=== PATIENT | female | born 1945 | race Caucasian/White ===

== ENCOUNTER 2022-06-07 08:14 | Inpatient (IN) ==
[2022-06-07] MEDS ORDERED: 0.9 % SODIUM CHLORIDE 500 ML IV ONE (08:50)
[2022-06-07] MEDS ORDERED: PHENobarb/HYOSCY/ATROPINE/SCOP 1 DOSE BOTTLE PO ONE (08:50)
[2022-06-07] MEDS ORDERED: ONDANSETRON 4 MG ODT TABLET SL ONE (08:50)
--- NOTE | 2022-06-07 08:56 | Emergency Department Note ---
Abdominal Pain HPI General Chief Complaint: Abdominal Pain Stated Complaint: Lower Chest Pain Time Seen by Provider: 06/07/22 08:33 Source: patient and family Mode of arrival: ambulatory Limitations: no limitations History of Present Illness HPI Narrative: Narrative: 76-year-old female with past medical history of A. fib on Coumadin, diverticulitis, allergy to azithromycin, cephalexin, clindamycin and as below pr esents with dull persistent moderate 6/10 abdominal pain more in the epigastric region associated with mild dizziness shortness of breath nausea and vomiting. No headache no chest pain no constipation diarrhea fever or chills. Patient is fully immunized for COVID including boosters. Related Data Home Medications Medication Instructions Recorded Confirmed bevacizumab 25 mg/mL intravenous 25 mg IV .[id number] 10/05/20 06/07/22 solution (Avastin) multivitamin [Daily Vitamins] 1 tab PO QDAY 10/05/20 06/07/22 simvastatin 20 mg tablet 20 mg PO DAILY 10/05/20 06/08/22 carvedilol 25 mg tablet (Coreg) 25 mg PO BID 10/11/20 06/07/22 latanoprost 0.005 % eye drops 1 drp ophthalmic (eye) QPM 06/08/22 06/08/22 Previous Rx's Medication Instructions Recorded potassium chloride 10 mEq 10 meq PO BID #90 caps 11/22/20 capsule,extended release warfarin 5 mg tablet See Rx Instructions .Route 04/11/22 .COMPLEX #30 tabs Allergies Allergy/AdvReac Type Severity Reaction Status Date / Time azithromycin AdvReac Diarrhea Verified 06/07/22 08:29 cephalexin AdvReac Diarrhea Verified 06/07/22 08:29 clindamycin AdvReac Diarrhea Verified 06/07/22 08:29 Review of Systems ROS ROS Narrative: Narrative: All systems ED: reviewed and negative except as stated. Constitutional: Reports as per HPI PFSH Narrative Patient History Narrative: Narrative: Medical/Surgical/Family History All Active Problems (Updated 06/08/22 @ 07:55 by Frankie Fenton MD) Small bowel obstruction (Acute) MCC (current) use of anticoagulants (Acute) Annual physical exam (Acute) Need for hepatitis C screening test (Acute) Medicare annual wellness visit, initial (Acute) History of tubal ligation (Chronic) History of surgery (Chronic) Diverticulitis (Chronic) COPD (chronic obstructive pulmonary disease) (Chronic) Atrial fibrillation (Chronic) Medical History Annual physical exam Atrial fibrillation COPD (chronic obstructive pulmonary disease) 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 History of tubal ligation 1977? Family History Mother Lung cancer Grandfather Lung cancer Maternal Grandmother Lung cancer Maternal Social History Smoking Status: Current every day smoker Alcohol Intake Frequency: does not drink Substance Use: does not use Exam Narrative Narrative: Narrative: General Limitations: no limitations Head Head: Present atraumatic and normocephalic Respiratory Respiratory: Present normal lung sounds bilaterally Cardiovascular Cardiovascular: Present irregular rhythm Adbominal Abdominal: Present soft, tenderness (diffuse, more epigastric region), guarding and normal bowel sounds; Absent rebound or organomegaly Extremities Extremities: Absent pedal edema, cyanosis or clubbing Neurological Neurological: Present alert and oriented X3 Skin Skin: Present warm (WNL) Course Course Course Narrative: CBC, CMP, UA, amylase, lipase, PT/INR, COVID, CT abdominal pelvis with contrast were ordered. Normal saline 500 mL IV Zofran 4 mg IV and GI cocktail was given. WBC count is 13.3 with left shift INR 1.[address] abdomen pelvis is consistent with [facility] NAME: Tatyana Cordero [address] [place] [address] : 1945 [address] Service Date: 06/07/22 Report # [id number] [place] [address] Bharathi Villanueva M.D. MR #: [id number] Cat Scan Report Signed Ordering Physician:Frankie Fenton M.D. Date of Service:06/07/22 Procedure(s):CT abdomen pelvis w con CLINICAL INFORMATION: Abdominal pain COMPARISON: None. TECHNIQUE: Following enteric contrast, 80 cc of Isovue-370 were injected intravenously, and 60 seconds later, 0.625 mm helical slices were obtained from the mid heart through the subtrochanteric regions. Following reconstruction, 2.5 mm sagittal, coronal and axial reformatted images were processed and reviewed at bone, lung and soft tissue windows. Five minutes later, 0.625 mm helical slices were obtained from the mid heart through the kidneys and viewed at soft tissue windows.The exam was performed using radiation dose optimization techniques including, but not limited to, automated exposure control, adjustment of the mA and/or kV according to patient size and use of iterative reconstruction technique. FINDINGS: The lung bases show mild atelectasis in the left lower lobe. No infiltrates or effusions. The heart is markedly enlarged with calcific plaque in the visualized coronary arteries. Abdominal images show the gallbladder and bile ducts, liver, both kidneys, adrenal glands, spleen, pancreas and aorta, including aortic branches, are normal in size, configuration and attenuation without focal lesion. Small amount of ascites present in the perihepatic and deep true pelvic regions. No free air or adenopathy. Pelvic images show normal urinary bladder. Hysterectomy oophorectomy changes noted. A high-grade mid jejunal obstruction present-likely related to adhesions or stricture. The stomach duodenum and proximal jejunum are moderately dilated to the obstruction level with the distal small bowel is decompressed. Normal amount of stool present within the colon. Bone windows show no osseous abnormality IMPRESSION: High-grade mid jejunal obstruction likely related to adhesions or stricture. It is located in the right upper quadrant. Small of fluid in the perihepatic and deep true pelvis suggests early third spacing. Small epigastric hernia containing the anterior wall of the transverse colon. Marked cardiomegaly Interpreted and Authenticated by: Bharathi Villanueva 06/07/22 will contact surgery. Discussed case with Dr. Grant who will come and evaluate the patient. Vital Signs Vital signs: Vital Signs Temperature 97.7 F 06/07/22 08:22 Pulse Rate 136 H 06/07/22 08:22 Respiratory Rate 16 06/07/22 08:22 Blood Pressure 102/72 06/07/22 08:22 Pulse Oximetry (%) 94 06/07/22 08:22 Oxygen Delivery Method 06/07/22 08:22 Temperature 99 F 06/08/22 03:24 Pulse Rate 130 H 06/08/22 03:24 Respiratory Rate 18 06/08/22 03:24 Blood Pressure 98/60 09/30/22 03:24 Pulse Oximetry (%) 90 06/08/22 03:24 Oxygen Delivery Method 06/08/22 03:24 Oxygen Flow Rate (L/min) 2 06/07/22 18:35 MDM MDM Narrative Medical decision making narrative: Narrative: Lab Data Result diagrams: 06/07/22 09:16 06/07/22 09:16 Labs: Lab Results 06/07/22 06/07/22 06/07/22 Range/Units 09:06 09:16 09:16 WBC 13.3 H (4.5-11.0) K/mcL RBC 4.72 (3.59-5.38) M/mcL Hgb 14.8 (11.2-15.7) g/dL Hct 45.3 H (34.1-44.9) % POC Hct 47.0 (36-48) MCV 96.0 (80.0-100.0) fL MCH 31.4 (26.0-34.0) pg MCHC 32.7 (31.0-36.0) g/dL RDW 13.4 (11.5-14.5) % Plt Count 140 (140-440) K/mcL MPV 12.3 (8.8-12.5) fL Immature Gran % (Auto) 0.5 (0.0-0.5) % Neut % (Auto) 81.7 H (38.0-78.0) % Lymph % (Auto) 12.4 L (15.5-49.0) % [place] % (Auto) 4.6 (1.0-12.0) % Eos % (Auto) 0.3 (0.0-7.0) % Baso % (Auto) 0.5 (0.0-2.0) % Lymph # (Auto) 1.65 (1.50-4.80) K/mcL [place] # (Auto) 0.61 (0.10-0.90) K/mcL Eos # (Auto) 0.04 (0.00-0.70) K/mcL Baso # (Auto) 0.07 (0.00-0.30) K/mcL Immature Gran # 0.06 H (0.00-0.05) K/mcl Absolute Neutrophils 10.90 H (1.80-8.00) K/mcL PT (11.9-14.5) sec INR (0.9-1.1) POC Sodium 137 (133-145) Sodium 138 (133-145) mmol/L POC Potassium 4.7 (3.3-5.1) Potassium 4.1 (3.3-5.1) mmol/L POC Chloride 98 (96-108) Chloride 97 (96-108) mmol/L Carbon Dioxide 34 H (22-30) mmol/L POC Total CO2 34.0 H (22-30) Anion Gap 7.0 L (8.0-16.0) POC BUN 13 (6-20) BUN 10 (8-23) mg/dL Creatinine 0.6 (0.6-1.1) mg/dL POC Creatinine 0.6 (0.6-1.2) GFR Calculation 88 Glucose 138 H (70-105) mg/dL POC Glucose 143 H (70-105) Calcium 9.5 (8.6-10.4) mg/dL POC WB Ioniz Calcium 1.00 L (1.16-1.32) Total Bilirubin 0.7 (0.1-1.0) mg/dL AST 25 (<32) U/L ALT 22 (<40) U/L Alkaline Phosphatase 117 (39-117) U/L Total Protein 6.7 (5.9-8.4) gm/dL Albumin 4.2 (3.2-5.2) gm/dL Globulin 2.5 (2.2-3.7) gm/dL Albumin/Globulin Ratio 1.7 (1.0-2.3) Amylase 23 L (28-100) U/L Lipase 15 (7-60) U/L Urine Color Urine Appearance (Clear) Urine pH (5.0-9.0) Ur Specific [place] (1.000-1.035) Urine Protein (Negative) mg/dL Urine Glucose (UA) (Negative) mg/dL Urine Ketones (Negative) mg/dL Urine Occult Blood (Negative) mg/dL Urine Nitrate (Negative) Urine Bilirubin (Negative) mg/dL Urine Urobilinogen mg/dL Ur Leukocyte Esterase (Negative) /uL Urine RBC (0-3) /hpf Urine WBC (0-4) /hpf Ur Squamous Epith Cells (0-4) /hpf Amorphous Crystals (None) /hpf Urine Bacteria (0) /hpf Hyaline Casts (0-2) /lph Granular Casts (0-0) /lph Urine Mucus (None) /hpf Ur Culture Indicated? 06/07/22 06/07/22 Range/Units 09:16 09:57 WBC (4.5-11.0) K/mcL RBC (3.59-5.38) M/mcL Hgb (11.2-15.7) g/dL Hct (34.1-44.9) % POC Hct (36-48) MCV (80.0-100.0) fL MCH (26.0-34.0) pg MCHC (31.0-36.0) g/dL RDW (11.5-14.5) % Plt Count (140-440) K/mcL MPV (8.8-12.5) fL Immature Gran % (Auto) (0.0-0.5) % Neut % (Auto) (38.0-78.0) % Lymph % (Auto) (15.5-49.0) % [place] % (Auto) (1.0-12.0) % Eos % (Auto) (0.0-7.0) % Baso % (Auto) (0.0-2.0) % Lymph # (Auto) (1.50-4.80) K/mcL [place] # (Auto) (0.10-0.90) K/mcL Eos # (Auto) (0.00-0.70) K/mcL Baso # (Auto) (0.00-0.30) K/mcL Immature Gran # (0.00-0.05) K/mcl Absolute Neutrophils (1.80-8.00) K/mcL PT 22.8 H (11.9-14.5) sec INR 1.9 H (0.9-1.1) POC Sodium (133-145) Sodium (133-145) mmol/L POC Potassium (3.3-5.1) Potassium (3.3-5.1) mmol/L POC Chloride (96-108) Chloride (96-108) mmol/L Carbon Dioxide (22-30) mmol/L POC Total CO2 (22-30) Anion Gap (8.0-16.0) POC BUN (6-20) BUN (8-23) mg/dL Creatinine (0.6-1.1) mg/dL POC Creatinine (0.6-1.2) GFR Calculation Glucose (70-105) mg/dL POC Glucose (70-105) Calcium (8.6-10.4) mg/dL POC WB Ioniz Calcium (1.16-1.32) Total Bilirubin (0.1-1.0) mg/dL AST (<32) U/L ALT (<40) U/L Alkaline Phosphatase (39-117) U/L Total Protein (5.9-8.4) gm/dL Albumin (3.2-5.2) gm/dL Globulin (2.2-3.7) gm/dL Albumin/Globulin Ratio (1.0-2.3) Amylase (28-100) U/L Lipase (7-60) U/L Urine Color Yellow Urine Appearance Turbid A (Clear) Urine pH 8.0 (5.0-9.0) Ur Specific [place] 1.035 (1.000-1.035) Urine Protein 30 A (Negative) mg/dL Urine Glucose (UA) Negative (Negative) mg/dL Urine Ketones Negative (Negative) mg/dL Urine Occult Blood Negative (Negative) mg/dL Urine Nitrate Negative (Negative) Urine Bilirubin Negative (Negative) mg/dL Urine Urobilinogen Negative mg/dL Ur Leukocyte Esterase Negative (Negative) /uL Urine RBC 4 H (0-3) /hpf Urine WBC 0 (0-4) /hpf Ur Squamous Epith Cells 0 (0-4) /hpf Amorphous Crystals Mod A (None) /hpf Urine Bacteria None (0) /hpf Hyaline Casts 7 H (0-2) /lph Granular Casts 7 H (0-0) /lph Urine Mucus Few A (None) /hpf Ur Culture Indicated? No ED POC Tests ED POC Tests: KRISTINA - SARS Antigen Negative Discharge Plan Patient/Caregiver Discharge Instructions Pt seen by PARTNERSHIP MARKETING MANAGER/PA only: No Clinical Impression: Small bowel obstruction Patient Disposition: Xfer As Inpt ([facility]) Condition: Fair Discharge Date/Time: 06/07/22 13:55
[2022-06-07 09:12] LABS: POC Creatinine 0.6 (0.6-1.2); POC Potassium 4.7 (3.3-5.1)
[2022-06-07 10:25] LABS: Basophils # (Auto) 0.07 K/mcL (0.00-0.30); Basophils % (Auto) 0.5 % (0.0-2.0); Eosinophils # (Auto) 0.04 K/mcL (0.00-0.70); Eosinophils % (Auto) 0.3 % (0.0-7.0); Hematocrit 45.3 % (34.1-44.9); Hemoglobin 14.8 g/dL (11.2-15.7); Lymphocytes # (Auto) 1.65 K/mcL (1.50-4.80); Lymphocytes % (Auto) 12.4 % (15.5-49.0); Mean Corpuscular HGB Conc 32.7 g/dL (31.0-36.0); Mean Platelet Volume 12.3 fL (8.8-12.5); Monocytes # (Auto) 0.61 K/mcL (0.10-0.90); Monocytes % (Auto) 4.6 % (1.0-12.0); Neutrophils % (Auto) 81.7 % (38.0-78.0); Platelet Count 140 K/mcL (140-440); RBC 4.72 M/mcL (3.59-5.38); Red Cell Distribution Width 13.4 % (11.5-14.5); WBC 13.3 K/mcL (4.5-11.0)
--- NOTE | 2022-06-07 10:29 | Cat Scan Report ---
CLINICAL INFORMATION: Abdominal pain COMPARISON: None. TECHNIQUE: Following enteric contrast, 80 cc of Isovue-370 were injected intravenously, and 60 seconds later, 0.625 mm helical slices were obtained from the mid heart through the subtrochanteric regions. Following reconstruction, 2.5 mm sagittal, coronal and axial reformatted images were processed and reviewed at bone, lung and soft tissue windows. Five minutes later, 0.625 mm helical slices were obtained from the mid heart through the kidneys and viewed at soft tissue windows.The exam was performed using radiation dose optimization techniques including, but not limited to, automated exposure control, adjustment of the mA and/or kV according to patient size and use of iterative reconstruction technique. FINDINGS: The lung bases show mild atelectasis in the left lower lobe. No infiltrates or effusions. The heart is markedly enlarged with calcific plaque in the visualized coronary arteries. Abdominal images show the gallbladder and bile ducts, liver, both kidneys, adrenal glands, spleen, pancreas and aorta, including aortic branches, are normal in size, configuration and attenuation without focal lesion. Small amount of ascites present in the perihepatic and deep true pelvic regions. No free air or adenopathy. Pelvic images show normal urinary bladder. Hysterectomy oophorectomy changes noted. A high-grade mid jejunal obstruction present-likely related to adhesions or stricture. The stomach duodenum and proximal jejunum are moderately dilated to the obstruction level with the distal small bowel is decompressed. Normal amount of stool present within the colon. Bone windows show no osseous abnormality IMPRESSION: High-grade mid jejunal obstruction likely related to adhesions or stricture. It is located in the right upper quadrant. Small of fluid in the perihepatic and deep true pelvis suggests early third spacing. Small epigastric hernia containing the anterior wall of the transverse colon. Marked cardiomegaly Interpreted and Authenticated by: Bharathi Villanueva 06/07/22
[2022-06-07 10:46] LABS: ALT/SGPT 22 U/L (<40); AST/SGOT 25 U/L (<32); Albumin 4.2 gm/dL (3.2-5.2); Albumin/Globulin Ratio 1.7 (1.0-2.3); Alkaline Phosphatase 117 U/L (39-117); Amylase 23 U/L (28-100); Bilirubin,Total 0.7 mg/dL (0.1-1.0); Blood Urea Nitrogen 10 mg/dL (8-23); Calcium 9.5 mg/dL (8.6-10.4); Carbon Dioxide 34 mmol/L (22-30); Chloride 97 mmol/L (96-108); Globulin 2.5 gm/dL (2.2-3.7); Glomerular Filtration Rate 88; Glucose 138 mg/dL (70-105)
[2022-06-07 10:51] LABS: INR 1.9 (0.9-1.1); Prothrombin Time 22.8 sec (11.9-14.5)
[2022-06-07 11:43] LABS: Appearance,Urine TURBID (Clear); Bilirubin,Urine Negative (Negative); Color,Urine YELLOW; Culture Indicated,Urine No; Glucose,Urine (UA) Negative (Negative); Ketones,Urine Negative (Negative); Leukocyte Esterase,Urine Negative /uL (Negative); Mucus,Urine FEW /hpf; Nitrate,Urine Negative (Negative); Protein,Urine 30 mg/dL (Negative); Specific Gravity,Urine 1.035 (1.000-1.035); Urine Amorphous Crystals MOD /hpf; Urine Blood Negative (Negative); Urine Granular Cast 7 /lph (0-0); Urine Hyaline Cast 7 /lph (0-2); Urine RBC 4 /hpf (0-3); Urine Squamous Epithelial Cell 0 /hpf (0-4); Urine WBC 0 /hpf (0-4); Urobilinogen,Urine Negative
--- NOTE | 2022-06-07 12:55 | General Surg History&Physical ---
HPI History of Present Illness Patient information: Note initiated : 06/07/22 at 12:52 pm Service Date, if different from initiated Date: [] Patient: Tatyana Cordero a 76 y/o F admitted on for Lower Chest Pain. Chief Complaint: [] Chief complaint: Abdominal distention abdominal pain History of present illness: Ms. Cordero is a 76 year old F who presents with 1 day history of abdominal distention, epigastric abdominal pain, nausea without emesis. Patient denies any prior history of similar sort of pain or problems. Patient has an extensive past surgical history involving diverticulitis, ostomy and ostomy reversal. At this time she has no fevers or chills, does have some abdominal pain with mild nausea without emesis. 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) Annual physical exam (Acute) Need for hepatitis C screening test (Acute) Medicare annual wellness visit, initial (Acute) History of tubal ligation (Chronic) History of surgery (Chronic) Diverticulitis (Chronic) COPD (chronic obstructive pulmonary disease) (Chronic) Atrial fibrillation (Chronic) Medical History Annual physical exam Atrial fibrillation COPD (chronic obstructive pulmonary disease) 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 History of tubal ligation 1977? Family History Mother Lung cancer Grandfather Lung cancer Maternal Grandmother Lung cancer Maternal Social History marital status: occupational status: retired smoking status: Current every day smoker alcohol intake frequency: does not drink substance use type: does not use MEDS/ALLERGIES Home Medications and Allergies Home Medications Medication Instructions Recorded Confirmed Type bevacizumab 25 mg/mL intravenous 25 mg IV .[id number] 10/05/20 06/07/22 History solution (Avastin) latanoprost See Rx Instructions ophthalmic 10/05/20 06/07/22 History (eye) QDAY multivitamin [Daily Vitamins] 1 tab PO QDAY 10/05/20 06/07/22 History simvastatin 20 mg tablet 20 mg PO QDAY 10/05/20 06/07/22 History carvedilol 25 mg tablet (Coreg) 25 mg PO BID 10/11/20 06/07/22 History potassium chloride 10 mEq 10 meq PO BID #90 caps 11/22/20 06/07/22 Rx capsule,extended release warfarin 5 mg tablet See Rx Instructions .Route 04/11/22 06/07/22 Rx .COMPLEX #30 tabs Allergies Allergy/AdvReac Type Severity Reaction Status Date / Time azithromycin AdvReac Diarrhea Verified 06/07/22 08:29 cephalexin AdvReac Diarrhea Verified 06/07/22 08:29 clindamycin AdvReac Diarrhea Verified 06/07/22 08:29 Physical Examination Vital Signs Vital signs: Temp Pulse Resp BP Pulse Ox O2 Del Method O2 Flow Rate 97.7 F 125 H 16 115/75 90 2 06/07/22 08:22 06/07/22 12:50 06/07/22 08:22 06/07/22 12:50 06/07/22 12:50 06/07/22 12:50 06/07/22 12:50 General physical appearance General physical exam: well developed, well nourished and no distress Eyes Eye exam: PERRL and normal ocular movement ENT ENT exam: normal pinna, normal nares, normal mucosa, no hearing loss and no congestion Head Head exam IM: Present atraumatic and normocephalic Neck Neck exam: no masses, no bruits, trachea midline, no lymphadenopathy and no venous distension Cardiovascular Cardiovascular exam IM: Present normal rate and rhythm Respiratory Respiratory exam: normal expansion, normal respiratory effort, clear to percussion and clear to auscultation Abdomen Abdomen: Present soft, non tender, bowel sounds and distended; Absent guarding, rigid or rebound Hernia: Present none Genitourinary Genitourinary (Female): Present normal external genitalia Rectum Rectum: Present normal sphincter tone, no hemorrhoids, no tenderness, no masses and no bleeding Integumentary Integumentary: Present no rash, no growths and no abnormal pigmentation Neurologic Neurologic: Present normal coordination and normal sensation Musculoskeletal Musculoskeletal: Present normal gait and normal posture Psychiatric Psychiatric: Present oriented to time, oriented to person, oriented to place, speech is normal and memory intact Results Labs Result diagrams: 06/07/22 09:16 06/07/22 09:16 Labs: Abnormal lab results 06/07/22 06/07/22 06/07/22 Range/Units 09:06 09:16 09:16 WBC 13.3 H (4.5-11.0) K/mcL Hct 45.3 H (34.1-44.9) % Neut % (Auto) 81.7 H (38.0-78.0) % Lymph % (Auto) 12.4 L (15.5-49.0) % Immature Gran # 0.06 H (0.00-0.05) K/mcl Absolute Neutrophils 10.90 H (1.80-8.00) K/mcL PT (11.9-14.5) sec INR (0.9-1.1) Carbon Dioxide 34 H (22-30) mmol/L POC Total CO2 34.0 H (22-30) Anion Gap 7.0 L (8.0-16.0) Glucose 138 H (70-105) mg/dL POC Glucose 143 H (70-105) POC WB Ioniz Calcium 1.00 L (1.16-1.32) Amylase 23 L (28-100) U/L Urine Appearance (Clear) Urine Protein (Negative) mg/dL Urine RBC (0-3) /hpf Amorphous Crystals (None) /hpf Hyaline Casts (0-2) /lph Granular Casts (0-0) /lph Urine Mucus (None) /hpf 06/07/22 06/07/22 Range/Units 09:16 09:57 WBC (4.5-11.0) K/mcL Hct (34.1-44.9) % Neut % (Auto) (38.0-78.0) % Lymph % (Auto) (15.5-49.0) % Immature Gran # (0.00-0.05) K/mcl Absolute Neutrophils (1.80-8.00) K/mcL PT 22.8 H (11.9-14.5) sec INR 1.9 H (0.9-1.1) Carbon Dioxide (22-30) mmol/L POC Total CO2 (22-30) Anion Gap (8.0-16.0) Glucose (70-105) mg/dL POC Glucose (70-105) POC WB Ioniz Calcium (1.16-1.32) Amylase (28-100) U/L Urine Appearance Turbid A (Clear) Urine Protein 30 A (Negative) mg/dL Urine RBC 4 H (0-3) /hpf Amorphous Crystals Mod A (None) /hpf Hyaline Casts 7 H (0-2) /lph Granular Casts 7 H (0-0) /lph Urine Mucus Few A (None) /hpf Diabetes panel 06/07/22 Range/Units 09:16 Sodium 138 (133-145) mmol/L Potassium 4.1 (3.3-5.1) mmol/L Chloride 97 (96-108) mmol/L Carbon Dioxide 34 H (22-30) mmol/L BUN 10 (8-23) mg/dL Creatinine 0.6 (0.6-1.1) mg/dL Glucose 138 H (70-105) mg/dL Calcium 9.5 (8.6-10.4) mg/dL AST 25 (<32) U/L ALT 22 (<40) U/L Alkaline Phosphatase 117 (39-117) U/L Total Protein 6.7 (5.9-8.4) gm/dL Albumin 4.2 (3.2-5.2) gm/dL Calcium panel 06/07/22 Range/Units 09:16 Calcium 9.5 (8.6-10.4) mg/dL Albumin 4.2 (3.2-5.2) gm/dL Pituitary panel 06/07/22 Range/Units 09:16 Sodium 138 (133-145) mmol/L Potassium 4.1 (3.3-5.1) mmol/L Chloride 97 (96-108) mmol/L Carbon Dioxide 34 H (22-30) mmol/L BUN 10 (8-23) mg/dL Creatinine 0.6 (0.6-1.1) mg/dL Glucose 138 H (70-105) mg/dL Calcium 9.5 (8.6-10.4) mg/dL Adrenal panel 06/07/22 Range/Units 09:16 Sodium 138 (133-145) mmol/L Potassium 4.1 (3.3-5.1) mmol/L Chloride 97 (96-108) mmol/L Carbon Dioxide 34 H (22-30) mmol/L BUN 10 (8-23) mg/dL Creatinine 0.6 (0.6-1.1) mg/dL Glucose 138 H (70-105) mg/dL Calcium 9.5 (8.6-10.4) mg/dL Total Bilirubin 0.7 (0.1-1.0) mg/dL AST 25 (<32) U/L ALT 22 (<40) U/L Alkaline Phosphatase 117 (39-117) U/L Total Protein 6.7 (5.9-8.4) gm/dL Albumin 4.2 (3.2-5.2) gm/dL All other labs normal. Imaging CT scan - abdomen: image reviewed A/P Assessment and plan (1) Small bowel obstruction: Plan: This is a pleasant 76-year-old female who presents with signs and symptoms most consistent with partial small bowel obstruction. Plan: Admit, n.p.o., NG tube and IV fluid. Anticipate small bowel follow-through tomorrow. Status: Acute Time Spent With Patient Time: Total time spent is greater than 50% in coordination of care (as documented) at patient's floor/unit and/or counseling patient:
[2022-06-07] MEDS ORDERED: BENZOCAINE 1 SPRAY BOTTLE TOPICAL ONE (13:04)
[2022-06-07] MEDS ORDERED: HYDROmorphone 0.5 MG/0.5 ML SYRINGE IV ONE (13:14)
--- NOTE | 2022-06-07 13:58 | XRay Report ---
CLINICAL INFORMATION: Post NG placement small bowel obstruction COMPARISON: None. FINDINGS: NG tip overlies the proximal gastric body. Stomach and proximal small bowel are moderately dilated with distal small bowel and colon decompression compatible high-grade distal small bowel obstruction. No change. No free air. IMPRESSION: NG tube in satisfactory position. High-grade distal small bowel obstruction pattern stable Interpreted and Authenticated by: Bharathi Villanueva 06/07/22
[2022-06-07] MEDS: DEXTROSE 5%-1/2NS 1,000 ML IV SCH ×2 (14:21→23:49)
[2022-06-07] MEDS: 0.9 % SODIUM CHLORIDE 10 ML SYRINGE IV SCH ×2 (14:26→23:43)
[2022-06-07] MEDS ORDERED: SUCRETS LOZENGE PO PRN (15:33)
[2022-06-07] MEDS: ACETAMINOPHEN 500 MG/50 ML BAG IV PRN ×2 (18:00→23:43)
[2022-06-08] MEDS: ONDANSETRON 4 MG/2 ML VIAL IV PRN ×2 (03:50→22:37)
[2022-06-08] MEDS: HYDROmorphone 0.5 MG/0.5 ML SYRINGE IV PRN ×4 (04:36→21:17)
[2022-06-08] MEDS: 0.9 % SODIUM CHLORIDE 10 ML SYRINGE IV SCH ×3 (04:37→22:12)
[2022-06-08] MEDS ORDERED: HYDROmorphone 0.5 MG/0.5 ML SYRINGE ONE (04:45)
[2022-06-08] MEDS: ACETAMINOPHEN 500 MG/50 ML BAG IV PRN ×3 (05:32→23:22)
[2022-06-08] MEDS: DEXTROSE 5%-1/2NS 1,000 ML IV SCH ×3 (10:51→22:38)
--- NOTE | 2022-06-08 13:40 | General Surgery Progress Note ---
SUBJECTIVE Subjective Patient information: Note initiated : 06/08/22 at 1:35 pm Service Date, if different from initiated Date: [] Patient: Tatyana Cordero 76 y/o F admitted on 06/07/22 for Lower Chest Pain. Chief Complaint: [] Principal diagnosis: Admitted with small bowel obstruction Interval history: Did well overnight, continues to have crampy intermittent abdominal pain. No flatus, no bowel movement at this time. No fevers chills nausea or vomiting. Undergoing small bowel follow-through at this time. Constitutional Vitals: Vital Signs Temp Pulse Resp BP Pulse Ox O2 Del Method O2 Flow Rate 99.1 F H 130 H 16 98/67 96 5 06/08/22 12:00 06/08/22 03:24 06/08/22 12:00 06/08/22 12:00 06/08/22 12:00 06/08/22 12:00 06/08/22 12:00 Period Temp Pulse Resp BP Sys/Solomon Pulse Ox O2 Del Method O2 Flow Rate Last 24 Hr 97.7 F-99.1 F 119-130 16-20 90-106/55-67 90-96 Nasal Cannula- Room Air 2-5 Intake and Output 06/07/22 06/08/22 06/08/22 21:59 05:59 13:59 Intake Total 50 1107 1050 Output Total 100 1200 Balance -50 -93 1050 Weight 105 lb 8 oz Intake & Output: Intake & Output 06/07/22 06/08/22 06/08/22 21:59 05:59 13:59 Intake Total 50 1107 1050 Output Total 100 1200 Balance -50 -93 1050 Weight 105 lb 8 oz Intake: IV 50 997 1050 Dextrose 5%-1/2Ns IV Solution 1 947 1000 ,000 ml @ 100 mls/hr IV .Q10H [facility] Rx#:[id number] Oral 50 Tube Feeding 0 0 NG Tube Flush 60 Right Nare 60 Output: Gastric Drainage 100 900 Right Nare 100 900 Void Amount 300 Other: Urine Appearance Clear Clear Urine Color Yellow Yellow # Voids 1 General appearance: no acute distress GI/Abdominal GI/Abdominal exam: Present soft and distended; Absent guarding, hernia, rebound or tenderness A/P Assessment and plan (1) Small bowel obstruction: Status: Acute Plan Continue n.p.o. Awaiting results of small bowel follow-through. Time Spent With Patient Time: Total time spent is greater than 50% in coordination of care (as documented) at patient's floor/unit and/or counseling patient:
[2022-06-08] MEDS ORDERED: CARVEDILOL 6.25 MG TABLET ONE (22:31)
[2022-06-09] MEDS: DEXTROSE 5%-1/2NS 1,000 ML IV SCH ×3 (04:07→18:02)
[2022-06-09] MEDS: ACETAMINOPHEN 500 MG/50 ML BAG IV PRN ×2 (05:12→18:54)
[2022-06-09] MEDS: 0.9 % SODIUM CHLORIDE 10 ML SYRINGE IV SCH ×3 (05:13→20:50)
[2022-06-09 07:26] LABS: Basophils # (Auto) 0.05 K/mcL (0.00-0.30); Basophils % (Auto) 0.4 % (0.0-2.0); Eosinophils % (Auto) 0.8 % (0.0-7.0); Hematocrit 43.8 % (34.1-44.9); Hemoglobin 13.5 g/dL (11.2-15.7); Lymphocytes % (Auto) 18.2 % (15.5-49.0); Mean Cell Volume 100.7 fL (80.0-100.0); Mean Corpuscular HGB Conc 30.8 g/dL (31.0-36.0); Mean Platelet Volume 12.2 fL (8.8-12.5); Monocytes # (Auto) 1.77 K/mcL (0.10-0.90); Monocytes % (Auto) 14.7 % (1.0-12.0); Neutrophils % (Auto) 65.4 % (38.0-78.0); Platelet Count 110 K/mcL (140-440); RBC 4.35 M/mcL (3.59-5.38); Red Cell Distribution Width 13.3 % (11.5-14.5); WBC 12.1 K/mcL (4.5-11.0)
[2022-06-09 07:53] LABS: Blood Urea Nitrogen 13 mg/dL (8-23); Calcium 8.7 mg/dL (8.6-10.4); Chloride 93 mmol/L (96-108); Glomerular Filtration Rate 93; Glucose 130 mg/dL (70-105)
[2022-06-09] MEDS ORDERED: CARVEDILOL 12.5 MG TABLET PO SCH (08:00)
[2022-06-09] MEDS: CARVEDILOL 12.5 MG TABLET PO SCH ×2 (08:33→17:38)
--- NOTE | 2022-06-09 09:16 | XRay Report ---
INDICATION: f/u sbo TECHNIQUE: Water-soluble contrast material was administered through a nasogastric tube. Serial images were obtained to 24 hours postingestion COMPARISON: Previous plain film examination dated 06/07/2022. Previous CT scan dated 06/07/2022 FINDINGS: There is an esophagogastric tube within the stomach. Coke Inspector film demonstrates a gas-filled mildly dilated small bowel. There is some fecal material within the colon. Imaging through 24 hours demonstrates very slow progression of contrast material within small bowel. At 24 hours most of the contrast material has been absorbed. Patient was placed on suction due to severe pain and nausea. No definite contrast material identified within the colon by 24 hours. IMPRESSION: 1. No definite colonic contrast material at 24 hours post ingestion 2. Mildly dilated small bowel with prolonged transit time 3. This patient was on nasogastric tube suction due to pain and nausea Interpreted and Authenticated by: Bharathi Walker 06/09/22
--- NOTE | 2022-06-09 09:38 | General Surgery Progress Note ---
SUBJECTIVE Subjective Patient information: Note initiated : 06/09/22 at 9:35 am Service Date, if different from initiated Date: [] Patient: Tatyana Cordero 76 y/o F admitted on 06/07/22 for Lower Chest Pain. Chief Complaint: [] Principal diagnosis: Admitted with small bowel obstruction Interval history: Patient with continued crampy abdominal pain this morning, underwent small bowel follow-through yesterday which did not show contrast in the colon by 24 hours. Patient with some nausea this morning, NG tube placed back on suction with 2 L of output. Constitutional Vitals: Vital Signs Temp Pulse Resp BP Pulse Ox O2 Del Method O2 Flow Rate 99 F 103 H 16 100/57 97 2 06/09/22 08:00 06/09/22 03:17 06/09/22 08:00 06/09/22 08:00 06/09/22 08:00 06/09/22 08:40 06/09/22 08:40 Period Temp Pulse Resp BP Sys/Solomon Pulse Ox O2 Del Method O2 Flow Rate Last 24 Hr 98.7 F-100 F 103-131 - 81-103/57-67 90-97 Nasal Cannula- Room Air 2-5 Intake and Output 06/08/22 06/09/22 06/09/22 21:59 05:59 13:59 Intake Total 1050 1872 50 Output Total 1999 1600 Balance -950 272 50 Weight 108 lb 12.8 oz Intake & Output: Intake & Output 06/08/22 06/09/22 06/09/22 21:59 05:59 13:59 Intake Total 1050 1872 50 Output Total 1999 1600 Balance -950 272 50 Weight 108 lb 12.8 oz Intake: IV 1050 1872 50 Dextrose 5%-1/2Ns IV Solution 1 1000 1822 ,000 ml @ 150 mls/hr IV .Q6H40M [facility] Rx#:[id number] Tube Feeding 0 0 0 Output: Gastric Drainage 1999 1400 Right Nare 1999 1400 Void Amount 200 Other: Urine Appearance Clear Clear Urine Color Yellow Dark Yellow # Voids 250 General appearance: no acute distress GI/Abdominal GI/Abdominal exam: Present soft and distended; Absent rebound, rigid or tenderness A/P Assessment and plan (1) Small bowel obstruction: Plan: Hospital day #2 admitted with partial small bowel obstruction. Long discussion with the patient about resolution of bowel obstruction and increased likelihood of need for surgery with a failed small bowel follow-through. She does not have any signs of sepsis or bowel ischemia at this time therefore no need for urgent surgical intervention right now. Plan: Continue with NG tube suction at this time. We will follow KUB in a.m. We will recheck INR this morning and continue to hold Coumadin. Will further discuss surgery with patient later today. Status: Acute Time Spent With Patient Time: Total time spent is greater than 50% in coordination of care (as documented) at patient's floor/unit and/or counseling patient:
[2022-06-09 10:56] LABS: INR 1.7 (0.9-1.1); Prothrombin Time 20.9 sec (11.9-14.5)
[2022-06-10] MEDS: DEXTROSE 5%-1/2NS 1,000 ML IV SCH ×3 (00:39→14:56)
[2022-06-10] MEDS: HYDROmorphone 0.5 MG/0.5 ML SYRINGE IV PRN ×3 (03:02→16:37)
[2022-06-10] MEDS: 0.9 % SODIUM CHLORIDE 10 ML SYRINGE IV SCH ×3 (04:57→22:00)
[2022-06-10] MEDS: ACETAMINOPHEN 500 MG/50 ML BAG IV PRN ×3 (05:11→23:36)
[2022-06-10] MEDS: CARVEDILOL 12.5 MG TABLET PO SCH ×2 (09:33→16:28)
--- NOTE | 2022-06-10 09:36 | General Surgery Progress Note ---
SUBJECTIVE Subjective Patient information: Note initiated : 06/10/22 at 9:34 am Service Date, if different from initiated Date: [] Patient: Tatyana Cordero 76 y/o F admitted on 06/07/22 for Lower Chest Pain. Chief Complaint: [] Principal diagnosis: Admitted with small bowel obstruction Interval history: Patient with no flatus, no bowel movement. She reports that there is no change in the distention of her abdomen or her pain. No contrast to the colon in greater than 24 hours on small bowel follow-through, no resolution of bowel obstruction. Pertinent ROS: No fevers chills nausea or vomiting Constitutional Vitals: Vital Signs Temp Pulse Resp BP Pulse Ox O2 Del Method O2 Flow Rate 97.4 F 91 H 20 92/57 92 2 06/10/22 07:14 06/10/22 07:14 06/10/22 07:14 06/10/22 07:14 06/10/22 07:14 06/10/22 08:50 06/10/22 08:50 Period Temp Pulse Resp BP Sys/Solomon Pulse Ox O2 Del Method O2 Flow Rate Last 24 Hr 97.4 F-99.1 F 91-116 16-20 86-100/49-59 92-97 Nasal Cannula- Room Air 2-2 Intake and Output 06/09/22 06/10/22 06/10/22 21:59 05:59 13:59 Intake Total 6539 813 7340 Output Total 325 820 Balance 434 915 0533 Weight 115 lb 11.2 oz Intake & Output: Intake & Output 06/09/22 06/10/22 06/10/22 21:59 05:59 13:59 Intake Total 5333 775 7058 Output Total 325 820 Balance 018 983 5632 Weight 115 lb 11.2 oz Intake: IV 0654 743 8317 Dextrose 5%-1/2Ns IV Solution 8 684 065 3628 ,000 ml @ 150 mls/hr IV .Q6H40M [facility] Rx#:[id number] Tube Feeding 0 0 0 NG Tube Flush 60 Right Nare 60 Output: Gastric Drainage 70 Right Nare 70 Void Amount 325 750 Other: Urine Appearance Clear Clear Urine Color Yellow Dark Yellow General appearance: cooperative and no acute distress GI/Abdominal GI/Abdominal exam: Present soft, distended and tenderness; Absent guarding, rebound or rigid A/P Assessment and plan (1) Small bowel obstruction: Plan: This is a pleasant 76-year-old female with a failed small bowel follow-through after being admitted for partial small bowel obstruction. Long discussion with the patient about high likelihood of her bowel obstruction not resolving without surgery. She verbalizes understanding. Risk, benefits, alternatives to surgical intervention discussed with her at length including details of procedure and what to expect. She verbalizes understanding, all of her questions are answered and she desires to continue with surgery. Plan: Exploratory laparotomy, possible lysis of adhesions, possible small bowel resection. Status: Acute Time Spent With Patient Time: Total time spent is greater than 50% in coordination of care (as documented) at patient's floor/unit and/or counseling patient:
[2022-06-10] MEDS ORDERED: ONDANSETRON 4 MG/2 ML VIAL ONE (11:05)
[2022-06-10] MEDS ORDERED: NALBUPHINE 10 MG/ML AMPUL IV ONE (11:05)
[2022-06-10] MEDS ORDERED: LIDOCAINE HCL/PF 100 MG/5 ML SYRINGE IV ONE (11:05)
[2022-06-10] MEDS ORDERED: PROPOFOL 200 MG/20 ML VIAL IV ONE (11:05)
[2022-06-10] MEDS ORDERED: KETAMINE 50 MG/ML Syringe (ANEST) IV ONE (11:05)
[2022-06-10] MEDS ORDERED: METOPROLOL TARTRATE 5 MG/5 ML VIAL IV ONE (11:05)
[2022-06-10] MEDS ORDERED: NALOXONE HCL 0.4 MG/ML VIAL ONE (11:05)
[2022-06-10] MEDS ORDERED: HYDROmorphone 1 MG/ML SYRINGE ONE (11:05)
[2022-06-10] MEDS ORDERED: ROCURONIUM 10 MG/ML ML IV ONE (11:05)
[2022-06-10] MEDS ORDERED: DEXAMETHASONE 10 MG/ML VIAL ONE (11:05)
[2022-06-10] MEDS ORDERED: MAGNESIUM SULFATE 2 GM/50 ML BAG IV ONE (11:05)
[2022-06-10] MEDS ORDERED: SUGAMMADEX SODIUM 200 MG/2 ML VIAL IV ONE (11:05)
[2022-06-10] MEDS ORDERED: PHENYLephrine 1 MG/10 ML SYRINGE (ANEST) ONE (11:05)
[2022-06-10] MEDS ORDERED: NALOXONE HCL 0.4 MG/ML VIAL IV PRN (12:38)
[2022-06-10] MEDS ORDERED: PROMETHAZINE 25 MG/ML VIAL IV PRN (12:38)
[2022-06-10] MEDS ORDERED: ONDANSETRON 4 MG/2 ML VIAL IV PRN (12:38)
[2022-06-10] MEDS ORDERED: MEPERIDINE 25 MG/ML VIAL IV PRN (12:38)
[2022-06-10] MEDS ORDERED: diphenhydrAMINE 50 MG/ML VIAL IV PRN (12:38)
[2022-06-10] MEDS ORDERED: IPRATROPIUM/ALBUTEROL 3 ML AMPUL.NEB NEB PRN (12:38)
[2022-06-10] MEDS ORDERED: LACTATED RINGERS 250 ML IV PRN (12:38)
[2022-06-10] MEDS ORDERED: LACTATED RINGERS 1,000 ML IV SCH (12:45)
--- NOTE | 2022-06-10 13:02 | Operative Note ---
Brief Operative Note Date of procedure: 06/10/22 Pre-op diagnosis: Partial small bowel obstruction Post-op diagnosis: same Procedure: Exploratory laparotomy, extensive lysis of adhesions Grafts/Implants: No Anesthesia: GETA Findings: Extensive adhesions throughout the pelvis with a clear transition point in the mid jejunum. Complications: none Surgeon: Ricki Grant Estimated blood loss (cc): 25 Specimens Removed/Pathology: none sent Condition: stable Disposition: PACU Operative Note Operative Note: After all risk benefits and alternatives to the procedure discussed with the patient at length she verbalized understanding and desire to continue with procedure. Patient was taken main operating placed upon operative table. General anesthesia was induced over endotracheal tube. Patient's prepped and draped in standard sterile surgical fashion. Surgical timeout was taken to verify patient and procedure being performed. Prior midline incision was used it was carried down through the skin and subcutaneous tissue. The fascia was opened under direct vision. Upon entry into the abdominal cavity a large amount of adhesions were identified. These were carefully taken down with blunt and sharp dissection to be able to fully open incision from subxiphoid down to suprapubic. Once this was done extensive lysis of adhesions was done this took greater than an hour during the lysis of adhesions there was a adhesive band between a piece of mid jejunum down to the mesentery that was kinking off the bowel causing some twisting and the bowel was dusky. Once this was removed the duskiness of the bowel went away and fluid started moving. The lysis of adhesion was carried out to the bowel was able to be ran from the ligament of Treitz down to the cecum. There was a large amount of bowels adhesed in the pelvis and this portion was difficult adhesions. Once full lysis of adhesions was carried out the bowel was ran several times several small serosal tears were reinforced with interrupted 3-0 Vicryl sutures. There were no enterotomies and the area of dusky bowel had return to normal-appearing bowel. The bowel was returned to its anatomical position. The abdominal cavity was irrigated with several liters of warm normal saline and all irrigation was suctioned free from the abdominal cavity. Once this was done the midline fas cial defect was reapproximated with a running looped 0 PDS suture. Skin was closed with surgical landon. A Prevena wound care system was then placed over the closed incision. Patient was then awakened from anesthesia transferred postanesthesia care unit awake alert in good condition.
[2022-06-10] MEDS: fentaNYL 100 MCG/2 ML VIAL IV PRN ×3 (13:39→14:17)
[2022-06-10] MEDS ORDERED: METOPROLOL TARTRATE 5 MG/5 ML VIAL IV PRN (18:19)
[2022-06-10 19:26] LABS: POC Calcium, Ionized 1.02 (1.16-1.32); POC Creatinine 0.3 (0.6-1.2); POC Potassium 3.6 (3.3-5.1)
[2022-06-10] MEDS: METOPROLOL TARTRATE 5 MG/5 ML VIAL IV PRN (19:33)
--- NOTE | 2022-06-10 19:35 | Internal Medicine Consult Note ---
HPI Data of Consult Consult date: 06/10/22 Primary Care Provider: Keny Sanders MD Consult Narrative Chief complaint: History of A. fib and tachycardia and n.p.o. status History of present illness: Patient presented to the hospital on the for small bowel obstruction. Patient failed to progress and required exploratory laparotomy with extensive lysis of adhesions on the second. Awaiting bowel function, patient n.p.o. and unable to take her beta-senia for A. fib. She is tachycardic today anywhere from the low 90s to the 120s reading this afternoon at 138. Patient denies symptoms. She is on Coreg 25 twice daily and she says her blood pressure is always low with systolics in the 90s rarely above 100. Explained to her she probably does not need to be on such a high dose of Coreg. And perhaps she should be switched to metoprolol. Patient had denies nausea. She has some abdominal discomfort. Otherwise feeling okay. But not having any flatus yet. Review of Systems: Pertinent positives as above. Denies headache/fever/chills/nausea/vomiting/chest pain/cough/dyspnea/diarrhea. 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) Annual physical exam (Acute) Need for hepatitis C screening test (Acute) Medicare annual wellness visit, initial (Acute) History of tubal ligation (Chronic) History of surgery (Chronic) Diverticulitis (Chronic) COPD (chronic obstructive pulmonary disease) (Chronic) Atrial fibrillation (Chronic) Medical History Annual physical exam Atrial fibrillation COPD (chronic obstructive pulmonary disease) Diverticulitis 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 History of tubal ligation 1977? Family History Mother Lung cancer Grandfather Lung cancer Maternal Grandmother Lung cancer Maternal Social History marital status: occupational status: retired smoking status: Current every day smoker alcohol intake frequency: does not drink substance use type: does not use MEDS/ALLERGIES Home Medications and Allergies Home Medications Medication Instructions Recorded Confirmed Type bevacizumab 25 mg/mL intravenous 25 mg IV .[id number] 10/05/20 06/07/22 History solution (Avastin) multivitamin [Daily Vitamins] 1 tab PO QDAY 10/05/20 06/07/22 History simvastatin 20 mg tablet 20 mg PO DAILY 10/05/20 06/08/22 History carvedilol 25 mg tablet (Coreg) 25 mg PO BID 10/11/20 06/07/22 History potassium chloride 10 mEq 10 meq PO BID #90 caps 11/22/20 06/07/22 Rx capsule,extended release warfarin 5 mg tablet See Rx Instructions .Route 04/11/22 06/07/22 Rx .COMPLEX #30 tabs latanoprost 0.005 % eye drops 1 drp ophthalmic (eye) QPM 06/08/22 06/08/22 History Allergies Allergy/AdvReac Type Severity Reaction Status Date / Time azithromycin AdvReac Diarrhea Verified 06/07/22 08:29 cephalexin AdvReac Diarrhea Verified 06/07/22 08:29 clindamycin AdvReac Diarrhea Verified 06/07/22 08:29 EXAM Constitutional Vitals: Temp Pulse Resp BP Pulse Ox O2 Del Method O2 Flow Rate 98.9 F 60 18 112/55 97 2 06/10/22 19:13 06/10/22 19:13 06/10/22 19:13 06/10/22 19:13 06/10/22 19:13 06/10/22 19:13 06/10/22 19:13 Exam: General: Alert, Awake, No acute Distress Eyes/N/T: EOMI, PERRL, MM Head/Neck: neck supple, normocephalic atraumatic CV: tachy irreg, No murmurs, normal s1/s2 Pulm: Clear b/l, no wheezing/rhonchi/rales Abd: soft, mild TTP, decreasedBS x4 Ext: no clubbing/cyanosis/edema Neuro: Alert, no focal deficits, moves all extremities, CN 2-12 grossly intact, Skin: warm/dry DATA Data Completed and Pending Labs: Labs from last 24 hours 06/10/22 19:21 Phosphorus Pending Magnesium Pending A/P Narrative A/P Narrative: Assessment: *SBO: s/p ex-lap lysis (06/10) *AFib w/rvr: *HLD *Met alkalosis: 2/2 above and GI H+ loss Plan: -sbo/diet per surgeon -ivf's to NS from 1/2NS given hypochloremia -IV lopressor jp while npo and prn -pt states BP always low (systolic in 90's). pt does not need to be on coreg 25mg bid -once PO intake will either lower coreg dose or likely switch to lopressor. -pt/ot -ppx: scd Time Spent With Patient Time: Total time spent is greater than 50% in coordination of care (as documented) at patient's floor/unit and/or counseling patient:
[2022-06-10] MEDS ORDERED: DEXTROSE 31 GM ORAL.SUSP PO PRN (19:36)
[2022-06-10] MEDS ORDERED: DEXTROSE 50% 50 ML VIAL IV PRN (19:36)
[2022-06-10] MEDS ORDERED: [UNRECOGNIZED DRUG - OTHER] IV SCH (19:45)
[2022-06-10] MEDS ORDERED: DEXTROSE 5% IV SCH (19:45)
[2022-06-10] MEDS ORDERED: POTASSIUM CHLORIDE IV SCH (19:45)
[2022-06-10] MEDS ORDERED: DEXTROSE 5%-1/2NS W/20MEQ KCL 1,000 ML IV SCH (20:15)
[2022-06-10] MEDS: METOPROLOL TARTRATE 5 MG/5 ML VIAL IV SCH (21:46)
[2022-06-10] MEDS: INSULIN LISPRO 1 UNIT/0.01 ML UNIT SQ SCH (22:06)
[2022-06-10] MEDS: LATANOPROST OPHTH DROPS 2.5ML BOTTLE OU SCH (22:06)
[2022-06-10] MEDS: DEXTROSE 5%-NS W/20MEQ KCL 1,000 ML IV SCH ×2 (22:16)
[2022-06-11] MEDS: METOPROLOL TARTRATE 5 MG/5 ML VIAL IV PRN ×2 (00:21→17:57)
[2022-06-11] MEDS ORDERED: ESMOLOL 2,500 MG in PREMIX 1 BAG IV SCH (02:30)
[2022-06-11] MEDS ORDERED: DILTIAZEM 125 MG/25 ML VIAL IV ONE (02:48)
[2022-06-11] MEDS: DILTIAZEM 125 MG in DEXTROSE 5% IN WATER 100 ML IV SCH ×3 (02:55→15:11)
[2022-06-11] MEDS: 0.9 % SODIUM CHLORIDE 250 ML IV SCH ×2 (02:59→15:15)
[2022-06-11] MEDS: 0.9 % SODIUM CHLORIDE 10 ML SYRINGE IV SCH ×3 (06:49→20:58)
[2022-06-11] MEDS: HYDROmorphone 0.5 MG/0.5 ML SYRINGE IV PRN ×5 (06:54→23:50)
[2022-06-11 07:08] LABS: Basophils # (Auto) 0.01 K/mcL (0.00-0.30); Basophils % (Auto) 0.1 % (0.0-2.0); Eosinophils # (Auto) 0 K/mcL (0.00-0.70); Eosinophils % (Auto) 0 % (0.0-7.0); Hematocrit 41.4 % (34.1-44.9); Hemoglobin 13.3 g/dL (11.2-15.7); Lymphocytes # (Auto) 0.78 K/mcL (1.50-4.80); Lymphocytes % (Auto) 5.9 % (15.5-49.0); Mean Cell Volume 97.2 fL (80.0-100.0); Mean Corpuscular HGB Conc 32.1 g/dL (31.0-36.0); Mean Platelet Volume 12.3 fL (8.8-12.5); Monocytes # (Auto) 1.44 K/mcL (0.10-0.90); Neutrophils % (Auto) 82.6 % (38.0-78.0); Platelet Count 135 K/mcL (140-440); RBC 4.26 M/mcL (3.59-5.38); Red Cell Distribution Width 12.8 % (11.5-14.5); WBC 13.1 K/mcL (4.5-11.0)
--- NOTE | 2022-06-11 07:25 | Internal Med Progress Note ---
SUBJECTIVE Subjective Patient information: Note initiated : 06/11/22 at 7:16 am Service Date, if different from initiated Date: [] Patient: Tatyana Cordero 76 y/o F admitted on 06/07/22 for Lower Chest Pain. Chief Complaint: [] Principal diagnosis: Admitted with small bowel obstruction Interval history: Chief complaint: History of A. fib and tachycardia and n.p.o. status History of present illness: Patient presented to the hospital on the for small bowel obstruction. Patient failed to progress and required exploratory laparotomy with extensive lysis of adhesions on the second. Awaiting bowel function, patient n.p.o. and unable to take her beta-senia for A. fib. She is tachycardic today anywhere from the low 90s to the 120s reading this afternoon at 138. Patient denies symptoms. She is on Coreg 25 twice daily and she says her blood pressure is always low with systolics in the 90s rarely above 100. Explained to her she probably does not need to be on such a high dose of Coreg. And perhaps she should be switched to metoprolol. Patient had denies nausea. She has some abdominal discomfort. Otherwise feeling okay. But not having any flatus yet. 06/11 Patient had A. fib RVR last night and required diltiazem drip. But only on 5. We will wean off to IV scheduled Lopressor. Patient denies any new complaints. She is still not having bowel function. Awaiting morning labs. Review of Systems: denies headache/fever/chills/nausea/vomiting/chest or abdominal pain/cough/dyspnea/diarrhea. Otherwise see above. Constitutional Vitals: Vital Signs Temp Pulse Resp BP Pulse Ox O2 Del Method O2 Flow Rate 98.1 F 108 H 16 97/54 96 1 06/11/22 03:48 06/11/22 06:00 06/11/22 06:00 06/11/22 06:00 06/11/22 06:00 06/11/22 06:00 06/11/22 06:00 Period Temp Pulse Resp BP Sys/Solomon Pulse Ox O2 Del Method O2 Flow Rate Last 24 Hr 97 F-98.9 F 60-145 14-20 90-114/51-72 90-100 Nasal Cannula- Simple Mask 0-6 Intake and Output 06/10/22 06/11/22 06/11/22 21:59 05:59 13:59 Intake Total 3050 50 Output Total 675 700 250 Balance 2375 -650 -250 Weight 50.887 kg Intake & Output: Intake & Output 06/10/22 06/11/22 06/11/22 21:59 05:59 13:59 Intake Total 3050 50 Output Total 675 700 250 Balance 2375 -650 -250 Weight 50.887 kg Intake: IV 1050 50 Dextrose 5%-1/2Ns IV Solution 1 1000 ,000 ml @ 150 mls/hr IV .Q6H40M [facility] Rx#:[id number] Oral 0 Tube Feeding 0 0 IV - Manual Only 2000 NG Tube Flush 0 Right Nare 0 Output: Gastric Drainage 400 700 Right Nare 400 700 Void Amount 125 0 250 Estimated Blood Loss 150 Other: Urine Appearance Clear Cloudy Urine Color Dark Yellow Light Alissa Urine Odor Strong Exam: General: Alert, Awake, No acute Distress Eyes/N/T: EOMI, Head/Neck: neck supple, CV: mildly tachy irreg, No murmurs, Pulm: Clear b/l, no wheezing/rhonchi/rales Abd: soft, mild TTP, decreased BS x4 Ext: no clubbing/cyanosis/edema Neuro: Alert, no focal deficits, moves all extremities, Skin: warm/dry OBJ DATA Labs CBC & Chem 7: 06/11/22 05:57 06/09/22 05:24 Labs: Abnormal Lab Results 06/11/22 06/10/22 06/09/22 05:57 19:23 10:03 WBC 13.1 H MCV MCHC Plt Count 135 L Neut % (Auto) 82.6 H Lymph % (Auto) 5.9 L Gibson % (Auto) Lymph # (Auto) 0.78 L Gibson # (Auto) 1.44 H Immature Gran # Absolute Neutrophils 10.83 H PT 20.9 H INR 1.7 H POC Chloride 87 L Chloride Carbon Dioxide POC Total CO2 38.0 H Anion Gap Creatinine POC Creatinine 0.3 L Glucose POC Glucose 200 H POC WB Ioniz Calcium 1.02 L 06/09/22 06/09/22 05:24 05:24 WBC 12.1 H MCV 100.7 H MCHC 30.8 L Plt Count 110 L Neut % (Auto) Lymph % (Auto) Gibson % (Auto) 14.7 H Lymph # (Auto) Gibson # (Auto) 1.77 H Immature Gran # 0.06 H Absolute Neutrophils PT INR POC Chloride Chloride 93 L Carbon Dioxide 42 H* POC Total CO2 Anion Gap 6.0 L Creatinine 0.5 L POC Creatinine Glucose 130 H POC Glucose POC WB Ioniz Calcium Meds: Medications Dextrose (Dextrose 50% 50 Ml Vial) 0 ml IV UD PRN PRN Reason: Per Sliding Scale Diagnostic Test (Pha) (Accu-Chek 1 Each Strip) 1 each FS ACHS JP Last Admin: 06/10/22 21:08 Dose: 1 each Glucose (Dextrose 31 Gm Oral.Susp) 15 gm PO PRN PRN PRN Reason: Hypoglycemia Hydromorphone HCl (Hydromorphone 0.5 Mg/0.5 Ml Syringe) 0.5 mg IV Q2HP PRN; Protocol PRN Reason: Per Pain Protocol Last Admin: 06/11/22 06:54 Dose: 0.5 mg Acetaminophen (Ofirmev) 500 mg in 50 mls @ 100 mls/hr IV Q6HP PRN; Protocol PRN Reason: PAIN/FEVER > 101 Last Infusion: 06/11/22 00:19 Dose: Infused Potassium Chloride/Dextrose/Sod Cl (Dextrose 5%-Ns W/20meq Kcl) 1,000 mls @ 100 mls/hr IV .Q10H JP Last Admin: 06/10/22 22:16 Dose: 100 mls/hr Diltiazem HCl 125 mg/ Dextrose 125 mls @ 5 mls/hr IV Q12H JP; Protocol Last Admin: 06/11/22 02:55 Dose: 5 mg/hr, 5 mls/hr Esmolol HCl 2,500 mg/ Premix 250 mls @ 15.266 mls/hr IV .[id number] JP; Protocol Last Admin: 06/11/22 06:49 Dose: Not Given Sodium Chloride (Sodium Chloride 0.9%) 250 mls @ 20 mls/hr IV .[id number] JP Last Admin: 06/11/22 02:59 Dose: 20 mls/hr Insulin Human Lispro (Insulin Lispro 1 Unit/0.01 Ml Unit) 0 unit SQ ACHS JP; Protocol Last Admin: 06/10/22 22:06 Dose: 4 units Latanoprost (Latanoprost Ophth Drops 2.5ml Bottle) 1 gtt OU QPM JP Last Admin: 06/10/22 22:06 Dose: Not Given Metoprolol Tartrate (Metoprolol Tartrate 5 Mg/5 Ml Vial) 5 mg IV TID JP Last Admin: 06/10/22 21:46 Dose: 5 mg Metoprolol Tartrate (Metoprolol Tartrate 5 Mg/5 Ml Vial) 5 mg IV Q2HP PRN PRN Reason: Tachyarrhythmias HR>110 Last Admin: 06/11/22 00:21 Dose: 5 mg Ondansetron HCl (Ondansetron 4 Mg/2 Ml Vial) 4 mg IV Q6HP PRN PRN Reason: Nausea And Vomiting Last Admin: 06/08/22 22:37 Dose: 4 mg Sodium Chloride (0.9 % Sodium Chloride 10 Ml Syringe) 10 ml IV Q8 JP Last Admin: 06/11/22 06:49 Dose: Not Given A/P Narrative A/P Narrative: Assessment: *SBO: s/p ex-lap lysis (06/10) *chronic AFib w/RVR: on coreg/warfarin *HLD: *Met alkalosis: 2 above w/GI H+ loss *COPD: Plan: -sbo/diet/ngt per surgeon -ivf's to NS from 1/2NS given hypochloremia, awaiting f/u labs -on cardizem gtt(check echo), wean to BB -IV lopressor jp while npo and prn -Follow-up electrolytes -pt states BP always low (systolic in 90's). pt not needing to be on coreg 25mg bid anymore -once PO intake will either lower coreg dose or switch to lopressor. -pt/ot -ppx: scd Time Spent With Patient Time: Total time spent is greater than 50% in coordination of care (as documented) at patient's floor/unit and/or counseling patient: Total time spent with greater than 50% in coordination of care (as documented) at patient's floor/unit and/or counseling patient:: 35 - 50 minutes
--- NOTE | 2022-06-11 08:00 | General Surgery Progress Note ---
SUBJECTIVE Subjective Patient information: Note initiated : 06/11/22 at 7:58 am Service Date, if different from initiated Date: [] Patient: Tatyana Cordero 76 y/o F admitted on 06/07/22 for Lower Chest Pain. Chief Complaint: [] Principal diagnosis: Partial SBO, postop day #1 status post exploratory laparotomy with TAMMY Interval history: Patient is doing well overnight no complaints. Hospitalist assisting with rate control for A. fib. No nausea vomiting fevers or chills Constitutional Vitals: Vital Signs Temp Pulse Resp BP Pulse Ox O2 Del Method O2 Flow Rate 98.1 F 108 H 16 97/54 96 1 06/11/22 03:48 06/11/22 06:00 06/11/22 06:00 06/11/22 06:00 06/11/22 06:00 06/11/22 06:00 06/11/22 06:00 Period Temp Pulse Resp BP Sys/Solomon Pulse Ox O2 Del Method O2 Flow Rate Last 24 Hr 97 F-98.9 F 60-145 14-20 90-114/51-72 90-100 Nasal Cannula- Simple Mask 0-6 Intake and Output 06/10/22 06/11/22 06/11/22 21:59 05:59 13:59 Intake Total 3050 50 Output Total 675 700 250 Balance 2375 -650 -250 Weight 112 lb 3 oz Intake & Output: Intake & Output 06/10/22 06/11/22 06/11/22 21:59 05:59 13:59 Intake Total 3050 50 Output Total 675 700 250 Balance 2375 -650 -250 Weight 112 lb 3 oz Intake: IV 1050 50 Dextrose 5%-1/2Ns IV Solution 1 1000 ,000 ml @ 150 mls/hr IV .Q6H40M [facility] Rx#:[id number] Oral 0 Tube Feeding 0 0 IV - Manual Only 2000 NG Tube Flush 0 Right Nare 0 Output: Gastric Drainage 400 700 Right Nare 400 700 Void Amount 125 0 250 Estimated Blood Loss 150 Other: Urine Appearance Clear Cloudy Urine Color Dark Yellow Light Alissa Urine Odor Strong General appearance: no acute distress GI/Abdominal GI/Abdominal exam: Present normal bowel sounds, soft and tenderness; Absent distended Additional comments: Prevena wound management system in place A/P Assessment and plan (1) Small bowel obstruction: Assessment and plan: Postop day #1 status post exploratory laparotomy for bowel obstruction. Patient is doing as expected. Plan: Continue n.p.o. 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 Status: Acute Time Spent With Patient Time: Total time spent is greater than 50% in coordination of care (as documented) at patient's floor/unit and/or counseling patient:
--- NOTE | 2022-06-11 08:19 | EKG ---
[facility] Test Date: 2022-06-10 Pat Name: Tatyana Cordero Department: [facility] Room: 132 Gender: Female Keyliner: : 1945 Requested By: Ricki Grant Order Number: [id number] Reading MD: Bharathi Aguilar M.D. Measurements Intervals [place] Rate: 94 P: AK: QRS: 77 QRSD: 88 T: 53 QT: 372 QTc: 466 Interpretive Statements Atrial fibrillation Low voltage, extremity leads Electronically Signed On 06-11-2022 8:19:45 PDT by Bharathi Aguilar M.D. /[id number]/[id number]
[2022-06-11 08:37] LABS: ALT/SGPT 11 U/L (<40); AST/SGOT 14 U/L (<32); Albumin 2.7 gm/dL (3.2-5.2); Albumin/Globulin Ratio 1.2 (1.0-2.3); Alkaline Phosphatase 64 U/L (39-117); Bilirubin,Direct 0.3 mg/dL (<0.3); Bilirubin,Total 0.6 mg/dL (0.1-1.0); Blood Urea Nitrogen 10 mg/dL (8-23); Calcium 8.1 mg/dL (8.6-10.4); Carbon Dioxide 41 mmol/L (22-30); Chloride 91 mmol/L (96-108); Globulin 2.3 gm/dL (2.2-3.7); Glomerular Filtration Rate 101; Glucose 154 mg/dL (70-105); Lactate Dehydrogenase 145 U/L (135-225); Phosphorous 2.6 mg/dL (2.5-4.5); Triglycerides 57 mg/dL (<150); Uric Acid 3.7 mg/dL (2.5-8.0)
[2022-06-11] MEDS: DEXTROSE 5%-NS W/20MEQ KCL 1,000 ML IV SCH ×3 (08:50→23:14)
[2022-06-11] MEDS: INSULIN LISPRO 1 UNIT/0.01 ML UNIT SQ SCH ×4 (08:51→20:57)
[2022-06-11] MEDS: METOPROLOL TARTRATE 5 MG/5 ML VIAL IV SCH ×4 (09:04→23:14)
[2022-06-11] MEDS ORDERED: acetaZOLAMIDE SOD 500 MG VIAL IV ONE (09:08)
[2022-06-11 10:20] LABS: Carbon Dioxide 42 mmol/L (22-30)
[2022-06-11] MEDS: ACETAMINOPHEN 500 MG/50 ML BAG IV PRN ×2 (11:08→20:22)
[2022-06-11] MEDS ORDERED: ESMOLOL 2,500 MG in PREMIX 1 BAG IV PRN (15:00)
[2022-06-11] MEDS: LATANOPROST OPHTH DROPS 2.5ML BOTTLE OU SCH (20:58)
[2022-06-12] MEDS: METOPROLOL TARTRATE 5 MG/5 ML VIAL IV SCH ×4 (03:36→23:56)
[2022-06-12] MEDS: HYDROmorphone 0.5 MG/0.5 ML SYRINGE IV PRN ×3 (03:37→18:47)
[2022-06-12] MEDS: 0.9 % SODIUM CHLORIDE 10 ML SYRINGE IV SCH ×3 (05:15→23:52)
[2022-06-12 06:24] LABS: Basophils # (Auto) 0.01 K/mcL (0.00-0.30); Basophils % (Auto) 0.1 % (0.0-2.0); Eosinophils # (Auto) 0 K/mcL (0.00-0.70); Eosinophils % (Auto) 0 % (0.0-7.0); Hematocrit 35.8 % (34.1-44.9); Hemoglobin 11.3 g/dL (11.2-15.7); Lymphocytes # (Auto) 0.99 K/mcL (1.50-4.80); Lymphocytes % (Auto) 7.5 % (15.5-49.0); Mean Corpuscular HGB Conc 31.6 g/dL (31.0-36.0); Mean Platelet Volume 11.9 fL (8.8-12.5); Monocytes # (Auto) 1.85 K/mcL (0.10-0.90); Neutrophils % (Auto) 77.7 % (38.0-78.0); Platelet Count 139 K/mcL (140-440); RBC 3.58 M/mcL (3.59-5.38); Red Cell Distribution Width 13.1 % (11.5-14.5); WBC 13.2 K/mcL (4.5-11.0)
[2022-06-12] MEDS: 0.9 % SODIUM CHLORIDE 250 ML IV SCH ×2 (06:29→16:25)
[2022-06-12] MEDS: DILTIAZEM 125 MG in DEXTROSE 5% IN WATER 100 ML IV SCH (06:29)
[2022-06-12 06:55] LABS: ALT/SGPT 10 U/L (<40); AST/SGOT 11 U/L (<32); Albumin 2.4 gm/dL (3.2-5.2); Alkaline Phosphatase 67 U/L (39-117); Bilirubin,Direct 0.2 mg/dL (<0.3); Bilirubin,Total 0.6 mg/dL (0.1-1.0); Blood Urea Nitrogen 9 mg/dL (8-23); Calcium 8.1 mg/dL (8.6-10.4); Carbon Dioxide 31 mmol/L (22-30); Chloride 99 mmol/L (96-108); Globulin 2.5 gm/dL (2.2-3.7); Glomerular Filtration Rate 110; Glucose 111 mg/dL (70-105); Lactate Dehydrogenase 140 U/L (135-225); Phosphorous 1.6 mg/dL (2.5-4.5); Triglycerides 93 mg/dL (<150); Uric Acid 3.8 mg/dL (2.5-8.0)
[2022-06-12] MEDS ORDERED: DILTIAZEM 125 MG in DEXTROSE 5% IN WATER 100 ML IV PRN (07:15)
--- NOTE | 2022-06-12 07:38 | Internal Med Progress Note ---
SUBJECTIVE Subjective Patient information: Note initiated : 06/12/22 at 7:34 am Service Date, if different from initiated Date: [] Patient: Tatyana Cordero 76 y/o F admitted on 06/07/22 for Lower Chest Pain. Chief Complaint: [] Principal diagnosis: Partial SBO, postop day #1 status post exploratory laparotomy with TAMMY Interval history: Chief complaint: History of A. fib and tachycardia and n.p.o. status History of present illness: Patient presented to the hospital on the for small bowel obstruction. Patient failed to progress and required exploratory laparotomy with extensive lysis of adhesions on the second. Awaiting bowel function, patient n.p.o. and unable to take her beta-senia for A. fib. She is tachycardic today anywhere from the low 90s to the 120s reading this afternoon at 138. Patient denies symptoms. She is on Coreg 25 twice daily and she says her blood pressure is always low with systolics in the 90s rarely above 100. Explained to her she probably does not need to be on such a high dose of Coreg. And perhaps she should be switched to metoprolol. Patient had denies nausea. She has some abdominal discomfort. Otherwise feeling okay. But not having any flatus yet. 06/11 Patient had A. fib RVR last night and required diltiazem drip. But only on 5. We will wean off to IV scheduled Lopressor. Patient denies any new complaints. She is still not having bowel function. Awaiting morning labs. 06/12 Brief episode of RVR yesterday afternoon but responded to 1 dose of IV Lopressor. Heart rate 90s to low 100s. Awaiting bowel function. Acid base disturbance improving. Hypophosphatemia. Review of Systems: denies headache/fever/chills/nausea/vomiting/chest or abdominal pain/cough/d yspnea/diarrhea. Otherwise see above. Constitutional Vitals: Vital Signs Temp Pulse Resp BP Pulse Ox O2 Del Method O2 Flow Rate 97.8 F 100 H 19 103/61 97 1 06/12/22 04:00 06/12/22 06:08 06/12/22 07:19 06/12/22 07:19 06/12/22 07:19 06/12/22 07:19 06/12/22 07:19 Period Temp Pulse Resp BP Sys/Solomon Pulse Ox O2 Del Method O2 Flow Rate Last 24 Hr 97 F-98.4 F 57-112 14-26 71-116/50-74 1-98 Nasal Cannula-Nasal Cannula 1-98 Intake and Output 06/11/22 06/12/22 06/12/22 21:59 05:59 13:59 Intake Total 0 50 890 Output Total 1150 1000 Balance -1150 -950 890 Weight 50.53 kg Intake & Output: Intake & Output 06/11/22 06/12/22 06/12/22 21:59 05:59 13:59 Intake Total 0 50 890 Output Total 1150 1000 Balance -1150 -950 890 Weight 50.53 kg Intake: IV 50 890 Dextrose 5%-Ns W/20Meq KCl 1, 890 000 ml @ 100 mls/hr IV .Q10H [facility] Rx#:[id number] Oral 0 0 Tube Feeding 0 0 Output: Gastric Drainage 400 250 Right Nare 400 250 Void Amount 750 750 Exam: General: Alert, Awake, No acute Distress Eyes/N/T: EOMI, Head/Neck: neck supple, CV: mildly tachy irreg, No murmurs, Pulm: Clear b/l, no wheezing/rhonchi/rales Abd: soft, mild TTP, decreased BS x4 Ext: no clubbing/cyanosis/edema Neuro: Alert, no focal deficits, moves all extremities, Skin: warm/dry OBJ DATA Labs CBC & Chem 7: 06/12/22 05:30 06/12/22 05:30 Labs: Abnormal Lab Results 06/12/22 06/12/22 06/11/22 05:30 05:30 05:57 WBC 13.2 H RBC 3.58 L Plt Count 139 L Immature Gran % (Auto) 0.7 H Neut % (Auto) Lymph % (Auto) 7.5 L [place] % (Auto) 14.0 H Lymph # (Auto) 0.99 L [place] # (Auto) 1.85 H Immature Gran # 0.09 H Absolute Neutrophils 10.29 H PT INR POC Chloride Chloride 91 L Carbon Dioxide 31 H 41 H* POC Total CO2 Anion Gap 4.0 L 5.0 L Creatinine 0.3 L 0.4 L POC Creatinine Glucose 111 H 154 H POC Glucose Calcium 8.1 L 8.1 L POC WB Ioniz Calcium Phosphorus 1.6 L Direct Bilirubin 0.3 H GGT 38 H 41 H Total Protein 4.9 L 5.0 L Albumin 2.4 L 2.7 L 06/11/22 06/10/22 06/09/22 05:57 19:23 10:03 WBC 13.1 H RBC Plt Count 135 L Immature Gran % (Auto) Neut % (Auto) 82.6 H Lymph % (Auto) 5.9 L [place] % (Auto) Lymph # (Auto) 0.78 L [place] # (Auto) 1.44 H Immature Gran # Absolute Neutrophils 10.83 H PT 20.9 H INR 1.7 H POC Chloride 87 L Chloride Carbon Dioxide POC Total CO2 38.0 H Anion Gap Creatinine POC Creatinine 0.3 L Glucose POC Glucose 200 H Calcium POC WB Ioniz Calcium 1.02 L Phosphorus Direct Bilirubin GGT Total Protein Albumin 06/09/22 05:24 WBC RBC Plt Count Immature Gran % (Auto) Neut % (Auto) Lymph % (Auto) [place] % (Auto) Lymph # (Auto) [place] # (Auto) Immature Gran # Absolute Neutrophils PT INR POC Chloride Chloride 93 L Carbon Dioxide 42 H* POC Total CO2 Anion Gap 6.0 L Creatinine 0.5 L POC Creatinine Glucose 130 H POC Glucose Calcium POC WB Ioniz Calcium Phosphorus Direct Bilirubin GGT Total Protein Albumin Meds: Medications Dextrose (Dextrose 50% 50 Ml Vial) 0 ml IV UD PRN PRN Reason: Per Sliding Scale Diagnostic Test (Pha) (Accu-Chek 1 Each Strip) 1 each FS ACHS [facility] Last Admin: 06/11/22 20:57 Dose: Not Given Glucose (Dextrose 31 Gm Oral.Susp) 15 gm PO PRN PRN PRN Reason: Hypoglycemia Hydromorphone HCl (Hydromorphone 0.5 Mg/0.5 Ml Syringe) 0.5 mg IV Q2HP PRN; Protocol PRN Reason: Per Pain Protocol Last Admin: 06/12/22 03:37 Dose: 0.5 mg Acetaminophen (Ofirmev) 500 mg in 50 mls @ 100 mls/hr IV Q6HP PRN; Protocol PRN Reason: PAIN/FEVER > 101 Last Infusion: 06/11/22 23:14 Dose: Infused Sodium Chloride (Sodium Chloride 0.9%) 250 mls @ 20 mls/hr IV .[id number] [facility] Last Admin: 06/12/22 06:29 Dose: Not Given Potassium Chloride/Dextrose/Sod Cl (Dextrose 5%-Ns W/20meq Kcl) 1,000 mls @ 75 mls/hr IV .[id number] [facility] Last Admin: 06/11/22 23:14 Dose: 75 mls/hr Esmolol HCl 2,500 mg/ Premix 250 mls @ 15.266 mls/hr IV .[id number] PRN; Protocol PRN Reason: Hypertension Diltiazem HCl 125 mg/ Dextrose 125 mls @ 5 mls/hr IV Q12HP PRN; Protocol PRN Reason: Tachyarrhythmias Insulin Human Lispro (Insulin Lispro 1 Unit/0.01 Ml Unit) 0 unit SQ ACHS [facility]; Protocol Last Admin: 06/11/22 20:57 Dose: Not Given Latanoprost (Latanoprost Ophth Drops 2.5ml Bottle) 1 gtt OU QPM [facility] Last Admin: 06/11/22 20:58 Dose: Not Given Metoprolol Tartrate (Metoprolol Tartrate 5 Mg/5 Ml Vial) 5 mg IV Q2HP PRN PRN Reason: Tachyarrhythmias HR>110 Last Admin: 06/11/22 17:57 Dose: 5 mg Metoprolol Tartrate (Metoprolol Tartrate 5 Mg/5 Ml Vial) 5 mg IV Q6H [facility] Last Admin: 06/12/22 03:36 Dose: 5 mg Ondansetron HCl (Ondansetron 4 Mg/2 Ml Vial) 4 mg IV Q6HP PRN PRN Reason: Nausea And Vomiting Last Admin: 06/08/22 22:37 Dose: 4 mg Sodium Chloride (0.9 % Sodium Chloride 10 Ml Syringe) 10 ml IV Q8 [facility] Last Admin: 06/12/22 05:15 Dose: 10 ml A/P Narrative A/P Narrative: Assessment: *SBO: s/p ex-lap lysis (06/10) *chronic AFib w/RVR: on coreg/warfarin -echo with good EF *HLD: *Met alkalosis: 2/2 above w/GI H+ loss, improved s/p diamox after volume repletion *HypoPhosphatemia: *COPD: Plan: -sbo/diet/ngt per surgeon -NS while NPO -off cardizem gtt to IV lopressor while npo -Follow-up electrolytes -pt states BP always low (systolic in 90's to 100). pt not needing to be on coreg 25mg bid anymore -once PO intake will either lower coreg dose or switch to lopressor. -pt/ot -ppx: scd Time Spent With Patient Time: Total time spent is greater than 50% in coordination of care (as documented) at patient's floor/unit and/or counseling patient: Total time spent with greater than 50% in coordination of care (as documented) at patient's floor/unit and/or counseling patient:: 25 - 35 minutes
[2022-06-12] MEDS ORDERED: POTASSIUM PHOSPHATE 40 MEQ in DEXTROSE 5% IN WATER 500 ML IV ONE (07:39)
[2022-06-12] MEDS ORDERED: DILTIAZEM 25 MG/5 ML VIAL IV ONE (08:23)
[2022-06-12] MEDS: INSULIN LISPRO 1 UNIT/0.01 ML UNIT SQ SCH ×4 (08:46→21:16)
[2022-06-12] MEDS: ACETAMINOPHEN 500 MG/50 ML BAG IV PRN ×2 (09:33→18:46)
--- NOTE | 2022-06-12 11:59 | General Surgery Progress Note ---
SUBJECTIVE Subjective Patient information: Note initiated : 06/12/22 at 11:57 am Service Date, if different from initiated Date: [] Patient: Tatyana Cordero 76 y/o F admitted on 06/07/22 for Lower Chest Pain. Chief Complaint: [] Principal diagnosis: Partial SBO, postop day #2 status post exploratory laparotomy with TAMMY Interval history: No complaints overnight. No nausea or emesis. No flatus or bowel movement. Constitutional Vitals: Vital Signs Temp Pulse Resp BP Pulse Ox O2 Del Method O2 Flow Rate 98.3 F 100 H 18 107/66 95 1 06/12/22 08:01 06/12/22 06:08 06/12/22 08:01 06/12/22 08:01 06/12/22 08:01 06/12/22 08:01 06/12/22 08:01 Period Temp Pulse Resp BP Sys/Solomon Pulse Ox O2 Del Method O2 Flow Rate Last 24 Hr 97 F-98.4 F 100-112 16-23 71-115/50-72 1-98 Nasal Cannula- Nasal Cannula 1-98 Intake and Output 06/11/22 06/12/22 06/12/22 21:59 05:59 13:59 Intake Total 0 50 940 Output Total 1150 1000 350 Balance -1150 -950 590 Weight 111 lb 6.4 oz Intake & Output: Intake & Output 06/11/22 06/12/22 06/12/22 21:59 05:59 13:59 Intake Total 0 50 940 Output Total 1150 1000 350 Balance -1150 -950 590 Weight 111 lb 6.4 oz Intake: IV 50 940 Sodium Chloride 0.9% 250 ml @ 0 20 mls/hr IV .[id number] [facility] Rx#: [id number] Dextrose 5%-Ns W/20Meq KCl 1, 890 000 ml @ 100 mls/hr IV .Q10H [facility] Rx#:[id number] Cardizem 125 mg In Dextrose 5% 0 in Water 100 ml @ 5 MG/HR 5 mls /hr IV Q12H [facility] Rx#:[id number] Oral 0 0 Tube Feeding 0 0 0 Output: Gastric Drainage 400 250 Right Nare 400 250 Void Amount 750 750 350 Other: Urine Appearance Cloudy Urine Color Bright Yellow Urine Odor Normal General appearance: no acute distress GI/Abdominal GI/Abdominal exam: Present normal bowel sounds, soft and tenderness; Absent distended Additional comments: Prevena wound management system in place A/P Assessment and plan (1) Small bowel obstruction: Plan: Postop day #2 status post exploratory laparotomy. We will clamp NG tube today, sips and ice chips. Continue to ambulate. A. fib per hospitalist. Status: Acute Time Spent With Patient Time: Total time spent is greater than 50% in coordination of care (as documented) at patient's floor/unit and/or counseling patient:
[2022-06-12] MEDS: DEXTROSE 5%-NS W/20MEQ KCL 1,000 ML IV SCH (17:26)
[2022-06-12] MEDS: LATANOPROST OPHTH DROPS 2.5ML BOTTLE OU SCH (23:51)
[2022-06-13] MEDS: ACETAMINOPHEN 500 MG/50 ML BAG IV PRN (02:39)
[2022-06-13] MEDS: METOPROLOL TARTRATE 5 MG/5 ML VIAL IV SCH ×4 (06:25→20:15)
[2022-06-13] MEDS: DEXTROSE 5%-NS W/20MEQ KCL 1,000 ML IV SCH (06:27)
[2022-06-13] MEDS: 0.9 % SODIUM CHLORIDE 250 ML IV SCH (06:47)
[2022-06-13] MEDS: INSULIN LISPRO 1 UNIT/0.01 ML UNIT SQ SCH ×4 (07:01→20:20)
[2022-06-13] MEDS: 0.9 % SODIUM CHLORIDE 10 ML SYRINGE IV SCH ×3 (07:01→20:20)
--- NOTE | 2022-06-13 07:33 | Internal Med Progress Note ---
SUBJECTIVE Subjective Patient information: Note initiated : 06/13/22 at 7:32 am Service Date, if different from initiated Date: [] Patient: Tatyana Cordero 76 y/o F admitted on 06/07/22 for Lower Chest Pain. Chief Complaint: [] Principal diagnosis: Partial SBO, postop day #2 status post exploratory laparotomy with TAMMY Interval history: Chief complaint: History of A. fib and tachycardia and n.p.o. status History of present illness: Patient presented to the hospital on the for small bowel obstruction. Patient failed to progress and required exploratory laparotomy with extensive lysis of adhesions on the second. Awaiting bowel function, patient n.p.o. and unable to take her beta-senia for A. fib. She is tachycardic today anywhere from the low 90s to the 120s reading this afternoon at 138. Patient denies symptoms. She is on Coreg 25 twice daily and she says her blood pressure is always low with systolics in the 90s rarely above 100. Explained to her she probably does not need to be on such a high dose of Coreg. And perhaps she should be switched to metoprolol. Patient had denies nausea. She has some abdominal discomfort. Otherwise feeling okay. But not having any flatus yet. 06/11 Patient had A. fib RVR last night and required diltiazem drip. But only on . We will wean off to IV scheduled Lopressor. Patient denies any new complaints. She is still not having bowel function. Awaiting morning labs. 06/12 Brief episode of RVR yesterday afternoon but responded to 1 dose of IV Lopressor. Heart rate 90s to low 100s. Awaiting bowel function. Acid base disturbance improving. Hypophosphatemia. 06/13 Patient feeling a little better. She says she started to have little bit of gas. Leukocytosis resolved. Anemia. Heart rate little better today did require some diltiazem yesterday afternoon. Alkalosis improved. Hypophosphatemia. Review of Systems: denies headache/fever/chills/nausea/vomiting/chest or abdominal pain/cough/dyspnea/diarrhea. Otherwise see above. Constitutional Vitals: Vital Signs Temp Pulse Resp BP Pulse Ox O2 Del Method O2 Flow Rate 98.8 F 118 H 16 111/58 88 L 2 06/13/22 06:11 06/13/22 06:11 06/13/22 04:00 06/13/22 06:11 06/13/22 06:11 06/13/22 04:00 06/13/22 00:00 Period Temp Pulse Resp BP Sys/Solomon Pulse Ox O2 Del Method O2 Flow Rate Last 24 Hr 97.7 F-98.8 F 91-118 16-20 93-111/49-74 88-97 Nasal Cannula- Room Air 1-2 Intake and Output 06/12/22 06/13/22 06/13/22 21:59 05:59 13:59 Intake Total 291 54 1009 Output Total 900 325 300 Balance -589 -275 726 Weight 50.439 kg Intake & Output: Intake & Output 06/12/22 06/13/22 06/13/22 21:59 05:59 13:59 Intake Total 659 38 5585 Output Total 900 325 300 Balance -589 -275 726 Weight 50.439 kg Intake: IV 311 1026 Dextrose 5%-Ns W/20Meq KCl 1, 261 976 000 ml @ 75 mls/hr IV .[id number] [facility] Rx#:[id number] Oral 50 Tube Feeding 0 0 0 Output: Void Amount 900 325 300 Other: Urine Appearance Cloudy Clear Clear Urine Color Bright Yellow Yellow Bright Yellow Urine Odor Normal Normal Normal Exam: General: Alert, Awake, No acute Distress Eyes/N/T: EOMI, Head/Neck: neck supple, CV: mildly tachy irreg, No murmurs, Pulm: Clear b/l, no wheezing/rhonchi/rales Abd: soft, mild TTP, decreased BS x4 Ext: no clubbing/cyanosis/edema Neuro: Alert, no focal deficits, moves all extremities, Skin: warm/dry OBJ DATA Labs CBC & Chem 7: 06/13/22 06:05 06/13/22 06:05 Labs: Abnormal Lab Results 06/12/22 06/12/22 06/11/22 05:30 05:30 05:57 WBC 13.2 H RBC 3.58 L Plt Count 139 L Immature Gran % (Auto) 0.7 H Neut % (Auto) Lymph % (Auto) 7.5 L [place] % (Auto) 14.0 H Lymph # (Auto) 0.99 L [place] # (Auto) 1.85 H Immature Gran # 0.09 H Absolute Neutrophils 10.29 H POC Chloride Chloride 91 L Carbon Dioxide 31 H 41 H* POC Total CO2 Anion Gap 4.0 L 5.0 L Creatinine 0.3 L 0.4 L POC Creatinine Glucose 111 H 154 H POC Glucose Calcium 8.1 L 8.1 L POC WB Ioniz Calcium Phosphorus 1.6 L Direct Bilirubin 0.3 H GGT 38 H 41 H Total Protein 4.9 L 5.0 L Albumin 2.4 L 2.7 L 06/11/22 06/10/22 06/09/22 05:57 19:23 05:24 WBC 13.1 H RBC Plt Count 135 L Immature Gran % (Auto) Neut % (Auto) 82.6 H Lymph % (Auto) 5.9 L [place] % (Auto) Lymph # (Auto) 0.78 L [place] # (Auto) 1.44 H Immature Gran # Absolute Neutrophils 10.83 H POC Chloride 87 L Chloride Carbon Dioxide 42 H* POC Total CO2 38.0 H Anion Gap Creatinine POC Creatinine 0.3 L Glucose POC Glucose 200 H Calcium POC WB Ioniz Calcium 1.02 L Phosphorus Direct Bilirubin GGT Total Protein Albumin Meds: Medications Dextrose (Dextrose 50% 50 Ml Vial) 0 ml IV UD PRN PRN Reason: Per Sliding Scale Diagnostic Test (Pha) (Accu-Chek 1 Each Strip) 1 each FS BIDAC [facility] Last Admin: 06/13/22 07:01 Dose: 1 each Glucose (Dextrose 31 Gm Oral.Susp) 15 gm PO PRN PRN PRN Reason: Hypoglycemia Hydromorphone HCl (Hydromorphone 0.5 Mg/0.5 Ml Syringe) 0.5 mg IV Q2HP PRN; Protocol PRN Reason: Per Pain Protocol Last Admin: 06/12/22 18:47 Dose: 0.5 mg Acetaminophen (Ofirmev) 500 mg in 50 mls @ 100 mls/hr IV Q6HP PRN; Protocol PRN Reason: PAIN/FEVER > 101 Last Infusion: 06/13/22 06:27 Dose: Infused Sodium Chloride (Sodium Chloride 0.9%) 250 mls @ 20 mls/hr IV .[id number] [facility] Last Admin: 06/13/22 06:47 Dose: Not Given Potassium Chloride/Dextrose/Sod Cl (Dextrose 5%-Ns W/20meq Kcl) 1,000 mls @ 75 mls/hr IV .[id number] [facility] Last Admin: 06/13/22 06:27 Dose: 75 mls/hr Esmolol HCl 2,500 mg/ Premix 250 mls @ 15.266 mls/hr IV .[id number] PRN; Protocol PRN Reason: Hypertension Diltiazem HCl 125 mg/ Dextrose 125 mls @ 5 mls/hr IV Q12HP PRN; Protocol PRN Reason: Tachyarrhythmias Insulin Human Lispro (Insulin Lispro 1 Unit/0.01 Ml Unit) 0 unit SQ ACHS [facility]; Protocol Last Admin: 06/13/22 07:01 Dose: Not Given Latanoprost (Latanoprost Ophth Drops 2.5ml Bottle) 1 gtt OU QPM [facility] Last Admin: 06/12/22 23:51 Dose: Not Given Metoprolol Tartrate (Metoprolol Tartrate 5 Mg/5 Ml Vial) 5 mg IV Q2HP PRN PRN Reason: Tachyarrhythmias HR>110 Last Admin: 06/11/22 17:57 Dose: 5 mg Metoprolol Tartrate (Metoprolol Tartrate 5 Mg/5 Ml Vial) 5 mg IV Q6H [facility] Last Admin: 06/13/22 06:25 Dose: 5 mg Ondansetron HCl (Ondansetron 4 Mg/2 Ml Vial) 4 mg IV Q6HP PRN PRN Reason: Nausea And Vomiting Last Admin: 06/08/22 22:37 Dose: 4 mg Sodium Chloride (0.9 % Sodium Chloride 10 Ml Syringe) 10 ml IV Q8 [facility] Last Admin: 06/13/22 07:01 Dose: Not Given A/P Narrative A/P Narrative: Assessment: *SBO: s/p ex-lap lysis (06/10) *chronic AFib w/RVR: on coreg/warfarin -echo with good EF *HLD: *Met alkalosis: 2/2 above w/GI H+ loss, improved s/p diamox after volume repletion *HypoPhosphatemia: *COPD: Plan: -sbo/diet/ngt per surgeon -NS while NPO or poor oral intake -off cardizem gtt to IV lopressor while npo -Follow-up electrolytes -pt states BP always low (systolic in 90's to 100). pt not needing to be on coreg 25mg bid anymore -once PO intake will either lower coreg dose or switch to lopressor. -pt/ot -ppx: scd Time Spent With Patient Time: Total time spent is greater than 50% in coordination of care (as documented) at patient's floor/unit and/or counseling patient: Total time spent with greater than 50% in coordination of care (as documented) at patient's floor/unit and/or counseling patient:: 25 - 35 minutes
[2022-06-13] MEDS ORDERED: DILTIAZEM 25 MG/5 ML VIAL IV PRN (07:34)
[2022-06-13 07:51] LABS: Basophils # (Auto) 0.01 K/mcL (0.00-0.30); Basophils % (Auto) 0.1 % (0.0-2.0); Eosinophils # (Auto) 0.06 K/mcL (0.00-0.70); Eosinophils % (Auto) 0.7 % (0.0-7.0); Hematocrit 34.7 % (34.1-44.9); Hemoglobin 10.7 g/dL (11.2-15.7); Lymphocytes # (Auto) 1.43 K/mcL (1.50-4.80); Lymphocytes % (Auto) 15.6 % (15.5-49.0); Mean Cell Volume 102.7 fL (80.0-100.0); Mean Corpuscular HGB Conc 30.8 g/dL (31.0-36.0); Mean Platelet Volume 11.7 fL (8.8-12.5); Monocytes # (Auto) 1.26 K/mcL (0.10-0.90); Monocytes % (Auto) 13.8 % (1.0-12.0); Neutrophils % (Auto) 69.3 % (38.0-78.0); Platelet Count 148 K/mcL (140-440); RBC 3.38 M/mcL (3.59-5.38); Red Cell Distribution Width 13.4 % (11.5-14.5); WBC 9.1 K/mcL (4.5-11.0)
[2022-06-13 08:42] LABS: ALT/SGPT 12 U/L (<40); AST/SGOT 16 U/L (<32); Albumin 2.5 gm/dL (3.2-5.2); Albumin/Globulin Ratio 1.1 (1.0-2.3); Alkaline Phosphatase 83 U/L (39-117); Bilirubin,Direct < 0.2 mg/dL (0-0.3); Bilirubin,Total 0.6 mg/dL (0.1-1.0); Blood Urea Nitrogen 7 mg/dL (8-23); Calcium 8.3 mg/dL (8.6-10.4); Carbon Dioxide 25 mmol/L (22-30); Chloride 105 mmol/L (96-108); Globulin 2.3 gm/dL (2.2-3.7); Glomerular Filtration Rate 110; Glucose 99 mg/dL (70-105); Lactate Dehydrogenase 214 U/L (135-225); Phosphorous 1.4 mg/dL (2.5-4.5); Triglycerides 102 mg/dL (<150); Uric Acid 3.6 mg/dL (2.5-8.0)
[2022-06-13] MEDS ORDERED: POTASSIUM PHOSPHATE 40 MEQ in DEXTROSE 5% IN WATER 500 ML IV ONE (08:59)
[2022-06-13] MEDS ORDERED: PHOSPHORUS 250 MG TABLET PO ONE (08:59)
[2022-06-13] MEDS: 0.45 % SODIUM CHLORIDE 1,000 ML IV SCH (10:12)
[2022-06-13] MEDS: HYDROmorphone 0.5 MG/0.5 ML SYRINGE IV PRN ×3 (11:56→23:06)
--- NOTE | 2022-06-13 12:44 | General Surgery Progress Note ---
SUBJECTIVE Subjective Patient information: Note initiated : 06/13/22 at 12:42 pm Service Date, if different from initiated Date: [] Patient: Tatyana Cordero 76 y/o F admitted on 06/07/22 for Lower Chest Pain. Chief Complaint: [] Principal diagnosis: Partial SBO, postop day #3 status post exploratory laparotomy with TAMMY Interval history: No complaints overnight. No nausea vomiting with NG tube clamped, she reports some flatus. Constitutional Vitals: Vital Signs Temp Pulse Resp BP Pulse Ox O2 Del Method O2 Flow Rate 98.3 F 81 17 108/66 94 1 06/13/22 12:02 06/13/22 12:02 06/13/22 12:02 06/13/22 12:02 06/13/22 12:02 06/13/22 12:02 06/13/22 12:02 Period Temp Pulse Resp BP Sys/Solomon Pulse Ox O2 Del Method O2 Flow Rate Last 24 Hr 98 F-98.8 F 81-118 16-20 93-111/49-74 88-97 Nasal Cannula-Room Air 1-2 Intake and Output 06/12/22 06/13/22 06/13/22 21:59 05:59 13:59 Intake Total 963 88 5993 Output Total 900 325 550 Balance -589 -275 476 Weight 111 lb 3.2 oz Intake & Output: Intake & Output 06/12/22 06/13/22 06/13/22 21:59 05:59 13:59 Intake Total 273 85 8092 Output Total 900 325 550 Balance -589 -275 476 Weight 111 lb 3.2 oz Intake: IV 311 1026 Dextrose 5%-Ns W/20Meq KCl 1, 261 976 000 ml @ 75 mls/hr IV .[id number] [facility] Rx#:[id number] Oral 50 Tube Feeding 0 0 0 Output: Void Amount 900 325 550 Other: Urine Appearance Cloudy Clear Clear Urine Color Bright Yellow Yellow Bright Yellow Urine Odor Normal Normal Normal General appearance: cooperative and no acute distress GI/Abdominal GI/Abdominal exam: Present soft; Absent distended Additional comments: Incision intact with Prevena wound care dressing, no evidence of infection, no cellulitis A/P Assessment and plan (1) Small bowel obstruction: Plan: Slowly improving. DC NG tube, clear liquid diet. Status: Acute Time Spent With Patient Time: Total time spent is greater than 50% in coordination of care (as documented) at patient's floor/unit and/or counseling patient:
--- NOTE | 2022-06-13 13:16 | Internal Med Progress Note ---
SUBJECTIVE Subjective Patient information: Note initiated : 06/13/22 at 1:13 pm Service Date, if different from initiated Date: [] Patient: Tatyana Cordero 76 y/o F admitted on 06/07/22 for Lower Chest Pain. Chief Complaint: [] Principal diagnosis: Partial SBO, postop day #3 status post exploratory laparotomy with TAMMY Interval history: Chief complaint: History of A. fib and tachycardia and n.p.o. status History of present illness: Patient presented to the hospital on the for small bowel obstruction. Patient failed to progress and required exploratory laparotomy with extensive lysis of adhesions on the second. Awaiting bowel function, patient n.p.o. and unable to take her beta-senia for A. fib. She is tachycardic today anywhere from the low 90s to the 120s reading this afternoon at 138. Patient denies symptoms. She is on Coreg 25 twice daily and she says her blood pressure is always low with systolics in the 90s rarely above 100. Explained to her she probably does not need to be on such a high dose of Coreg. And perhaps she should be switched to metoprolol. Patient had denies nausea. She has some abdominal discomfort. Otherwise feeling okay. But not having any flatus yet. 06/11 Patient had A. fib RVR last night and required diltiazem drip. But only on . We will wean off to IV scheduled Lopressor. Patient denies any new complaints. She is still not having bowel function. Awaiting morning labs. 06/12 Brief episode of RVR yesterday afternoon but responded to 1 dose of IV Lopressor. Heart rate 90s to low 100s. Awaiting bowel function. Acid base disturbance improving. Hypophosphatemia. 06/13 Patient feeling a little better. She says she started to have little bit of gas. Leukocytosis resolved. Anemia. Heart rate little better today did require some diltiazem yesterday afternoon. Alkalosis improved. Hypophosphatemia. 06/14 Started on a full liquid diet, started Lopressor 50 mg twice daily, continue Lopressor IV as needed. Discontinued scheduled Cardizem IV and Lopressor IV. Magnesium IV given for magnesium level of 1.5. Physical exam Head: Atraumatic, normal inspection. Eyes: normal appearance, no scleral icterus. Neck: full ROM Respiratory: no respiratory distress. Cardiovascular: normal rate and rhythm, S1, S2. GI/Abdominal: Nasogastric tube clamped, laparotomy incision covered with wound VAC, nontender, no guarding. Extremities: full range of motion, nontender. Neurological: CN II-XII intact, intact motor, intact sensation. Psychiatric: normal mood. Skin: warm, normal color Constitutional Vitals: Vital Signs Temp Pulse Resp BP Pulse Ox O2 Del Method O2 Flow Rate 98.3 F 81 17 108/66 94 1 06/13/22 12:02 06/13/22 12:02 06/13/22 12:02 06/13/22 12:02 06/13/22 12:02 06/13/22 12:02 06/13/22 12:02 Period Temp Pulse Resp BP Sys/Solomon Pulse Ox O2 Del Method O2 Flow Rate Last 24 Hr 98 F-98.8 F 81-118 16-20 93-111/49-74 88-97 Nasal Cannula-Room Air 1-2 Intake and Output 06/12/22 06/13/22 06/13/22 21:59 05:59 13:59 Intake Total 776 89 7759 Output Total 900 325 550 Balance -589 -275 476 Weight 50.439 kg Intake & Output: Intake & Output 06/12/22 06/13/22 06/13/22 21:59 05:59 13:59 Intake Total 912 93 1267 Output Total 900 325 550 Balance -589 -275 476 Weight 50.439 kg Intake: IV 311 1026 Dextrose 5%-Ns W/20Meq KCl 1, 261 976 000 ml @ 75 mls/hr IV .[id number] [facility] Rx#:[id number] Oral 50 Tube Feeding 0 0 0 Output: Void Amount 900 325 550 Other: Urine Appearance Cloudy Clear Clear Urine Color Bright Yellow Yellow Bright Yellow Urine Odor Normal Normal Normal OBJ DATA Labs CBC & Chem 7: 06/13/22 06:05 06/14/22 05:50 Labs: Abnormal Lab Results 06/13/22 06/13/22 06/12/22 06:05 06:05 05:30 WBC 13.2 H RBC 3.38 L 3.58 L Hgb 10.7 L MCV 102.7 H MCHC 30.8 L Plt Count 139 L Immature Gran % (Auto) 0.7 H Neut % (Auto) Lymph % (Auto) 7.5 L [place] % (Auto) 13.8 H 14.0 H Lymph # (Auto) 1.43 L 0.99 L [place] # (Auto) 1.26 H 1.85 H Immature Gran # 0.09 H Absolute Neutrophils 10.29 H POC Chloride Chloride Carbon Dioxide POC Total CO2 Anion Gap BUN 7 L Creatinine 0.3 L POC Creatinine Glucose POC Glucose Calcium 8.3 L POC WB Ioniz Calcium Phosphorus 1.4 L Direct Bilirubin GGT 49 H Total Protein 4.8 L Albumin 2.5 L 06/12/22 06/11/22 06/11/22 05:30 05:57 05:57 WBC 13.1 H RBC Hgb MCV MCHC Plt Count 135 L Immature Gran % (Auto) Neut % (Auto) 82.6 H Lymph % (Auto) 5.9 L [place] % (Auto) Lymph # (Auto) 0.78 L [place] # (Auto) 1.44 H Immature Gran # Absolute Neutrophils 10.83 H POC Chloride Chloride 91 L Carbon Dioxide 31 H 41 H* POC Total CO2 Anion Gap 4.0 L 5.0 L BUN Creatinine 0.3 L 0.4 L POC Creatinine Glucose 111 H 154 H POC Glucose Calcium 8.1 L 8.1 L POC WB Ioniz Calcium Phosphorus 1.6 L Direct Bilirubin 0.3 H GGT 38 H 41 H Total Protein 4.9 L 5.0 L Albumin 2.4 L 2.7 L 06/10/22 06/09/22 19:23 05:24 WBC RBC Hgb MCV MCHC Plt Count Immature Gran % (Auto) Neut % (Auto) Lymph % (Auto) [place] % (Auto) Lymph # (Auto) [place] # (Auto) Immature Gran # Absolute Neutrophils POC Chloride 87 L Chloride Carbon Dioxide 42 H* POC Total CO2 38.0 H Anion Gap BUN Creatinine POC Creatinine 0.3 L Glucose POC Glucose 200 H Calcium POC WB Ioniz Calcium 1.02 L Phosphorus Direct Bilirubin GGT Total Protein Albumin Meds: Medications Dextrose (Dextrose 50% 50 Ml Vial) 0 ml IV UD PRN PRN Reason: Per Sliding Scale Diagnostic Test (Pha) (Accu-Chek 1 Each Strip) 1 each FS [facility]AC [facility] Last Admin: 06/13/22 11:56 Dose: 1 each Diltiazem HCl (Diltiazem 25 Mg/5 Ml Vial) 10 mg IV Q4HP PRN PRN Reason: HR>110 Glucose (Dextrose 31 Gm Oral.Susp) 15 gm PO PRN PRN PRN Reason: Hypoglycemia Hydromorphone HCl (Hydromorphone 0.5 Mg/0.5 Ml Syringe) 0.5 mg IV Q2HP PRN; Protocol PRN Reason: Per Pain Protocol Last Admin: 06/13/22 11:56 Dose: 0.5 mg Acetaminophen (Ofirmev) 500 mg in 50 mls @ 100 mls/hr IV Q6HP PRN; Protocol PRN Reason: PAIN/FEVER > 101 Last Infusion: 06/13/22 06:27 Dose: Infused Esmolol HCl 2,500 mg/ Premix 250 mls @ 15.266 mls/hr IV .[id number] PRN; Protocol PRN Reason: Hypertension Diltiazem HCl 125 mg/ Dextrose 125 mls @ 5 mls/hr IV Q12HP PRN; Protocol PRN Reason: Tachyarrhythmias Sodium Chloride (Sodium Chloride 0.45%) 1,000 mls @ 75 mls/hr IV .[id number] [facility] Last Admin: 06/13/22 10:12 Dose: 75 mls/hr Insulin Human Lispro (Insulin Lispro 1 Unit/0.01 Ml Unit) 0 unit SQ ACHS [facility]; Protocol Last Admin: 06/13/22 11:57 Dose: Not Given Latanoprost (Latanoprost Ophth Drops 2.5ml Bottle) 1 gtt OU QPM [facility] Last Admin: 06/12/22 23:51 Dose: Not Given Metoprolol Tartrate (Metoprolol Tartrate 5 Mg/5 Ml Vial) 5 mg IV Q2HP PRN PRN Reason: Tachyarrhythmias HR>110 Last Admin: 06/11/22 17:57 Dose: 5 mg Metoprolol Tartrate (Metoprolol Tartrate 5 Mg/5 Ml Vial) 5 mg IV Q6H [facility] Last Admin: 06/13/22 11:02 Dose: 5 mg Ondansetron HCl (Ondansetron 4 Mg/2 Ml Vial) 4 mg IV Q6HP PRN PRN Reason: Nausea And Vomiting Last Admin: 06/08/22 22:37 Dose: 4 mg Sodium Chloride (0.9 % Sodium Chloride 10 Ml Syringe) 10 ml IV Q8 [facility] Last Admin: 06/13/22 07:01 Dose: Not Given A/P Narrative A/P Narrative: Assessment: 76-year-old female admitted for a small bowel obstruction requiring exploratory laparotomy with extensive lysis of adhesions. Postoperatively the patient developed atrial fibrillation with rapid ventricular response, hospital medicine was consulted for medical management. *SBO: s/p ex-lap lysis (06/10) *Hypoxia *chronic AFib w/RVR: on coreg/warfarin -echo with good EF *HLD: *COPD: Plan: -Diet per surgeon, currently clear liquid. -Start Lopressor 50 mg twice daily, continue Lopressor IV as needed for tachycardia. -Discontinue Cardizem IV. -Continue to monitor on telemetry. -Continue IV fluid for now. -Oxygen supplementation, monitor respiratory status. -Replace electrolytes as needed. -pt states BP always low (systolic in 90's to 100). pt not needing to be on co reg 25mg bid anymore -pt/ot -ppx: scd Time Spent With Patient Time: Total time spent is greater than 50% in coordination of care (as documented) at patient's floor/unit and/or counseling patient:
[2022-06-13] MEDS: LATANOPROST OPHTH DROPS 2.5ML BOTTLE OU SCH (20:26)
[2022-06-13] MEDS: MELATONIN 3 MG TABLET PO PRN (20:44)
[2022-06-13] MEDS ORDERED: MELATONIN 3 MG TABLET PO ONE (20:53)
[2022-06-14] MEDS: 0.45 % SODIUM CHLORIDE 1,000 ML IV SCH ×2 (03:32→15:40)
[2022-06-14] MEDS: METOPROLOL TARTRATE 5 MG/5 ML VIAL IV SCH ×2 (03:36→10:30)
[2022-06-14] MEDS: 0.9 % SODIUM CHLORIDE 10 ML SYRINGE IV SCH ×3 (05:24→20:49)
[2022-06-14] MEDS: INSULIN LISPRO 1 UNIT/0.01 ML UNIT SQ SCH ×4 (07:25→20:49)
[2022-06-14 07:58] LABS: ALT/SGPT 13 U/L (<40); AST/SGOT 18 U/L (<32); Albumin 2.6 gm/dL (3.2-5.2); Albumin/Globulin Ratio 1.2 (1.0-2.3); Alkaline Phosphatase 105 U/L (39-117); Bilirubin,Direct 0.3 mg/dL (<0.3); Bilirubin,Total 0.7 mg/dL (0.1-1.0); Blood Urea Nitrogen 6 mg/dL (8-23); Calcium 8.5 mg/dL (8.6-10.4); Carbon Dioxide 30 mmol/L (22-30); Chloride 103 mmol/L (96-108); Globulin 2.2 gm/dL (2.2-3.7); Glomerular Filtration Rate 126; Glucose 89 mg/dL (70-105); Lactate Dehydrogenase 162 U/L (135-225); Phosphorous 2.8 mg/dL (2.5-4.5); Triglycerides 84 mg/dL (<150); Uric Acid 2.9 mg/dL (2.5-8.0)
[2022-06-14] MEDS: ONDANSETRON 4 MG/2 ML VIAL IV PRN (09:51)
[2022-06-14] MEDS ORDERED: MAGNESIUM SULFATE 2 GM/50 ML BAG IV SCH (10:30)
[2022-06-14] MEDS: LACTATED RINGERS 1,000 ML IV SCH (13:47)
[2022-06-14] MEDS: METOPROLOL TARTRATE 5 MG/5 ML VIAL IV PRN (14:18)
--- NOTE | 2022-06-14 14:35 | General Surgery Progress Note ---
SUBJECTIVE Subjective Patient information: Note initiated : 06/14/22 at 2:34 pm Service Date, if different from initiated Date: [] Patient: Tatyana Cordero 76 y/o F admitted on 06/07/22 for Lower Chest Pain. Chief Complaint: [] Principal diagnosis: Partial SBO, postop day #4 status post exploratory laparotomy with TAMMY Interval history: Tolerated NG tube clamped last night, tolerated clear liquid diet no fevers chills nausea or vomiting. Constitutional Vitals: Vital Signs Temp Pulse Resp BP Pulse Ox O2 Del Method O2 Flow Rate 98.0 F 103 H 22 104/53 97 1.5 06/14/22 12:00 06/14/22 12:00 06/14/22 12:00 06/14/22 12:00 06/14/22 12:00 06/14/22 12:00 06/14/22 12:00 Period Temp Pulse Resp BP Sys/Solomon Pulse Ox O2 Del Method O2 Flow Rate Last 24 Hr 97 F-99.0 F 65-113 18-24 100-113/53-73 94-97 Nasal Cannula- Nasal Cannula 1-1.5 Intake and Output 06/14/22 06/14/22 06/14/22 05:59 13:59 21:59 Intake Total 1100 1509.0909 Output Total 700 250 Balance 400 1259.0909 Intake & Output: Intake & Output 06/14/22 06/14/22 06/14/22 05:59 13:59 21:59 Intake Total 1100 1509.0909 Output Total 700 250 Balance 400 1259.0909 Intake: IV 1000 1509.0909 Sodium Chloride 0.45% 1,000 ml 1000 @ 75 mls/hr IV .[id number] [facility] Rx# :[id number] Dextrose 5%-Ns W/20Meq KCl 1, 1000 000 ml @ 75 mls/hr IV .[id number] [facility] Rx#:[id number] Potassium Phosphate 40 Meq In 509.0909 Dextrose 5% in Water 500 ml @ 127.273 mls/hr IV ONCE ONE Rx#: [id number] Oral 100 Output: Void Amount 700 250 Other: Urine Appearance Clear Urine Color Yellow Bright Yellow Urine Odor Normal General appearance: cooperative and no acute distress GI/Abdominal GI/Abdominal exam: Present soft; Absent distended Additional comments: Incision intact with Prevena wound care dressing, no evidence of infection, no cellulitis A/P Assessment and plan (1) Small bowel obstruction: Plan: Tolerated clear liquid diet with no nausea or emesis. Positive flatus, no bowel movement at this time. Continue with clear liquid diet, encourage ambulation. Will resume home medications. Status: Acute Time Spent With Patient Time: Total time spent is greater than 50% in coordination of care (as documented) at patient's floor/unit and/or counseling patient:
[2022-06-14] MEDS: WARFARIN 5 MG TABLET PO SCH (15:19)
[2022-06-14] MEDS: HYDROmorphone 0.5 MG/0.5 ML SYRINGE IV PRN ×2 (15:19→23:28)
[2022-06-14] MEDS: ACETAMINOPHEN 500 MG/50 ML BAG IV PRN (17:17)
[2022-06-14] MEDS: MELATONIN 3 MG TABLET PO PRN (20:45)
[2022-06-14] MEDS: METOPROLOL TARTRATE 50 MG TABLET PO SCH (20:45)
[2022-06-14] MEDS ORDERED: CARVEDILOL 12.5 MG TABLET PO SCH (21:00)
[2022-06-14] MEDS: LATANOPROST OPHTH DROPS 2.5ML BOTTLE OU SCH (22:00)
[2022-06-15] MEDS: HYDROmorphone 0.5 MG/0.5 ML SYRINGE IV PRN ×2 (02:48→10:57)
[2022-06-15] MEDS: 0.9 % SODIUM CHLORIDE 10 ML SYRINGE IV SCH ×3 (05:11→20:47)
[2022-06-15] MEDS: INSULIN LISPRO 1 UNIT/0.01 ML UNIT SQ SCH ×4 (07:11→20:46)
[2022-06-15 08:15] LABS: Basophils # (Auto) 0.05 K/mcL (0.00-0.30); Basophils % (Auto) 0.7 % (0.0-2.0); Eosinophils # (Auto) 0.27 K/mcL (0.00-0.70); Eosinophils % (Auto) 3.6 % (0.0-7.0); Hematocrit 33.9 % (34.1-44.9); Hemoglobin 10.5 g/dL (11.2-15.7); Lymphocytes # (Auto) 1.47 K/mcL (1.50-4.80); Lymphocytes % (Auto) 19.6 % (15.5-49.0); Mean Cell Volume 100.3 fL (80.0-100.0); Mean Platelet Volume 11.3 fL (8.8-12.5); Monocytes # (Auto) 1.11 K/mcL (0.10-0.90); Monocytes % (Auto) 14.8 % (1.0-12.0); Neutrophils % (Auto) 60.6 % (38.0-78.0); Platelet Count 176 K/mcL (140-440); RBC 3.38 M/mcL (3.59-5.38); Red Cell Distribution Width 13.3 % (11.5-14.5); WBC 7.5 K/mcL (4.5-11.0)
--- NOTE | 2022-06-15 08:37 | General Surgery Progress Note ---
SUBJECTIVE Subjective Patient information: Note initiated : 06/15/22 at 8:36 am Service Date, if different from initiated Date: [] Patient: Tatyana Cordero 76 y/o F admitted on 06/07/22 for Lower Chest Pain. Chief Complaint: [] Principal diagnosis: Partial SBO, postop day #5 status post exploratory laparotomy with TAMMY Interval history: Patient continues to pass flatus overnight, tolerated liquid diet with no nausea or emesis. No bowel movements at this time. Patient had a coughing fit this morning and has some left lower quadrant pain otherwise no significant changes. Constitutional Vitals: Vital Signs Temp Pulse Resp BP Pulse Ox O2 Del Method O2 Flow Rate 98.5 F 96 H 18 101/61 94 1.5 06/15/22 08:16 06/15/22 08:16 06/15/22 08:16 06/15/22 08:16 06/15/22 08:16 06/15/22 08:16 06/15/22 08:16 Period Temp Pulse Resp BP Sys/Solomon Pulse Ox O2 Del Method O2 Flow Rate Last 24 Hr 97.9 F-98.6 F 94-122 - 91-104/53-61 92-97 Nasal Cannula- Nasal Cannula 1-1.5 Intake and Output 06/14/22 06/15/22 06/15/22 21:59 05:59 13:59 Intake Total 700 200 200 Output Total 300 650 Balance 400 -450 200 Weight 117 lb 1.7 oz Intake & Output: Intake & Output 06/14/22 06/15/22 06/15/22 21:59 05:59 13:59 Intake Total 700 200 200 Output Total 300 650 Balance 400 -450 200 Weight 117 lb 1.7 oz Intake: IV 700 Sodium Chloride 0.45% 1,000 ml 600 @ 75 mls/hr IV .[id number] [facility] Rx# :[id number] Oral 200 200 Output: Void Amount 300 650 Other: Meal Breakfast Percent of Meal Consumed 50% Urine Appearance Clear Clear Clear Urine Color Yellow Yellow Yellow Urine Odor Normal Normal Normal General appearance: cooperative and no acute distress GI/Abdominal GI/Abdominal exam: Present soft; Absent distended Additional comments: Incision intact with Prevena wound care dressing, no evidence of infection, no cellulitis A/P Assessment and plan (1) Small bowel obstruction: Plan: Status post exploratory laparotomy for small bowel obstruction with extensive lysis of adhesions. Bowel function slowly returning. Will advance diet as tolerated, DC IV fluid, changed to p.o. medications. Hospitalist to manage only A. fib. Status: Acute Time Spent With Patient Time: Total time spent is greater than 50% in coordination of care (as documented) at patient's floor/unit and/or counseling patient:
[2022-06-15 08:41] LABS: ALT/SGPT 13 U/L (<40); AST/SGOT 17 U/L (<32); Albumin 2.2 gm/dL (3.2-5.2); Albumin/Globulin Ratio 0.9 (1.0-2.3); Alkaline Phosphatase 116 U/L (39-117); Bilirubin,Direct < 0.2 mg/dL (0-0.3); Bilirubin,Total 0.5 mg/dL (0.1-1.0); Blood Urea Nitrogen 7 mg/dL (8-23); Calcium 7.9 mg/dL (8.6-10.4); Carbon Dioxide 33 mmol/L (22-30); Chloride 101 mmol/L (96-108); Globulin 2.4 gm/dL (2.2-3.7); Glomerular Filtration Rate 126; Glucose 95 mg/dL (70-105); Lactate Dehydrogenase 141 U/L (135-225); Phosphorous 3.4 mg/dL (2.5-4.5); Triglycerides 77 mg/dL (<150); Uric Acid 2.8 mg/dL (2.5-8.0)
[2022-06-15] MEDS: oxyCODONE HCL 5 MG TABLET PO PRN ×3 (08:47→22:42)
[2022-06-15] MEDS: METOPROLOL TARTRATE 50 MG TABLET PO SCH ×2 (08:47→20:55)
[2022-06-15] MEDS: LACTATED RINGERS 1,000 ML IV SCH ×2 (08:47→10:43)
--- NOTE | 2022-06-15 12:15 | XRay Report ---
INDICATION: hypoxia TECHNIQUE: AP portable semiupright chest x-ray COMPARISON: Previous chest x-rays dated 09/02/2020, 11/21/2017 FINDINGS: Lungs:Increased parenchymal density in the left retrocardiac region consistent with left lower lobe volume loss infiltrate. No other pulmonary parenchymal abnormality. No detectable mass Heart, vascular:There is cardiomegaly. Vascularity is prominent suggesting pulmonary congestion. No pulmonary edema Mediastinum, maría elena:No mediastinal widening. No hilar mass Pleura:There are small pleural effusions bilaterally. These are new since 09/02/2020 Skeletal:Negative. IMPRESSION: 1. Cardiomegaly and probable pulmonary congestion 2. Left lower lobe parenchymal density consistent with volume loss. Pneumonia is possible 3. Bilateral small effusions Interpreted and Authenticated by: Bharathi Walker 06/15/22
--- NOTE | 2022-06-15 13:18 | Internal Med Progress Note ---
SUBJECTIVE Subjective Patient information: Note initiated : 06/15/22 at 1:17 pm Service Date, if different from initiated Date: [] Patient: Tatyana Cordero 76 y/o F admitted on 06/07/22 for Lower Chest Pain. Chief Complaint: [] Principal diagnosis: Partial SBO, postop day #5 status post exploratory laparotomy with TAMMY Interval history: Chief complaint: History of A. fib and tachycardia and n.p.o. status History of present illness: Patient presented to the hospital on the for small bowel obstruction. Patient failed to progress and required exploratory laparotomy with extensive lysis of adhesions on the second. Awaiting bowel function, patient n.p.o. and unable to take her beta-senia for A. fib. She is tachycardic today anywhere from the low 90s to the 120s reading this afternoon at 138. Patient denies symptoms. She is on Coreg 25 twice daily and she says her blood pressure is always low with systolics in the 90s rarely above 100. Explained to her she probably does not need to be on such a high dose of Coreg. And perhaps she should be switched to metoprolol. Patient had denies nausea. She has some abdominal discomfort. Otherwise feeling okay. But not having any flatus yet. 06/11 Patient had A. fib RVR last night and required diltiazem drip. But only on . We will wean off to IV scheduled Lopressor. Patient denies any new complaints. She is still not having bowel function. Awaiting morning labs. 06/12 Brief episode of RVR yesterday afternoon but responded to 1 dose of IV Lopressor. Heart rate 90s to low 100s. Awaiting bowel function. Acid base disturbance improving. Hypophosphatemia. 06/13 Patient feeling a little better. She says she started to have little bit of gas. Leukocytosis resolved. Anemia. Heart rate little better today did require some diltiazem yesterday afternoon. Alkalosis improved. Hypophosphatemia. 06/14 Started on a full liquid diet, started Lopressor 50 mg twice daily, continue Lopressor IV as needed. Discontinued scheduled Cardizem IV and Lopressor IV. Magnesium IV given for magnesium level of 1.5. 06/15 No significant events overnight, continues on nasal cannula oxygen. Portable chest x-ray obtained shows probable pulmonary congestion and small bilateral effusions. Lasix 20 mg IV given once today. General surgery advanced patient to a regular diet. Nasogastric tube has been removed. Physical exam Head: Atraumatic, normal inspection. Eyes: normal appearance, no scleral icterus. Neck: full ROM Respiratory: no respiratory distress. Cardiovascular: normal rate and rhythm, S1, S2. GI/Abdominal: laparotomy incision covered with wound VAC, nontender, no guarding. Extremities: full range of motion, nontender. Neurological: CN II-XII intact, intact motor, intact sensation. Psychiatric: normal mood. Skin: warm, normal color Constitutional Vitals: Vital Signs Temp Pulse Resp BP Pulse Ox O2 Del Method O2 Flow Rate 98.3 F 72 18 96/53 95 1.5 06/15/22 12:30 06/15/22 12:30 06/15/22 12:30 06/15/22 12:30 06/15/22 12:30 06/15/22 12:30 06/15/22 12:30 Period Temp Pulse Resp BP Sys/Solomon Pulse Ox O2 Del Method O2 Flow Rate Last 24 Hr 97.9 F-98.6 F 72-122 -22 91-101/53-61 92-97 Nasal Cannula- Nasal Cannula 1-1.5 Intake and Output 06/14/22 06/15/22 06/15/22 21:59 05:59 13:59 Intake Total 651 135 1516 Output Total 300 650 Balance 400 -450 1200 Weight 53.119 kg Intake & Output: Intake & Output 06/14/22 06/15/22 06/15/22 21:59 05:59 13:59 Intake Total 889 676 3079 Output Total 300 650 Balance 400 -450 1200 Weight 53.119 kg Intake: IV 700 1000 Sodium Chloride 0.45% 1,000 ml 600 @ 75 mls/hr IV .[id number] [facility] Rx# :[id number] Lactated Ringers 1,000 ml @ 50 1000 mls/hr IV .Q20H [facility] Rx#: [id number] Oral 200 200 Output: Void Amount 300 650 Other: Meal Breakfast Percent of Meal Consumed 50% Urine Appearance Clear Clear Clear Urine Color Yellow Yellow Yellow Urine Odor Normal Normal Normal OBJ DATA Labs CBC & Chem 7: 06/15/22 06:57 06/15/22 06:57 Labs: Abnormal Lab Results 06/15/22 06/15/2222 06:57 06:57 05:50 RBC 3.38 L Hgb 10.5 L Hct 33.9 L MCV 100.3 H MCHC Immature Gran % (Auto) 0.7 H [place] % (Auto) 14.8 H Lymph # (Auto) 1.47 L [place] # (Auto) 1.11 H Carbon Dioxide 33 H Anion Gap 3.0 L BUN 7 L 6 L Creatinine 0.2 L 0.2 L Calcium 7.9 L 8.5 L Phosphorus Magnesium 1.5 L Direct Bilirubin 0.3 H GGT 80 H 76 H Total Protein 4.6 L 4.8 L Albumin 2.2 L 2.6 L Albumin/Globulin Ratio 0.9 L 06/13/22 06/13/22 06:05 06:05 RBC 3.38 L Hgb 10.7 L Hct MCV 102.7 H MCHC 30.8 L Immature Gran % (Auto) [place] % (Auto) 13.8 H Lymph # (Auto) 1.43 L [place] # (Auto) 1.26 H Carbon Dioxide Anion Gap BUN 7 L Creatinine 0.3 L Calcium 8.3 L Phosphorus 1.4 L Magnesium Direct Bilirubin GGT 49 H Total Protein 4.8 L Albumin 2.5 L Albumin/Globulin Ratio Meds: Medications Dextrose (Dextrose 50% 50 Ml Vial) 0 ml IV UD PRN PRN Reason: Per Sliding Scale Diagnostic Test (Pha) (Accu-Chek 1 Each Strip) 1 each FS ACHS [facility] Last Admin: 06/15/22 12:15 Dose: 1 each Glucose (Dextrose 31 Gm Oral.Susp) 15 gm PO PRN PRN PRN Reason: Hypoglycemia Hydromorphone HCl (Hydromorphone 0.5 Mg/0.5 Ml Syringe) 0.5 mg IV Q2HP PRN; Protocol PRN Reason: Per Pain Protocol Last Admin: 06/15/22 10:57 Dose: 0.5 mg Acetaminophen (Ofirmev) 500 mg in 50 mls @ 100 mls/hr IV Q6HP PRN; Protocol PRN Reason: PAIN/FEVER > 101 Last Infusion: 06/14/22 18:08 Dose: Infused Lactated Ringer's (Lactated Ringers) 1,000 mls @ 50 mls/hr IV .Q20H [facility] Last Admin: 06/15/22 10:43 Dose: 50 mls/hr Insulin Human Lispro (Insulin Lispro 1 Unit/0.01 Ml Unit) 0 unit SQ ACHS [facility]; Protocol Last Admin: 06/15/22 12:15 Dose: Not Given Latanoprost (Latanoprost Ophth Drops 2.5ml Bottle) 1 gtt OU QPM [facility] Last Admin: 06/14/22 22:00 Dose: Not Given Melatonin (Melatonin 3 Mg Tablet) 3 mg PO HSP PRN PRN Reason: Sleep Last Admin: 06/14/22 20:45 Dose: 3 mg Metoprolol Tartrate (Metoprolol Tartrate 5 Mg/5 Ml Vial) 5 mg IV Q2HP PRN PRN Reason: Tachyarrhythmias HR>110 Last Admin: 06/14/22 14:18 Dose: 5 mg Metoprolol Tartrate (Metoprolol Tartrate 50 Mg Tablet) 50 mg PO BID [facility] Last Admin: 06/15/22 08:47 Dose: 50 mg Ondansetron HCl (Ondansetron 4 Mg/2 Ml Vial) 4 mg IV Q6HP PRN PRN Reason: Nausea And Vomiting Last Admin: 06/14/22 09:51 Dose: 4 mg Oxycodone HCl (Oxycodone Hcl 5 Mg Tablet) 5 mg PO Q4-6HP PRN; Protocol PRN Reason: Per Pain Protocol Last Admin: 06/15/22 08:47 Dose: 5 mg Sodium Chloride (0.9 % Sodium Chloride 10 Ml Syringe) 10 ml IV Q8 [facility] Last Admin: 06/15/22 12:27 Dose: Not Given Warfarin Sodium (Warfarin 5 Mg Tablet) 5 mg PO SuTuThFrSa [facility] Last Admin: 06/14/22 15:19 Dose: 5 mg Warfarin Sodium (Warfarin 2.5 Mg Tablet) 2.5 mg PO MoWe [facility] A/P Narrative A/P Narrative: Assessment: 76-year-old female admitted for a small bowel obstruction requiring exploratory laparotomy with extensive lysis of adhesions. Postoperatively the patient developed atrial fibrillation with rapid ventricular response, hospital medicine was consulted for medical management. *SBO: s/p ex-lap lysis (06/10) *Hypoxia likely due to CHF from recent IV fluid *chronic AFib w/RVR: on coreg/warfarin -echo with good EF *HLD: *COPD: Plan: -Continue Lopressor 50 mg twice daily, continue Lopressor IV as needed for tachycardia. -Lasix 20 mg IV once, may need additional diuresis tomorrow. -Discontinue IV fluid. -Oxygen supplementation, monitor respiratory status. -Replace electrolytes as needed. -conveyor monitor. -pt states BP always low (systolic in 90's to 100). pt not needing to be on co reg 25mg bid anymore -pt/ot -ppx: Coumadin -CODE STATUS: Dampener Spent With Patient Time: Total time spent is greater than 50% in coordination of care (as documented) at patient's floor/unit and/or counseling patient:
[2022-06-15] MEDS ORDERED: FUROSEMIDE 20 MG/2 ML VIAL IV SCH (13:20)
[2022-06-15] MEDS: WARFARIN 5 MG TABLET PO SCH (14:03)
[2022-06-15] MEDS: MELATONIN 3 MG TABLET PO PRN (20:55)
[2022-06-15] MEDS: LATANOPROST OPHTH DROPS 2.5ML BOTTLE OU SCH (20:55)
[2022-06-16] MEDS: 0.9 % SODIUM CHLORIDE 10 ML SYRINGE IV SCH ×5 (00:20→20:54)
[2022-06-16] MEDS: HYDROmorphone 0.5 MG/0.5 ML SYRINGE IV PRN (00:20)
[2022-06-16] MEDS: oxyCODONE HCL 5 MG TABLET PO PRN ×4 (03:31→23:43)
[2022-06-16 06:41] LABS: Basophils # (Auto) 0.06 K/mcL (0.00-0.30); Basophils % (Auto) 0.8 % (0.0-2.0); Eosinophils # (Auto) 0.32 K/mcL (0.00-0.70); Eosinophils % (Auto) 4.3 % (0.0-7.0); Hematocrit 35.6 % (34.1-44.9); Hemoglobin 11.2 g/dL (11.2-15.7); Lymphocytes # (Auto) 1.23 K/mcL (1.50-4.80); Lymphocytes % (Auto) 16.4 % (15.5-49.0); Mean Cell Volume 99.7 fL (80.0-100.0); Mean Corpuscular HGB Conc 31.5 g/dL (31.0-36.0); Mean Platelet Volume 11.3 fL (8.8-12.5); Monocytes # (Auto) 1.08 K/mcL (0.10-0.90); Monocytes % (Auto) 14.4 % (1.0-12.0); Neutrophils % (Auto) 63.3 % (38.0-78.0); Platelet Count 198 K/mcL (140-440); RBC 3.57 M/mcL (3.59-5.38); Red Cell Distribution Width 13.2 % (11.5-14.5); WBC 7.5 K/mcL (4.5-11.0)
[2022-06-16 07:35] LABS: ALT/SGPT 13 U/L (<40); AST/SGOT 17 U/L (<32); Albumin 2.7 gm/dL (3.2-5.2); Albumin/Globulin Ratio 1.5 (1.0-2.3); Alkaline Phosphatase 103 U/L (39-117); Bilirubin,Direct < 0.2 mg/dL (0-0.3); Bilirubin,Total 0.5 mg/dL (0.1-1.0); Blood Urea Nitrogen 8 mg/dL (8-23); Calcium 8.2 mg/dL (8.6-10.4); Carbon Dioxide 36 mmol/L (22-30); Chloride 96 mmol/L (96-108); Globulin 1.8 gm/dL (2.2-3.7); Glomerular Filtration Rate 110; Glucose 89 mg/dL (70-105); Lactate Dehydrogenase 194 U/L (135-225); Triglycerides 98 mg/dL (<150); Uric Acid 3.3 mg/dL (2.5-8.0)
[2022-06-16] MEDS: INSULIN LISPRO 1 UNIT/0.01 ML UNIT SQ SCH ×4 (08:36→20:54)
[2022-06-16] MEDS: METOPROLOL TARTRATE 50 MG TABLET PO SCH ×2 (09:07→21:02)
[2022-06-16 09:34] LABS: POC INR 2.7 (0.8-1.2); POC Pro Time 30.7 (11.9-14.5)
--- NOTE | 2022-06-16 10:40 | General Surgery Progress Note ---
SUBJECTIVE Subjective Patient information: Note initiated : 06/16/22 at 10:36 am Service Date, if different from initiated Date: [] Patient: Tatyana Cordero 76 y/o F admitted on 06/07/22 for Lower Chest Pain. Chief Complaint: [] Looks and feels well this am, passing some gas, no BM yet, pain control is good Principal diagnosis: Partial SBO, postop day #5 status post exploratory laparotomy with TAMMY Constitutional Vitals: Vital Signs Temp Pulse Resp BP Pulse Ox O2 Del Method O2 Flow Rate 98.3 F 103 H 18 108/54 92 0.5 06/16/22 08:36 06/16/22 08:36 06/16/22 08:36 06/16/22 08:36 06/16/22 08:36 06/16/22 08:36 06/16/22 08:36 Period Temp Pulse Resp BP Sys/Solomon Pulse Ox O2 Del Method O2 Flow Rate Last 24 Hr 97.8 F-98.9 F 72-107 18-18 95-111/53-76 92-97 Nasal Cannula- Nasal Cannula 0.5-1.5 Intake and Output 06/15/22 06/16/22 06/16/22 21:59 05:59 13:59 Intake Total 350 300 Output Total 825 500 50 Balance -475 -200 -50 Weight 116 lb 5 oz Intake & Output: Intake & Output 06/15/22 06/16/22 06/16/22 21:59 05:59 13:59 Intake Total 350 300 Output Total 825 500 50 Balance -475 -200 -50 Weight 116 lb 5 oz Intake: Oral 350 300 Output: Void Amount 825 500 50 Other: Meal Dinner Breakfast Percent of Meal Consumed 75% 100% Feeding Ability Independent Independent Urine Appearance Clear Clear Urine Color Yellow Yellow Urine Odor Normal Normal Exam: Looks well, NAD, conversant Respiratory Respiratory exam: Present normal respiratory exam Additional comments: non labored, conversant Cardiovascular Cardiovascular exam: Present normal rate and rhythm GI/Abdominal Additional comments: soft, non tender, VAC in place and functioning, no distension Extremities Exam Additional comments: well perfused A/P Assessment and plan (1) Small bowel obstruction: Assessment and plan: POD #6 Ex Lap and Lysis of Adhesions for non resolving SBO Doing Well with expected progression Increase activity today, will add suppositories, possible discharge tomorrow Re check INR in am Status: Acute Time Spent With Patient Time: Total time spent is greater than 50% in coordination of care (as documented) at patient's floor/unit and/or counseling patient:
[2022-06-16] MEDS ORDERED: FUROSEMIDE 20 MG/2 ML VIAL IV ONE (11:19)
--- NOTE | 2022-06-16 11:43 | Internal Med Progress Note ---
SUBJECTIVE Subjective Patient information: Note initiated : 06/16/22 at 11:41 am Service Date, if different from initiated Date: [] Patient: Tatyana Cordero 76 y/o F admitted on 06/07/22 for Lower Chest Pain. Chief Complaint: [] Principal diagnosis: Partial SBO, postop day #5 status post exploratory laparotomy with TAMMY Interval history: Chief complaint: History of A. fib and tachycardia and n.p.o. status History of present illness: Patient presented to the hospital on the for small bowel obstruction. Patient failed to progress and required exploratory laparotomy with extensive lysis of adhesions on the second. Awaiting bowel function, patient n.p.o. and unable to take her beta-senia for A. fib. She is tachycardic today anywhere from the low 90s to the 120s reading this afternoon at 138. Patient denies symptoms. She is on Coreg 25 twice daily and she says her blood pressure is always low with systolics in the 90s rarely above 100. Explained to her she probably does not need to be on such a high dose of Coreg. And perhaps she should be switched to metoprolol. Patient had denies nausea. She has some abdominal discomfort. Otherwise feeling okay. But not having any flatus yet. 06/11 Patient had A. fib RVR last night and required diltiazem drip. But only on . We will wean off to IV scheduled Lopressor. Patient denies any new complaints. She is still not having bowel function. Awaiting morning labs. 06/12 Brief episode of RVR yesterday afternoon but responded to 1 dose of IV Lopressor. Heart rate 90s to low 100s. Awaiting bowel function. Acid base disturbance improving. Hypophosphatemia. 06/13 Patient feeling a little better. She says she started to have little bit of gas. Leukocytosis resolved. Anemia. Heart rate little better today did require some diltiazem yesterday afternoon. Alkalosis improved. Hypophosphatemia. 06/14 Started on a full liquid diet, started Lopressor 50 mg twice daily, continue Lopressor IV as needed. Discontinued scheduled Cardizem IV and Lopressor IV. Magnesium IV given for magnesium level of 1.5. 06/15 No significant events overnight, continues on nasal cannula oxygen. Portable chest x-ray obtained shows probable pulmonary congestion and small bilateral effusions. Lasix 20 mg IV given once today. General surgery advanced patient to a regular diet. Nasogastric tube has been removed. 06/16 Oxygen weaned down to 2.5 L/min, patient appears to be breathing more comfortably. Passing gas, no bowel movement. Lasix 20 mg IV once today. Physical exam Head: Atraumatic, normal inspection. Eyes: normal appearance, no scleral icterus. Neck: full ROM Respiratory: no respiratory distress. Cardiovascular: normal rate and rhythm, S1, S2. GI/Abdominal: laparotomy incision covered with wound VAC, nontender, no guarding. Extremities: full range of motion, nontender. Neurological: CN II-XII intact, intact motor, intact sensation. Psychiatric: normal mood. Skin: warm, normal color Constitutional Vitals: Vital Signs Temp Pulse Resp BP Pulse Ox O2 Del Method O2 Flow Rate 98.3 F 103 H 18 108/54 92 0.5 06/16/22 08:36 06/16/22 08:36 06/16/22 08:36 06/16/22 08:36 06/16/22 08:36 06/16/22 08:36 06/16/22 08:36 Period Temp Pulse Resp BP Sys/Solomon Pulse Ox O2 Del Method O2 Flow Rate Last 24 Hr 97.8 F-98.9 F 72-107 18-18 95-111/53-76 92-97 Nasal Cannula- Nasal Cannula 0.5-1.5 Intake and Output 06/15/22 06/16/22 06/16/22 21:59 05:59 13:59 Intake Total 350 300 Output Total 825 500 50 Balance -475 -200 -50 Weight 52.758 kg Intake & Output: Intake & Output 06/15/22 06/16/22 06/16/22 21:59 05:59 13:59 Intake Total 350 300 Output Total 825 500 50 Balance -475 -200 -50 Weight 52.758 kg Intake: Oral 350 300 Output: Void Amount 825 500 50 Other: Meal Dinner Breakfast Percent of Meal Consumed 75% 100% Feeding Ability Independent Independent Urine Appearance Clear Clear Urine Color Yellow Yellow Urine Odor Normal Normal OBJ DATA Labs CBC & Chem 7: 06/16/22 05:48 06/16/22 05:48 Labs: Abnormal Lab Results 06/16/22 06/16/22 06/16/22 09:28 05:48 05:48 RBC 3.57 L Hgb Hct MCV Immature Gran % (Auto) 0.8 H Swift % (Auto) 14.4 H Lymph # (Auto) 1.23 L Swift # (Auto) 1.08 H Immature Gran # 0.06 H POC PT 30.7 H POC INR 2.7 H Carbon Dioxide 36 H Anion Gap 5.0 L BUN Creatinine 0.3 L Calcium 8.2 L Magnesium Direct Bilirubin GGT 65 H Total Protein 4.5 L Albumin 2.7 L Globulin 1.8 L Albumin/Globulin Ratio 06/15/22 06/15/22 06/14/22 06:57 06:57 05:50 RBC 3.38 L Hgb 10.5 L Hct 33.9 L MCV 100.3 H Immature Gran % (Auto) 0.7 H Swift % (Auto) 14.8 H Lymph # (Auto) 1.47 L Swift # (Auto) 1.11 H Immature Gran # POC PT POC INR Carbon Dioxide 33 H Anion Gap 3.0 L BUN 7 L 6 L Creatinine 0.2 L 0.2 L Calcium 7.9 L 8.5 L Magnesium 1.5 L Direct Bilirubin 0.3 H GGT 80 H 76 H Total Protein 4.6 L 4.8 L Albumin 2.2 L 2.6 L Globulin Albumin/Globulin Ratio 0.9 L Meds: Medications Bisacodyl (Bisacodyl 10 Mg Supp.Rect) 10 mg UT BID [facility] Dextrose (Dextrose 50% 50 Ml Vial) 0 ml IV UD PRN PRN Reason: Per Sliding Scale Diagnostic Test (Pha) (Accu-Chek 1 Each Strip) 1 each FS ACHS [facility] Last Admin: 06/16/22 08:32 Dose: 1 each Glucose (Dextrose 31 Gm Oral.Susp) 15 gm PO PRN PRN PRN Reason: Hypoglycemia Hydromorphone HCl (Hydromorphone 0.5 Mg/0.5 Ml Syringe) 0.5 mg IV Q2HP PRN; Protocol PRN Reason: Per Pain Protocol Last Admin: 06/16/22 00:20 Dose: 0.5 mg Acetaminophen (Ofirmev) 500 mg in 50 mls @ 100 mls/hr IV Q6HP PRN; Protocol PRN Reason: PAIN/FEVER > 101 Last Infusion: 06/14/22 18:08 Dose: Infused Insulin Human Lispro (Insulin Lispro 1 Unit/0.01 Ml Unit) 0 unit SQ [facility]; Protocol Last Admin: 06/16/22 08:36 Dose: Not Given Latanoprost (Latanoprost Ophth Drops 2.5ml Bottle) 1 gtt OU QPM [facility] Last Admin: 06/15/22 20:55 Dose: Not Given Melatonin (Melatonin 3 Mg Tablet) 3 mg PO HSP PRN PRN Reason: Sleep Last Admin: 06/15/22 20:55 Dose: 3 mg Metoprolol Tartrate (Metoprolol Tartrate 5 Mg/5 Ml Vial) 5 mg IV Q2HP PRN PRN Reason: Tachyarrhythmias HR>110 Last Admin: 06/14/22 14:18 Dose: 5 mg Metoprolol Tartrate (Metoprolol Tartrate 50 Mg Tablet) 50 mg PO BID [facility] Last Admin: 06/16/22 09:07 Dose: 50 mg Ondansetron HCl (Ondansetron 4 Mg/2 Ml Vial) 4 mg IV Q6HP PRN PRN Reason: Nausea And Vomiting Last Admin: 06/14/22 09:51 Dose: 4 mg Oxycodone HCl (Oxycodone Hcl 5 Mg Tablet) 5 mg PO Q4-6HP PRN; Protocol PRN Reason: Per Pain Protocol Last Admin: 06/16/22 10:04 Dose: 5 mg Sodium Chloride (0.9 % Sodium Chloride 10 Ml Syringe) 10 ml IV Q8 [facility] Last Admin: 06/16/22 06:03 Dose: 10 ml Warfarin Sodium (Warfarin 5 Mg Tablet) 5 mg PO SuTuThFrSa [facility] Last Admin: 06/15/22 14:03 Dose: 5 mg Warfarin Sodium (Warfarin 2.5 Mg Tablet) 2.5 mg PO MoWe [facility] A/P Narrative A/P Narrative: Assessment: 76-year-old female admitted for a small bowel obstruction requiring exploratory laparotomy with extensive lysis of adhesions. Postoperatively the patient developed atrial fibrillation with rapid ventricular response, hospital medicine was consulted for medical management. *SBO: s/p ex-lap lysis (06/10) *Hypoxia likely due to CHF from recent IV fluid *chronic AFib w/RVR: on coreg/warfarin -echo with good EF *HLD: *COPD: Plan: -Continue Lopressor 50 mg twice daily, continue Lopressor IV as needed for tachycardia. -Lasix 20 mg IV once today. -Oxygen supplementation, wean as tolerated. -Replace electrolytes as needed. 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
[2022-06-16] MEDS: BISACODYL 10 MG SUPP.RECT PR SCH ×2 (13:30→19:17)
[2022-06-16] MEDS: METOPROLOL TARTRATE 5 MG/5 ML VIAL IV PRN ×2 (16:33→19:17)
[2022-06-16] MEDS: LATANOPROST OPHTH DROPS 2.5ML BOTTLE OU SCH (20:55)
[2022-06-16] MEDS ORDERED: BISACODYL 10 MG SUPP.RECT PR SCH (21:00)
[2022-06-16] MEDS: MELATONIN 3 MG TABLET PO PRN (21:03)
[2022-06-17] MEDS: METOPROLOL TARTRATE 5 MG/5 ML VIAL IV PRN ×2 (01:00→21:10)
[2022-06-17] MEDS: 0.9 % SODIUM CHLORIDE 10 ML SYRINGE IV SCH ×7 (01:00→21:10)
[2022-06-17] MEDS: oxyCODONE HCL 5 MG TABLET PO PRN ×4 (05:23→23:26)
[2022-06-17 07:04] LABS: Basophils # (Auto) 0.06 K/mcL (0.00-0.30); Basophils % (Auto) 0.7 % (0.0-2.0); Eosinophils # (Auto) 0.26 K/mcL (0.00-0.70); Hematocrit 34.2 % (34.1-44.9); Hemoglobin 11.3 g/dL (11.2-15.7); INR 2.3 (0.9-1.1); Lymphocytes # (Auto) 1.64 K/mcL (1.50-4.80); Lymphocytes % (Auto) 18.9 % (15.5-49.0); Mean Cell Volume 96.6 fL (80.0-100.0); Monocytes # (Auto) 1.38 K/mcL (0.10-0.90); Monocytes % (Auto) 15.9 % (1.0-12.0); Platelet Count 222 K/mcL (140-440); Prothrombin Time 25.8 sec (11.9-14.5); RBC 3.54 M/mcL (3.59-5.38); Red Cell Distribution Width 13.2 % (11.5-14.5); WBC 8.7 K/mcL (4.5-11.0)
[2022-06-17 07:27] LABS: ALT/SGPT 12 U/L (<40); AST/SGOT 15 U/L (<32); Albumin 2.8 gm/dL (3.2-5.2); Albumin/Globulin Ratio 1.6 (1.0-2.3); Alkaline Phosphatase 103 U/L (39-117); Bilirubin,Direct 0.2 mg/dL (<0.3); Bilirubin,Total 0.7 mg/dL (0.1-1.0); Blood Urea Nitrogen 8 mg/dL (8-23); Calcium 8.6 mg/dL (8.6-10.4); Carbon Dioxide 39 mmol/L (22-30); Chloride 97 mmol/L (96-108); Globulin 1.8 gm/dL (2.2-3.7); Glomerular Filtration Rate 110; Glucose 91 mg/dL (70-105); Lactate Dehydrogenase 138 U/L (135-225); Phosphorous 3.3 mg/dL (2.5-4.5); Triglycerides 92 mg/dL (<150); Uric Acid 3.8 mg/dL (2.5-8.0)
[2022-06-17] MEDS: INSULIN LISPRO 1 UNIT/0.01 ML UNIT SQ SCH ×4 (08:07→20:11)
[2022-06-17] MEDS: METOPROLOL TARTRATE 50 MG TABLET PO SCH (08:08)
--- NOTE | 2022-06-17 11:55 | General Surgery Progress Note ---
SUBJECTIVE Subjective Patient information: Note initiated : 06/17/22 at 11:51 am Service Date, if different from initiated Date: [] Patient: Tatyana Cordero 76 y/o F admitted on 06/07/22 for Lower Chest Pain. Chief Complaint: [] She looks well, has passed some soft stools, tolerating diet Principal diagnosis: Partial SBO, postop day #5 status post exploratory laparotomy with TAMMY Constitutional Vitals: Vital Signs Temp Pulse Resp BP Pulse Ox O2 Del Method O2 Flow Rate 98.0 F 91 H 18 113/64 94 1 06/17/22 11:36 06/17/22 11:36 06/17/22 11:36 06/17/22 11:36 06/17/22 11:36 06/17/22 11:36 06/17/22 11:36 Period Temp Pulse Resp BP Sys/Solomon Pulse Ox O2 Del Method O2 Flow Rate Last 24 Hr 97.5 F-99.1 F 87-125 16-18 98-133/55-67 91-97 Nasal Cannula- Nasal Cannula 0.5-1.5 Intake and Output 06/16/22 06/17/22 06/17/22 21:59 05:59 13:59 Intake Total 200 300 Output Total 1150 350 110 Balance -950 -50 -110 Weight 116 lb Intake & Output: Intake & Output 06/16/22 06/17/22 06/17/22 21:59 05:59 13:59 Intake Total 200 300 Output Total 1150 350 110 Balance -950 -50 -110 Weight 116 lb Intake: Oral 200 300 Output: Void Amount 1150 350 110 Other: Meal Dinner Breakfast Percent of Meal Consumed 50% 100% Feeding Ability Independent Urine Appearance Clear Clear Urine Color Yellow Dark Yellow Urine Odor Normal Normal Stool Size Small Small Smear Stool Color Brown Brown Brown Stool Consistency Loose Loose # Bowel Movements 1 1 Exam: Conversant, looks well, daughter at bedside Respiratory Additional comments: Remains on O2, normal effort, non labored Cardiovascular Cardiovascular exam: Present RRR GI/Abdominal Additional comments: soft and non distended, VAC in place and working well Extremities Exam Additional comments: appear well perfused A/P Assessment and plan (1) Small bowel obstruction: Assessment and plan: POD #7 Doing Well Resolved SBO Will continue to work on coming off ambulatory O2 today, home in AM with home O2 if need be Status: Acute Time Spent With Patient Time: Total time spent is greater than 50% in coordination of care (as documented) at patient's floor/unit and/or counseling patient:
[2022-06-17] MEDS ORDERED: BISACODYL 10 MG SUPP.RECT PR PRN (12:09)
[2022-06-17] MEDS: BISACODYL 10 MG SUPP.RECT PR SCH (12:50)
[2022-06-17] MEDS ORDERED: WARFARIN 2.5 MG TABLET PO ONE (14:00)
--- NOTE | 2022-06-17 15:14 | Internal Med Progress Note ---
SUBJECTIVE Subjective Patient information: Note initiated : 06/17/22 at 3:13 pm Service Date, if different from initiated Date: [] Patient: Tatyana Cordero 76 y/o F admitted on 06/07/22 for Lower Chest Pain. Chief Complaint: [] Principal diagnosis: Partial SBO, postop day #5 status post exploratory laparotomy with TAMMY Interval history: Chief complaint: History of A. fib and tachycardia and n.p.o. status History of present illness: Patient presented to the hospital on the for small bowel obstruction. Patient failed to progress and required exploratory laparotomy with extensive lysis of adhesions on the second. Awaiting bowel function, patient n.p.o. and unable to take her beta-senia for A. fib. She is tachycardic today anywhere from the low 90s to the 120s reading this afternoon at 138. Patient denies symptoms. She is on Coreg 25 twice daily and she says her blood pressure is always low with systolics in the 90s rarely above 100. Explained to her she probably does not need to be on such a high dose of Coreg. And perhaps she should be switched to metoprolol. Patient had denies nausea. She has some abdominal discomfort. Otherwise feeling okay. But not having any flatus yet. 06/11 Patient had A. fib RVR last night and required diltiazem drip. But only on . We will wean off to IV scheduled Lopressor. Patient denies any new complaints. She is still not having bowel function. Awaiting morning labs. 06/12 Brief episode of RVR yesterday afternoon but responded to 1 dose of IV Lopressor. Heart rate 90s to low 100s. Awaiting bowel function. Acid base disturbance improving. Hypophosphatemia. 06/13 Patient feeling a little better. She says she started to have little bit of gas. Leukocytosis resolved. Anemia. Heart rate little better today did require some diltiazem yesterday afternoon. Alkalosis improved. Hypophosphatemia. 06/14 Started on a full liquid diet, started Lopressor 50 mg twice daily, continue Lopressor IV as needed. Discontinued scheduled Cardizem IV and Lopressor IV. Magnesium IV given for magnesium level of 1.5. 06/15 No significant events overnight, continues on nasal cannula oxygen. Portable chest x-ray obtained shows probable pulmonary congestion and small bilateral effusions. Lasix 20 mg IV given once today. General surgery advanced patient to a regular diet. Nasogastric tube has been removed. 06/16 Oxygen weaned down to 2.5 L/min, patient appears to be breathing more comfortably. Passing gas, no bowel movement. Lasix 20 mg IV once today. 06/17 Appears comfortable, no significant events overnight except difficulty falling asleep and intermittent tachycardia secondary to A. fib. Increase Lopressor to 75 mg twice daily for better rate control, increased melatonin dose. Physical exam Head: Atraumatic, normal inspection. Eyes: normal appearance, no scleral icterus. Neck: full ROM Respiratory: no respiratory distress. Cardiovascular: normal rate and rhythm, S1, S2. GI/Abdominal: laparotomy incision covered with wound VAC, nontender, no guarding. Extremities: full range of motion, nontender. Neurological: CN II-XII intact, intact motor, intact sensation. Psychiatric: normal mood. Skin: warm, normal color Constitutional Vitals: Vital Signs Temp Pulse Resp BP Pulse Ox O2 Del Method O2 Flow Rate 98.0 F 91 H 18 113/64 94 1 06/17/22 11:36 06/17/22 11:36 06/17/22 11:36 06/17/22 11:36 06/17/22 11:36 06/17/22 11:36 06/17/22 11:36 Period Temp Pulse Resp BP Sys/Solomon Pulse Ox O2 Del Method O2 Flow Rate Last 24 Hr 97.5 F-99.1 F 87-125 16-18 98-133/55-64 91-97 Nasal Cannula- Nasal Cannula 0.5-1.5 Intake and Output 06/17/22 06/17/22 06/17/22 05:59 13:59 21:59 Intake Total 300 Output Total 350 360 Balance -50 -360 Intake & Output: Intake & Output 06/17/22 06/17/22 06/17/22 05:59 13:59 21:59 Intake Total 300 Output Total 350 360 Balance -50 -360 Intake: Oral 300 Output: Void Amount 350 360 Other: Meal Lunch Percent of Meal Consumed 100% Feeding Ability Independent Urine Appearance Clear Urine Color Yellow Urine Odor Normal Stool Size Small Smear Stool Color Brown Brown Stool Consistency Loose Loose # Bowel Movements 1 1 OBJ DATA Labs CBC & Chem 7: 06/17/22 05:44 06/17/22 05:44 Labs: Abnormal Lab Results 06/17/22 06/17/22 06/17/22 05:44 05:44 05:44 RBC 3.54 L Hgb Hct MCV Immature Gran % (Auto) [place] % (Auto) 15.9 H Lymph # (Auto) [place] # (Auto) 1.38 H Immature Gran # POC PT PT 25.8 H POC INR INR 2.3 H Carbon Dioxide 39 H Anion Gap 5.0 L BUN Creatinine 0.3 L Calcium GGT 66 H Total Protein 4.6 L Albumin 2.8 L Globulin 1.8 L Albumin/Globulin Ratio 06/16/22 06/16/22 06/16/22 09:28 05:48 05:48 RBC 3.57 L Hgb Hct MCV Immature Gran % (Auto) 0.8 H [place] % (Auto) 14.4 H Lymph # (Auto) 1.23 L [place] # (Auto) 1.08 H Immature Gran # 0.06 H POC PT 30.7 H PT POC INR 2.7 H INR Carbon Dioxide 36 H Anion Gap 5.0 L BUN Creatinine 0.3 L Calcium 8.2 L GGT 65 H Total Protein 4.5 L Albumin 2.7 L Globulin 1.8 L Albumin/Globulin Ratio 06/15/22 06/15/22 06:57 06:57 RBC 3.38 L Hgb 10.5 L Hct 33.9 L MCV 100.3 H Immature Gran % (Auto) 0.7 H [place] % (Auto) 14.8 H Lymph # (Auto) 1.47 L [place] # (Auto) 1.11 H Immature Gran # POC PT PT POC INR INR Carbon Dioxide 33 H Anion Gap 3.0 L BUN 7 L Creatinine 0.2 L Calcium 7.9 L GGT 80 H Total Protein 4.6 L Albumin 2.2 L Globulin Albumin/Globulin Ratio 0.9 L Meds: Medications Bisacodyl (Bisacodyl 10 Mg Supp.Rect) 10 mg AR PRN PRN PRN Reason: Constipation Dextrose (Dextrose 50% 50 Ml Vial) 0 ml IV UD PRN PRN Reason: Per Sliding Scale Diagnostic Test (Pha) (Accu-Chek 1 Each Strip) 1 each FS ACHS [facility] Last Admin: 06/17/22 11:35 Dose: 1 each Glucose (Dextrose 31 Gm Oral.Susp) 15 gm PO PRN PRN PRN Reason: Hypoglycemia Hydromorphone HCl (Hydromorphone 0.5 Mg/0.5 Ml Syringe) 0.5 mg IV Q2HP PRN; Protocol PRN Reason: Per Pain Protocol Last Admin: 06/16/22 00:20 Dose: 0.5 mg Acetaminophen (Ofirmev) 500 mg in 50 mls @ 100 mls/hr IV Q6HP PRN; Protocol PRN Reason: PAIN/FEVER > 101 Last Infusion: 06/14/22 18:08 Dose: Infused Insulin Human Lispro (Insulin Lispro 1 Unit/0.01 Ml Unit) 0 unit SQ ACHS [facility]; Protocol Last Admin: 06/17/22 12:50 Dose: Not Given Latanoprost (Latanoprost Ophth Drops 2.5ml Bottle) 1 gtt OU QPM [facility] Last Admin: 06/16/22 20:55 Dose: 1 gtt Melatonin (Melatonin 3 Mg Tablet) 6 mg PO HSP PRN PRN Reason: Sleep Metoprolol Tartrate (Metoprolol Tartrate 5 Mg/5 Ml Vial) 5 mg IV Q2HP PRN PRN Reason: Tachyarrhythmias HR>110 Last Admin: 06/17/22 01:00 Dose: 5 mg Metoprolol Tartrate (Metoprolol Tartrate 50 Mg Tablet) 75 mg PO BID [facility] Ondansetron HCl (Ondansetron 4 Mg/2 Ml Vial) 4 mg IV Q6HP PRN PRN Reason: Nausea And Vomiting Last Admin: 06/14/22 09:51 Dose: 4 mg Oxycodone HCl (Oxycodone Hcl 5 Mg Tablet) 5 mg PO Q4-6HP PRN; Protocol PRN Reason: Per Pain Protocol Last Admin: 06/17/22 05:23 Dose: 5 mg Sodium Chloride (0.9 % Sodium Chloride 10 Ml Syringe) 10 ml IV Q8 [facility] Last Admin: 06/17/22 14:17 Dose: 10 ml Warfarin Sodium (Warfarin Per Pharmacy) 1 order PO DAILY@1400 [facility] Last Admin: 06/17/22 14:13 Dose: Not Given A/P Narrative A/P Narrative: Assessment: 76-year-old female admitted for a small bowel obstruction requiring exploratory laparotomy with extensive lysis of adhesions. Postoperatively the patient developed atrial fibrillation with rapid ventricular response, hospital medicine was consulted for medical management. *SBO: s/p ex-lap lysis (06/10) *Hypoxia likely due to CHF from recent IV fluid *chronic AFib w/RVR: on coreg/warfarin -echo with good EF *HLD: *COPD: Plan: -Increase Lopressor to 75 mg twice daily, continue Lopressor IV as needed for tachycardia. -Oxygen supplementation, wean as tolerated. 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
[2022-06-17] MEDS: HYDROmorphone 0.5 MG/0.5 ML SYRINGE IV PRN ×2 (18:32→20:49)
--- NOTE | 2022-06-17 18:35 | Internal Med Progress Note ---
SUBJECTIVE Subjective Patient information: Note initiated : 06/17/22 at 6:33 pm Service Date, if different from initiated Date: [] Patient: Tatyana Cordero 76 y/o F admitted on 06/07/22 for Lower Chest Pain. Chief Complaint: [] Principal diagnosis: Partial SBO, postop day #5 status post exploratory laparotomy with TAMMY Interval history: Chief complaint: History of A. fib and tachycardia and n.p.o. status History of present illness: Patient presented to the hospital on the for small bowel obstruction. Patient failed to progress and required exploratory laparotomy with extensive lysis of adhesions on the second. Awaiting bowel function, patient n.p.o. and unable to take her beta-senia for A. fib. She is tachycardic today anywhere from the low 90s to the 120s reading this afternoon at 138. Patient denies symptoms. She is on Coreg 25 twice daily and she says her blood pressure is always low with systolics in the 90s rarely above 100. Explained to her she probably does not need to be on such a high dose of Coreg. And perhaps she should be switched to metoprolol. Patient had denies nausea. She has some abdominal discomfort. Otherwise feeling okay. But not having any flatus yet. 06/11 Patient had A. fib RVR last night and required diltiazem drip. But only on . We will wean off to IV scheduled Lopressor. Patient denies any new complaints. She is still not having bowel function. Awaiting morning labs. 06/12 Brief episode of RVR yesterday afternoon but responded to 1 dose of IV Lopressor. Heart rate 90s to low 100s. Awaiting bowel function. Acid base disturbance improving. Hypophosphatemia. 06/13 Patient feeling a little better. She says she started to have little bit of gas. Leukocytosis resolved. Anemia. Heart rate little better today did require some diltiazem yesterday afternoon. Alkalosis improved. Hypophosphatemia. 06/14 Started on a full liquid diet, started Lopressor 50 mg twice daily, continue Lopressor IV as needed. Discontinued scheduled Cardizem IV and Lopressor IV. Magnesium IV given for magnesium level of 1.5. 06/15 No significant events overnight, continues on nasal cannula oxygen. Portable chest x-ray obtained shows probable pulmonary congestion and small bilateral effusions. Lasix 20 mg IV given once today. General surgery advanced patient to a regular diet. Nasogastric tube has been removed. 06/16 Oxygen weaned down to 2.5 L/min, patient appears to be breathing more comfortably. Passing gas, no bowel movement. Lasix 20 mg IV once today. 06/17 Appears comfortable, no significant events overnight except difficulty falling asleep and intermittent tachycardia secondary to A. fib. Increase Lopressor to 75 mg twice daily for better rate control, increased melatonin dose. 06/18 Patient continues to have tachycardia with his atrial fibrillation, hypotensive overnight. X-ray shows improved pulmonary vascular congestion. We will get a CTA chest to make sure the patient does not have a PE as INR has been subtherapeutic intermittently during this hospitalization. Cardiology consulted to assist with A. fib rate control. Physical exam Head: Atraumatic, normal inspection. Eyes: normal appearance, no scleral icterus. Neck: full ROM Respiratory: no respiratory distress. Cardiovascular: normal rate and rhythm, S1, S2. GI/Abdominal: laparotomy incision covered with wound VAC, nontender, no guarding. Extremities: full range of motion, nontender. Neurological: CN II-XII intact, intact motor, intact sensation. Psychiatric: normal mood. Skin: warm, normal color Constitutional Vitals: Vital Signs Temp Pulse Resp BP Pulse Ox O2 Del Method O2 Flow Rate 99.1 F H 89 20 111/62 91 1 06/17/22 16:00 06/17/22 16:00 06/17/22 16:00 06/17/22 16:00 06/17/22 16:00 06/17/22 16:00 06/17/22 16:00 Period Temp Pulse Resp BP Sys/Solomon Pulse Ox O2 Del Method O2 Flow Rate Last 24 Hr 97.5 F-99.1 F 87-125 16-20 98-133/55-64 91-97 Nasal Cannula- Nasal Cannula 1-1.5 Intake and Output 06/17/22 06/17/22 06/17/22 05:59 13:59 21:59 Intake Total 300 250 Output Total 350 360 260 Balance -50 -360 -10 Intake & Output: Intake & Output 06/17/22 06/17/22 06/17/22 05:59 13:59 21:59 Intake Total 300 250 Output Total 350 360 260 Balance -50 -360 -10 Intake: Oral 300 250 Output: Void Amount 350 360 260 Other: Meal Lunch Percent of Meal Consumed 100% Feeding Ability Independent Urine Appearance Clear Clear Urine Color Yellow Yellow Urine Odor Normal Normal Stool Size Small Smear Stool Color Brown Brown Stool Consistency Loose Loose # Bowel Movements 1 1 OBJ DATA Labs CBC & Chem 7: 06/18/22 05:37 06/18/22 05:37 Labs: Abnormal Lab Results 06/17/22 06/17/22 06/17/22 05:44 05:44 05:44 RBC 3.54 L Hgb Hct MCV Immature Gran % (Auto) Harnett % (Auto) 15.9 H Lymph # (Auto) Harnett # (Auto) 1.38 H Immature Gran # POC PT PT 25.8 H POC INR INR 2.3 H Carbon Dioxide 39 H Anion Gap 5.0 L BUN Creatinine 0.3 L Calcium GGT 66 H Total Protein 4.6 L Albumin 2.8 L Globulin 1.8 L Albumin/Globulin Ratio 06/16/22 06/16/22 06/16/22 09:28 05:48 05:48 RBC 3.57 L Hgb Hct MCV Immature Gran % (Auto) 0.8 H Harnett % (Auto) 14.4 H Lymph # (Auto) 1.23 L Harnett # (Auto) 1.08 H Immature Gran # 0.06 H POC PT 30.7 H PT POC INR 2.7 H INR Carbon Dioxide 36 H Anion Gap 5.0 L BUN Creatinine 0.3 L Calcium 8.2 L GGT 65 H Total Protein 4.5 L Albumin 2.7 L Globulin 1.8 L Albumin/Globulin Ratio 06/15/22 06/15/22 06:57 06:57 RBC 3.38 L Hgb 10.5 L Hct 33.9 L MCV 100.3 H Immature Gran % (Auto) 0.7 H Harnett % (Auto) 14.8 H Lymph # (Auto) 1.47 L Harnett # (Auto) 1.11 H Immature Gran # POC PT PT POC INR INR Carbon Dioxide 33 H Anion Gap 3.0 L BUN 7 L Creatinine 0.2 L Calcium 7.9 L GGT 80 H Total Protein 4.6 L Albumin 2.2 L Globulin Albumin/Globulin Ratio 0.9 L Meds: Medications Bisacodyl (Bisacodyl 10 Mg Supp.Rect) 10 mg OR PRN PRN PRN Reason: Constipation Dextrose (Dextrose 50% 50 Ml Vial) 0 ml IV UD PRN PRN Reason: Per Sliding Scale Diagnostic Test (Pha) (Accu-Chek 1 Each Strip) 1 each FS ACHS [facility] Last Admin: 06/17/22 17:22 Dose: 1 each Glucose (Dextrose 31 Gm Oral.Susp) 15 gm PO PRN PRN PRN Reason: Hypoglycemia Hydromorphone HCl (Hydromorphone 0.5 Mg/0.5 Ml Syringe) 0.5 mg IV Q2HP PRN; Protocol PRN Reason: Per Pain Protocol Last Admin: 06/16/22 00:20 Dose: 0.5 mg Acetaminophen (Ofirmev) 500 mg in 50 mls @ 100 mls/hr IV Q6HP PRN; Protocol PRN Reason: PAIN/FEVER > 101 Last Infusion: 06/14/22 18:08 Dose: Infused Insulin Human Lispro (Insulin Lispro 1 Unit/0.01 Ml Unit) 0 unit SQ [facility]; P rotocol Last Admin: 06/17/22 17:25 Dose: Not Given Latanoprost (Latanoprost Ophth Drops 2.5ml Bottle) 1 gtt OU QPM [facility] Last Admin: 06/16/22 20:55 Dose: 1 gtt Melatonin (Melatonin 3 Mg Tablet) 6 mg PO HSP PRN PRN Reason: Sleep Metoprolol Tartrate (Metoprolol Tartrate 5 Mg/5 Ml Vial) 5 mg IV Q2HP PRN PRN Reason: Tachyarrhythmias HR>110 Last Admin: 06/17/22 01:00 Dose: 5 mg Metoprolol Tartrate (Metoprolol Tartrate 50 Mg Tablet) 75 mg PO BID [facility] Ondansetron HCl (Ondansetron 4 Mg/2 Ml Vial) 4 mg IV Q6HP PRN PRN Reason: Nausea And Vomiting Last Admin: 06/14/22 09:51 Dose: 4 mg Oxycodone HCl (Oxycodone Hcl 5 Mg Tablet) 5 mg PO Q4-6HP PRN; Protocol PRN Reason: Per Pain Protocol Last Admin: 06/17/22 16:25 Dose: 5 mg Sodium Chloride (0.9 % Sodium Chloride 10 Ml Syringe) 10 ml IV Q8 [facility] Last Admin: 06/17/22 14:17 Dose: 10 ml Warfarin Sodium (Warfarin Per Pharmacy) 1 order PO DAILY@1400 [facility] Last Admin: 06/17/22 14:13 Dose: Not Given A/P Narrative A/P Narrative: Assessment: 76-year-old female admitted for a small bowel obstruction requiring exploratory laparotomy with extensive lysis of adhesions on 06/10/2022. Postoperatively the patient developed atrial fibrillation with rapid ventricular response, hospital medicine was consulted for medical management. The patient was initially managed with IV rate control then transition to oral Lopressor and as needed IV Lopressor for rate control. Patient also received a couple doses of IV Lasix for diuresis. Echocardiogram showed normal LVEF, normal RV size with mildly reduced systolic function, moderate mitral regurgitation moderate pulmonary artery hypertension. Diet was advanced, the patient has improved cli nically however continues to require some oxygen supplementation. Patient has continued to have tachycardia and episodes of hypotension, cardiology consulted for assistance with atrial fibrillation rate control. *SBO: s/p ex-lap lysis (06/10) *Hypoxia likely due to CHF from recent IV fluid *Chronic AFib w/RVR: on coreg/warfarin -echo with good EF *HLD: *COPD: Plan: -Decrease Lopressor to 50 mg twice daily given hypotension this morning, continue Lopressor IV as needed for tachycardia. -CTA chest. -Cardiology consult to assist with A. fib rate control. -Oxygen supplementation, wean as tolerated. -Replace electrolytes as needed. 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
[2022-06-17] MEDS: ACETAMINOPHEN 500 MG/50 ML BAG IV PRN (19:26)
[2022-06-17] MEDS: LATANOPROST OPHTH DROPS 2.5ML BOTTLE OU SCH (20:08)
[2022-06-17] MEDS: ONDANSETRON 4 MG/2 ML VIAL IV PRN (20:51)
[2022-06-17] MEDS ORDERED: MELATONIN 3 MG TABLET PO PRN (21:00)
[2022-06-17] MEDS ORDERED: METOPROLOL TARTRATE 50 MG TABLET PO SCH (21:00)
[2022-06-18] MEDS: METOPROLOL TARTRATE 5 MG/5 ML VIAL IV PRN ×2 (03:31→14:53)
[2022-06-18] MEDS: 0.9 % SODIUM CHLORIDE 10 ML SYRINGE IV SCH ×4 (03:31→21:02)
--- NOTE | 2022-06-18 06:47 | XRay Report ---
INDICATION: Follow up after diuresis, continues to require O2. TECHNIQUE: AP chest x-ray COMPARISON: Previous chest x-rays dated 06/15/2022, 09/02/2020, 11/21/2017 FINDINGS: Lungs:Parenchymal density in the left retrocardiac region consistent with left lower lobe volume loss. Is possible. Heart, vascular:Cardiomegaly is unchanged. Vascularity appears improved. No pulmonary congestion or pulmonary edema Mediastinum, maría elena:No mediastinal widening. No hilar mass Pleura:Probable small bilateral pleural effusions. Right effusion is slightly decreased Skeletal:Negative. IMPRESSION: 1. Interval improvement with improved vascularity and probable slight decrease in right pleural fluid 2. Mild cardiomegaly, unchanged 3. Parenchymal density in left retrocardiac region consistent with left lower lobe atelectasis. Pneumonia is possible Interpreted and Authenticated by: Bharathi Walker 06/18/22
[2022-06-18 06:48] LABS: Basophils # (Auto) 0.04 K/mcL (0.00-0.30); Basophils % (Auto) 0.4 % (0.0-2.0); Eosinophils # (Auto) 0.24 K/mcL (0.00-0.70); Eosinophils % (Auto) 2.3 % (0.0-7.0); Hematocrit 33.9 % (34.1-44.9); Hemoglobin 10.7 g/dL (11.2-15.7); Lymphocytes # (Auto) 0.98 K/mcL (1.50-4.80); Lymphocytes % (Auto) 9.6 % (15.5-49.0); Mean Cell Volume 98.8 fL (80.0-100.0); Mean Corpuscular HGB Conc 31.6 g/dL (31.0-36.0); Mean Platelet Volume 11.1 fL (8.8-12.5); Monocytes # (Auto) 1.69 K/mcL (0.10-0.90); Monocytes % (Auto) 16.5 % (1.0-12.0); Neutrophils % (Auto) 70.4 % (38.0-78.0); Platelet Count 237 K/mcL (140-440); RBC 3.43 M/mcL (3.59-5.38); Red Cell Distribution Width 13.5 % (11.5-14.5); WBC 10.2 K/mcL (4.5-11.0)
[2022-06-18 06:54] LABS: Prothrombin Time 23.1 sec (11.9-14.5)
[2022-06-18 07:28] LABS: ALT/SGPT 11 U/L (<40); AST/SGOT 15 U/L (<32); Albumin/Globulin Ratio 1.4 (1.0-2.3); Alkaline Phosphatase 95 U/L (39-117); Bilirubin,Direct < 0.2 mg/dL (0-0.3); Bilirubin,Total 0.4 mg/dL (0.1-1.0); Blood Urea Nitrogen 9 mg/dL (8-23); Calcium 8.9 mg/dL (8.6-10.4); Carbon Dioxide 39 mmol/L (22-30); Chloride 97 mmol/L (96-108); Globulin 2.1 gm/dL (2.2-3.7); Glomerular Filtration Rate 110; Glucose 115 mg/dL (70-105); Lactate Dehydrogenase 154 U/L (135-225); Phosphorous 5.1 mg/dL (2.5-4.5); Triglycerides 105 mg/dL (<150); Uric Acid 3.7 mg/dL (2.5-8.0)
[2022-06-18] MEDS: HYDROmorphone 0.5 MG/0.5 ML SYRINGE IV PRN (08:38)
[2022-06-18] MEDS: INSULIN LISPRO 1 UNIT/0.01 ML UNIT SQ SCH ×2 (08:39→12:16)
[2022-06-18] MEDS ORDERED: METOPROLOL TARTRATE 50 MG TABLET PO SCH (09:00)
[2022-06-18] MEDS ORDERED: IOPAMIDOL 100 ML BOTTLE IV ONE (09:39)
--- NOTE | 2022-06-18 10:17 | Cat Scan Report ---
INDICATION: Persistent tachycardia and hypotension COMPARISON: Previous chest x-rays dated 06/18/2022, 06/15/2022 TECHNIQUE: Axial images obtained through the chest. 90ml Isovue 370 injected intravenously, and scanning was performed during pulmonary arterial phase. Sagittally and coronally reformatted images were obtained. MIP reformatted images. FINDINGS: Lungs:Mild centrilobular emphysema with upper lobe predominance. This is consistent with smoking history. Small focal left lower lobe parenchymal density most consistent with atelectasis. No pulmonary parenchymal mass. There is no evidence for pulmonary fibrosis. Mediastinum, vascular:Main pulmonary artery, right pulmonary artery, left pulmonary artery are negative. No intraluminal filling defects. No lobar, segmental, or subsegmental emboli. Thoracic aorta is negative. No aneurysmal dilatation Main pulmonary artery measures 3.0 cm in cross-sectional diameter. This is borderline enlarged No pathologic mediastinal or hilar adenopathy Heart:There is cardiomegaly with biatrial enlargement. No significant reflux of contrast material into the inferior vena cava or hepatic veins Pleura:There are bilateral pleural effusions. Small left pleural effusion and moderate right pleural effusion. Axilla, supraclavicular regions, chest wall:No pathologic axillary or supraclavicular adenopathy. Musculoskeletal:Negative thoracic spine. No compression fracture. No lytic lesion. No rib or sternal lesions Upper Abdomen:Small amount of ascitic fluid in the perihepatic space IMPRESSION: 1. Negative pulmonary CTA 2. Bilateral pleural effusions, right larger than left 3. Small amount of ascitic fluid in the perihepatic space 4. Cardiomegaly with biatrial enlargement 5. Centrilobular emphysema 6. Left lower lobe pulmonary parenchymal density consistent with atelectasis The exam was performed using radiation dose optimization techniques including, but not limited to, automated exposure control, adjustment of the mA and/or kV according to patient size and use of iterative reconstruction technique. Interpreted and Authenticated by: Bharathi Walker 06/18/22
--- NOTE | 2022-06-18 12:37 | Cardiology Consult Note ---
HPI History of Present Illness Patient information: Note initiated : 06/18/22 at 12:23 pm Service Date, if different from initiated Date: [] Patient: Tatyana Cordero a 76 y/o F admitted on 06/07/22 for Lower Chest Pain. Chief Complaint: [] Chief complaint: A. fib with RVR, hypotension History of present illness: Ms. Cordero is a 76 year old F Seen today as requested consultation by the hospital medicine service. She was admitted with a small bowel obstruction and had a exploratory laparotomy. She has been known to have chronic atrial fibrillation. Her blood pressure is typically low. But asymptomatic. Since recovering from surgery she has had atrial fibrillation with rapid ventricular rates. Controlling her rate has been difficult due to low blood pressure. At times systolic pressure has been in the 80s. Prior to admission she was reported to be on carvedilol 37.5 twice daily and digoxin 0.125 daily for rate control. She is currently taking carvedilol 25 twice daily but she is experiencing heart rates in the 130s. She has had an echocardiogram on June 11 with reported EF 55 to 60% no significant valve d isease and mild right ventricular hypokinesis. She has no complaints of palpitations syncope or near syncope. 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 History of tubal ligation 1977? Family History Mother Lung cancer Grandfather Lung cancer Maternal Grandmother Lung cancer Maternal Social History marital status: occupational status: retired smoking status: Current every day smoker alcohol intake frequency: does not drink substance use type: does not use MEDS/ALLERGIES Home Medications and Allergies Home Medications Medication Instructions Recorded Confirmed Type bevacizumab 25 mg/mL intravenous 25 mg IV .[id number] 10/05/20 06/07/22 History solution (Avastin) multivitamin [Daily Vitamins] 1 tab PO QDAY 10/05/20 06/07/22 History simvastatin 20 mg tablet 20 mg PO DAILY 10/05/20 06/08/22 History carvedilol 25 mg tablet (Coreg) 25 mg PO BID 10/11/20 06/07/22 History potassium chloride 10 mEq 10 meq PO BID #90 caps 11/22/20 06/07/22 Rx capsule,extended release warfarin 5 mg tablet See Rx Instructions .Route 04/11/22 06/07/22 Rx .COMPLEX #30 tabs latanoprost 0.005 % eye drops 1 drp ophthalmic (eye) QPM 06/08/22 06/08/22 History Allergies Allergy/AdvReac Type Severity Reaction Status Date / Time azithromycin AdvReac Mild Diarrhea Verified 06/11/22 07:43 cephalexin AdvReac Mild Diarrhea Verified 06/11/22 07:43 clindamycin AdvReac Mild Diarrhea Verified 06/11/22 07:43 Physical Examination Vital Signs Vital Signs: Temp Pulse Resp BP Pulse Ox O2 Del Method O2 Flow Rate 98.7 F 116 H 20 83/59 95 1.5 06/18/22 07:48 06/18/22 07:48 06/18/22 07:48 06/18/22 07:48 06/18/22 07:48 06/18/22 07:48 06/18/22 07:48 Physical Examination General: Present No Apparent Distress and Other (Thin elderly and frail) HEENT: Present EOMI Neck: Present Supple Neck and No JVD/HJR Cardiac: Present Irregularly Regular, No Murmur and Tachycardia Lungs: Present Decreased Breath Sounds, No Wheezes and No Rales Neuro: Present Cranial Nerve 2-12 Intact, Weakness, No Lateralizing Findings and Grossly Intact Abdomen: Present Soft and Decreased Bowel Sounds Skin: Present Clear Extremities: Present No Clubbing, No Cyanosis and No Edema Results Labs and Meds Result diagrams: 06/18/22 05:37 06/18/22 05:37 Lab results: Cardiac Enzymes 06/18/22 Range/Units 05:37 AST 15 (<32) U/L Lactate Dehydrogenase 154 (135-225) U/L Coagulation 06/18/22 Range/Units 05:36 PT 23.1 H (11.9-14.5) sec Lipids 06/18/22 Range/Units 05:37 Triglycerides 105 (<150) mg/dL CBC 06/18/22 Range/Units 05:37 WBC 10.2 (4.5-11.0) K/mcL RBC 3.43 L (3.59-5.38) M/mcL Hgb 10.7 L (11.2-15.7) g/dL Hct 33.9 L (34.1-44.9) % Plt Count 237 (140-440) K/mcL Lymph # (Auto) 0.98 L (1.50-4.80) K/mcL Waller # (Auto) 1.69 H (0.10-0.90) K/mcL Eos # (Auto) 0.24 (0.00-0.70) K/mcL Baso # (Auto) 0.04 (0.00-0.30) K/mcL Comprehensive Metabolic Panel 06/18/22 Range/Units 05:37 Sodium 140 (133-145) mmol/L Potassium 4.2 (3.3-5.1) mmol/L Chloride 97 (96-108) mmol/L Carbon Dioxide 39 H (22-30) mmol/L BUN 9 (8-23) mg/dL Creatinine 0.3 L (0.6-1.1) mg/dL Glucose 115 H (70-105) mg/dL Calcium 8.9 (8.6-10.4) mg/dL Direct Bilirubin < 0.2 (0-0.3) mg/dL AST 15 (<32) U/L ALT 11 (<40) U/L Alkaline Phosphatase 95 (39-117) U/L Total Protein 5.1 L (5.9-8.4) gm/dL Albumin 3.0 L (3.2-5.2) gm/dL Current Medications Generic Name Dose Route Start Last Admin Trade Name Freq PRN Reason Stop Dose Admin Bisacodyl 10 mg 06/17/22 12:09 Bisacodyl 10 Mg Supp.Rect [place] PRN PRN Constipation Dextrose 0 ml 06/10/22 19:36 Dextrose 50% 50 Ml Vial IV UD PRN Per Sliding Scale Diagnostic Test (Pha) 1 each 06/15/22 11:30 06/18/22 12:16 Accu-Chek 1 Each Strip FS Not Given ACHS [facility] Glucose 15 gm 06/10/22 19:36 Dextrose 31 Gm Oral.Susp PO PRN PRN Hypoglycemia Hydromorphone HCl 0.5 mg 06/08/22 04:30 06/18/22 08:38 Hydromorphone 0.5 Mg/0.5 Ml Syringe IV 0.5 mg Q2HP PRN Administration Per Pain Protocol Protocol Acetaminophen 500 mg in 50 mls @ 100 mls/hr 06/07/22 17:15 06/17/22 20:10 Ofirmev IV Infused Q6HP PRN Infusion PAIN/FEVER > 101 Protocol Insulin Human Lispro 0 unit 06/10/22 21:00 06/18/22 12:16 Insulin Lispro 1 Unit/0.01 Ml Unit SQ Not Given ACHS ON LICENSE OF [facility] Protocol Latanoprost 1 gtt 06/10/22 21:00 06/17/22 20:08 Latanoprost Ophth Drops 2.5ml Bottle OU 1 gtt QPM [facility] Administration Melatonin 6 mg 06/17/22 21:00 06/17/22 20:07 Melatonin 3 Mg Tablet PO 6 mg HSP PRN Administration Sleep Metoprolol Tartrate 5 mg 06/10/22 19:13 06/18/22 03:31 Metoprolol Tartrate 5 Mg/5 Ml Vial IV 5 mg Q2HP PRN Administration Tachyarrhythmias HR>110 Metoprolol Tartrate 50 mg 06/18/22 09:00 06/18/22 10:11 Metoprolol Tartrate 50 Mg Tablet PO 50 mg BID [facility] Administration Ondansetron HCl 4 mg 06/07/22 12:50 06/17/22 20:51 Ondansetron 4 Mg/2 Ml Vial IV 4 mg Q6HP PRN Administration Nausea And Vomiting Oxycodone HCl 5 mg 06/15/22 08:42 06/17/22 23:26 Oxycodone Hcl 5 Mg Tablet PO 5 mg Q4-6HP PRN Administration Per Pain Protocol Protocol Sodium Chloride 10 ml 06/07/22 14:00 06/18/22 06:03 0.9 % Sodium Chloride 10 Ml Syringe IV Not Given Q8 ON LICENSE OF [facility] Warfarin Sodium 1 order 06/16/22 14:00 06/17/22 14:13 Warfarin Per Pharmacy PO Not Given DAILY@1400 ON LICENSE OF [facility] Warfarin Sodium 5 mg 06/18/22 14:00 Warfarin 5 Mg Tablet PO 06/18/22 14:01 ONCE@1400 ONE Intake and Output 06/17/22 06/18/22 06/18/22 21:59 05:59 13:59 Intake Total 490 100 Output Total 460 201 100 Balance 30 -101 -100 Intake: IV 0 Oral 490 100 Output: Void Amount 460 200 100 # of times incontinent of urine 1 Other: Meal Dinner Percent of Meal Consumed 100% Urine Appearance Clear Urine Color Yellow Dark Yellow Urine Odor Normal Normal Weight 54.431 kg Imaging and Cardiology Imaging Narrative: Narrative: Echo: report reviewed EKG Interpretation EKG shows: atrial fibrillation ( Low voltage, rate controlled at 94 on June) EKG interpretations EKG Interpretation: Telemetry reviewed: A. fib with rapid ventricular rates. Recent heart rates in the 120s and 130s. No significant pauses. No asystole's EKG shows: atrial fibrillation ( Low voltage, rate controlled at 94 on June 10, 2022) A/P Assessment and plan (1) Atrial fibrillation: Assessment and plan: Tatyana has chronic atrial fibrillation. Historically she is rate controlled. However she had been on previously higher doses of carvedilol based on outpatient chart review from cardiology from last year. She also had been on digoxin. She is not hypervolemic on exam. And I suspect that she may be mildly dehydrated and this would contribute to both her low blood pressures as well as rapid heart rates. Plan: Continue Anticoagulation with warfarin. INR goal 2-3. Rehydrate gently, and restart digoxin which she had been on as an outpatient last year. She may be loaded with 1gm over 24 hours. It may be necessary to increase her beta-senia dose. Since she has low blood pressure I would change her carvedilol to metoprolol. Metoprolol should lower blood pressure less than carvedilol. I would start her metoprolol succinate dose at 100 twice daily. And be prepared to increase to 150 twice daily. I would also started digoxin as a digoxin michelle d1 g over 24 hours then 0.125 daily. She should follow-up with cardiology in 1 to 2 weeks after discharge from the hospital Status: Chronic Time Spent With Patient Time: Total time spent is greater than 50% in coordination of care (as documented) at patient's floor/unit and/or counseling patient:
[2022-06-18] MEDS: DIGOXIN 125 MCG TABLET PO SCH ×2 (13:49→21:01)
[2022-06-18] MEDS ORDERED: WARFARIN 2.5 MG TABLET PO SCH (14:00)
[2022-06-18] MEDS ORDERED: WARFARIN 5 MG TABLET PO ONE (14:00)
[2022-06-18] MEDS: oxyCODONE HCL 5 MG TABLET PO PRN (14:52)
--- NOTE | 2022-06-18 16:08 | General Surgery Progress Note ---
SUBJECTIVE Subjective Patient information: Note initiated : 06/18/22 at 4:06 pm Service Date, if different from initiated Date: [] Patient: Tatyana Cordero 76 y/o F admitted on 06/07/22 for Lower Chest Pain. Chief Complaint: [] Principal diagnosis: Partial SBO, postop day #8 status post exploratory laparotomy with TAMMY Interval history: Patient had return of bowel function, was feeling very good, tolerating p.o. diet. Still requiring 1.5 L of oxygen, heart rate still greater than 100. Last night started to have left lower quadrant abdominal pain and distention. Constitutional Vitals: Vital Signs Temp Pulse Resp BP Pulse Ox O2 Del Method O2 Flow Rate 98.2 F 136 H 20 97/51 94 2 06/18/22 12:00 06/18/22 12:00 06/18/22 12:00 06/18/22 12:00 06/18/22 12:00 06/18/22 12:00 06/18/22 12:00 Period Temp Pulse Resp BP Sys/Solomon Pulse Ox O2 Del Method O2 Flow Rate Last 24 Hr 97.2 F-98.7 F 100-136 16-20 83-137/50-73 92-98 Nasal Cannula- Nasal Cannula 1-2 Intake and Output 06/18/22 06/18/22 06/18/22 05:59 13:59 21:59 Intake Total 100 Output Total 201 200 Balance -101 -200 Weight 120 lb Patient Weight 06/19/22 05:59 Weight 120 lb Intake & Output: Intake & Output 06/18/22 06/18/22 06/18/22 05:59 13:59 21:59 Intake Total 100 Output Total 201 200 Balance -101 -200 Weight 120 lb Intake: Oral 100 Output: Void Amount 200 200 # of times incontinent of urine 1 Other: Urine Appearance Clear Urine Color Dark Yellow Urine Odor Normal Exam: Conversant, looks well, daughter at bedside Respiratory Additional comments: Remains on O2, normal effort, non labored Cardiovascular Cardiovascular exam: Present RRR GI/Abdominal Additional comments: soft and non distended, VAC in place and working well Extremities Exam Additional comments: appear well perfused A/P Assessment and plan (1) Small bowel obstruction: Plan: Small bowel obstruction had appeared to resolve care, she does now have left lower quadrant abdominal pain. Plan: DC Prevena wound care device. CT scan abdomen pelvis with IV and oral contrast. Status: Acute Time Spent With Patient Time: Total time spent is greater than 50% in coordination of care (as documented) at patient's floor/unit and/or counseling patient:
--- NOTE | 2022-06-18 19:22 | Cat Scan Report ---
INDICATION: follow up sbo COMPARISON: Previous examination dated 06/07/2022 TECHNIQUE: Axial images were obtained through the abdomen and pelvis. Sagittally and coronally reformatted images. Oral contrast material was given FINDINGS: Lung bases:Bilateral lower lobe pulmonary parenchymal density consistent with atelectasis. There are bilateral pleural effusions, right larger than left. These are new since 06/07/2022 There is cardiomegaly with marked right atrial enlargement Liver:No acute abnormality. There are parenchymal consolidations in the posterior right lobe, unchanged. No new attenuation abnormality Gallbladder, bilary: All bladder is not well visualized. No calcified gallstones Spleen:No splenomegaly. Normal enhancement of splenic and portal veins. Pancreas:No pancreatic mass. No peripancreatic abnormality Adrenal glands:Bilateral adrenal enlargement and left adrenal nodules are unchanged Kidneys,ureters,bladder:There is contrast material with in the renal collecting system bilaterally. This is secondary to previous CT angiogram dated 06/18/2022. No detectable renal mass. There is no hydronephrosis No hydroureter. No ureteral calculus. No bladder stone. No detectable bladder mass. Gastrointestinal:There is contrast material within the colon. No detectable colonic mass. No evidence for diverticulitis Small bowel is dilated. Jejunum measures approximately 2.6 cm in cross-sectional diameter. There is no high-grade small bowel obstruction. Stomach is markedly distended and contains contrast material. Appendix: The appendix is not visualized. No evidence for appendicitis Vascular:Calcification of the abdominal aorta. No abdominal aortic aneurysm. Lymphatic:No retroperitoneal or mesenteric adenopathy Mesentery, peritoneum: Small amount of ascitic fluid. This is perihepatic and pelvic Reproductive:Uterus is not identified. No adnexal mass Musculoskeletal:No lumbar compression fractures. Sacrum and pelvis are negative. No hip fracture. There is a mass in the anterior abdominal wall. This measures 4.6 cm in AP dimension, 6.6 cm in mediolateral dimension, and 10.6 cm in craniocaudal dimension. EROS values measure approximately 50. Appearance is consistent with a rectus sheath hematoma. There is generalized subcutaneous edema. This is consistent with anasarca and is a new finding since 06/07/2022 IMPRESSION: 1. Findings consistent with left rectus sheath hematoma 2. Bilateral pleural effusions are new since 06/07/2022. Mild bilateral lower lobe atelectasis 3. Small amount of ascites in the perihepatic space and pelvis 4. Distended stomach partially filled with contrast. Small bowel is dilated but there is no high-grade small bowel obstruction. Contrast material is identified within the colon 5. Left adrenal nodule, unchanged 6. Generalized subcutaneous edema consistent with anasarca The exam was performed using radiation dose optimization techniques including, but not limited to, automated exposure control, adjustment of the mA and/or kV according to patient size and use of iterative reconstruction technique. Interpreted and Authenticated by: Bharathi Walker 06/18/22
--- NOTE | 2022-06-18 20:06 | General Surgery Progress Note ---
SUBJECTIVE Subjective Patient information: Note initiated : 06/18/22 at 8:04 pm Service Date, if different from initiated Date: [] Patient: Tatyana Cordero 76 y/o F admitted on 06/07/22 for Lower Chest Pain. Chief Complaint: [] Principal diagnosis: Partial SBO, postop day #8 status post exploratory laparotomy with TAMMY Interval history: Patient with new LLQ abdominal pain, CT scan done, c/w rectus sheath hematoma, no bowel obstruction. Constitutional Vitals: Vital Signs Temp Pulse Resp BP Pulse Ox O2 Del Method O2 Flow Rate 99.5 F H 117 H 20 100/53 95 2 06/18/22 16:00 06/18/22 16:00 06/18/22 16:00 06/18/22 16:00 06/18/22 16:00 06/18/22 16:00 06/18/22 16:00 Period Temp Pulse Resp BP Sys/Solomon Pulse Ox O2 Del Method O2 Flow Rate Last 24 Hr 97.2 F-99.5 F 100-136 16-20 83-100/50-59 94-98 Nasal Cannula- Nasal Cannula 1.5-2 Intake and Output 06/18/22 06/18/22 06/18/22 05:59 13:59 21:59 Intake Total 100 400 Output Total 201 200 100 Balance -101 -200 300 Weight 120 lb Patient Weight 06/19/22 05:59 Weight 120 lb Intake & Output: Intake & Output 06/18/22 06/18/22 06/18/22 05:59 13:59 21:59 Intake Total 100 400 Output Total 201 200 100 Balance -101 -200 300 Weight 120 lb Intake: Oral 100 400 Output: Void Amount 200 200 100 # of times incontinent of urine 1 Other: Meal Lunch Percent of Meal Consumed 25% Feeding Ability Assist with Tray Set Up Urine Appearance Clear Urine Color Dark Yellow Dark Yellow Urine Odor Normal Strong Stool Size Moderate Stool Color Brown Stool Consistency Veronica Loose # Bowel Movements 1 A/P Assessment and plan (1) Small bowel obstruction: Plan: rectus sheath hematoma - warm compresses q2 hours while awake plural effusion - per cardiology, IM Clear for discharge from surgical standpoint once cleared by IM Status: Acute Time Spent With Patient Time: Total time spent is greater than 50% in coordination of care (as documented) at patient's floor/unit and/or counseling patient:
[2022-06-18] MEDS: METOPROLOL SUCCINATE 50 MG TAB.XL.24H PO SCH (21:00)
[2022-06-18] MEDS: LATANOPROST OPHTH DROPS 2.5ML BOTTLE OU SCH (21:01)
[2022-06-19] MEDS: DIGOXIN 125 MCG TABLET PO SCH ×2 (01:48→08:13)
[2022-06-19] MEDS: 0.9 % SODIUM CHLORIDE 10 ML SYRINGE IV SCH ×2 (06:34→14:26)
[2022-06-19 07:39] LABS: Basophils # (Auto) 0.03 K/mcL (0.00-0.30); Basophils % (Auto) 0.3 % (0.0-2.0); Eosinophils # (Auto) 0.16 K/mcL (0.00-0.70); Eosinophils % (Auto) 1.6 % (0.0-7.0); Hematocrit 29.1 % (34.1-44.9); Hemoglobin 9.2 g/dL (11.2-15.7); Lymphocytes % (Auto) 11.3 % (15.5-49.0); Mean Corpuscular HGB Conc 31.6 g/dL (31.0-36.0); Mean Platelet Volume 11.4 fL (8.8-12.5); Monocytes # (Auto) 1.67 K/mcL (0.10-0.90); Monocytes % (Auto) 17.1 % (1.0-12.0); Platelet Count 196 K/mcL (140-440); RBC 2.94 M/mcL (3.59-5.38); Red Cell Distribution Width 13.3 % (11.5-14.5); WBC 9.7 K/mcL (4.5-11.0)
[2022-06-19 07:44] LABS: Prothrombin Time 31.7 sec (11.9-14.5)
[2022-06-19 07:51] LABS: ALT/SGPT 13 U/L (<40); AST/SGOT 23 U/L (<32); Albumin 2.6 gm/dL (3.2-5.2); Albumin/Globulin Ratio 1.3 (1.0-2.3); Alkaline Phosphatase 101 U/L (39-117); Bilirubin,Total 0.6 mg/dL (0.1-1.0); Blood Urea Nitrogen 6 mg/dL (8-23); Calcium 8.1 mg/dL (8.6-10.4); Carbon Dioxide 38 mmol/L (22-30); Chloride 93 mmol/L (96-108); Glomerular Filtration Rate 126; Glucose 82 mg/dL (70-105); Phosphorous 2.7 mg/dL (2.5-4.5)
[2022-06-19] MEDS: METOPROLOL SUCCINATE 50 MG TAB.XL.24H PO SCH (08:13)
--- NOTE | 2022-06-19 08:34 | Discharge Summary ---
Discharge Provider Provider IMPORTANT FOLLOW-UP INFORMATION FOR PCP: Patient information: Note initiated : 06/19/22 at 8:33 am Service Date, if different from initiated Date: [] Patient: Tatyana Cordero 76 y/o F admitted on 06/07/22 for Lower Chest Pain. Chief Complaint: [] Date of admission: 06/07/22 13:55 Discharge date: 06/19/22 Primary care physician: Keny Sanders MD Consults: 06/08/22 07:29 Consult to Physician [CONS] Routine Comment: Consulting Provider: Ricki Grant Reason For Exam: Physician to Consult 06/10/22 18:16 Consult to Physician [CONS] Routine Comment: pls assist with mgmt of a-fib. Consulting Provider: Kalpesh Tineo Reason For Exam: Physician to Consult 06/18/22 07:52 Consult to Physician [CONS] Routine Comment: Consulting Provider: Shakira [facility] Reason For Exam: Physician to Consult COURSE Hospital Course Hospital course: Patient is admitted with signs and symptoms consistent with a partial small bowel obstruction. Patient was admitted, NG tube placed. The patient was decompressed for 24 hours and then underwent a small bowel follow-through which did not show contrast into the colon consistent with a high-grade small bowel obstruction. We continued with decompression for 1 more day without resolution of bowel obstruction. Therefore patient went to the operating room for exploratory laparotomy with extensive lysis of adhesions. There was 1 significant adhesion causing complete obstruction with concerns for bowel ischemia however the bowel was not compromised after releasing the adhesion. There was a lot more adhesions in the pelvis these were all taken down to allow the bowel to start moving. Postop she progressed slowly and is now ambulatory, tolerating regular diet. She has required O2 and will be discharged on home O2 to be weaned over the next several weeks. Discharge diagnosis: Partial small bowel obstruction, status post exploratory laparotomy Time Spent with Patient Time attestation: Total time spent providing and/or coordinating discharge services: Time spent: Greater than 30 minutes Physical Examination Vital Signs Vital signs: Temp Pulse Resp BP Pulse Ox O2 Del Method O2 Flow Rate 98.7 F 86 20 96/55 97 2 06/19/22 07:49 06/19/22 07:49 06/19/22 07:49 06/19/22 07:49 06/19/22 07:49 06/19/22 07:49 06/19/22 07:49 Discharge Plan Patient/Caregiver Discharge Instructions Activity: increase activity as tolerated Activity Restrictions/Additional Instructions: Follow-up with me in 2 to 3 days. Follow-up with primary care provider for home O2 management. Activity as tolerated Prescriptions: New metoprolol succinate 50 mg Tablet Extended Release 24 Hr 100 mg PO BID 30 Days Qty: 120 0RF digoxin 125 mcg (0.125 mg) Tablet 125 mcg PO DAILY@1400 30 Days Qty: 30 0RF acetaminophen [Tylenol 8 Hour] 650 mg tablet extended release 650 mg PO Q8H PRN (Reason: pain) Qty: 90 0RF oxycodone 5 mg tablet 5 mg PO Q6H PRN (Reason: pain) Qty: 5 0RF Discontinued carvedilol [Coreg] 25 mg tablet 25 mg PO BID Rx Instructions: 37.5 mg (1.5 tabs) am, 25 mg pm PO No Action potassium chloride 10 mEq capsule, extended release 10 meq PO BID Qty: 90 1RF warfarin 5 mg tablet See Rx Instructions .ROUTE .COMPLEX Qty: 30 1RF Protocol: Dose Management Condition: Saturday Dose/Route: 5 mg Instruction: 1 x 5 mg tablet Condition: Saturday Dose/Route: 2.5 mg Instruction: 0.5 x 5 mg tablets Condition: Saturday Dose/Route: 5 mg Instruction: 1 x 5 mg tablet Condition: Saturday Dose/Route: 2.5 mg Instruction: 0.5 x 5 mg tablets Condition: Dose/Route: 5 mg Instruction: 1 x 5 mg tablet Condition: Saturday Dose/Route: 5 mg Instruction: 1 x 5 mg tablet Condition: Saturday Dose/Route: 5 mg Instruction: 1 x 5 mg tablet Protocol Text: Adjustment Start Date: Saturday05/28/22 INR Value: 1.5 INR Date: 05/28/22 Recheck Date: 06/11/22 Rx Instructions: 2.5 mg Saturday and Saturday; 5 mg the other 5 days simvastatin 20 mg tablet 20 mg PO DAILY Avastin 25 mg/mL solution 25 mg IV .[id number] multivitamin 1 tab PO QDAY latanoprost 0.005 % drops 1 drp OPHTHALMIC (EYE) QPM Rx Instructions: BOTH EYES Follow Up Plan Follow up with: Ricki Grant MD [Physician] - Seeber,Keny, MD [Primary Care Provider] - Patient Disposition: Home, Self-Care Prognosis: Fair Discharge Orders: Discharge Order (Routine); Ordered 06/19/22 Ordered By: Ricki Grant Pending Pending Pending: Resuscitation Status Resuscitate (Full Code) Diet Regular Diet Start SatJun 18 1453 Hydromorphone HCl (Hydromorphone 0.5 Mg/0.5 Ml Syringe) 0.5 mg IV Q2HP PRN; Protocol PRN Reason: Per Pain Protocol Last Admin: 06/18/22 08:38 Dose: 0.5 mg Documented By: Admin: 06/17/22 20:49 Dose: 0.5 mg Documented By: Admin: 06/17/22 18:32 Dose: 0.5 mg Documented By: Admin: 06/16/22 00:20 Dose: 0.5 mg Documented By: Admin: 06/15/22 10:57 Dose: 0.5 mg Documented By: Admin: 06/15/22 02:48 Dose: 0.5 mg Documented By: Admin: 06/14/22 23:28 Dose: 0.5 mg Documented By: Admin: 06/14/22 15:19 Dose: 0.5 mg Documented By: Admin: 06/13/22 23:06 Dose: 0.5 mg Documented By: Admin: 06/13/22 16:22 Dose: 0.5 mg Documented By: Admin: 06/13/22 11:56 Dose: 0.5 mg Documented By: Admin: 06/12/22 18:47 Dose: 0.5 mg Documented By: Admin: 06/12/22 10:54 Dose: 0.5 mg Documented By: Admin: 06/12/22 03:37 Dose: 0.5 mg Documented By: Admin: 06/11/22 23:50 Dose: 0.5 mg Documented By: Admin: 06/11/22 18:26 Dose: 0.5 mg Documented By: Admin: 06/11/22 13:51 Dose: 0.5 mg Documented By: Admin: 06/11/22 11:07 Dose: 0.5 mg Documented By: Admin: 06/11/22 06:54 Dose: 0.5 mg Documented By: Admin: 06/10/22 16:37 Dose: 0.5 mg Documented By: Admin: 06/10/22 08:51 Dose: 0.5 mg Documented By: Admin: 06/10/22 03:02 Dose: 0.5 mg Documented By: Admin: 06/08/22 21:17 Dose: 0.5 mg Documented By: Admin: 06/08/22 13:36 Dose: 0.5 mg Documented By: Admin: 06/08/22 10:55 Dose: 0.5 mg Documented By: Admin: 06/08/22 04:36 Dose: 0.5 mg Documented By: ISHAN Acetaminophen (Ofirmev) 500 mg in 50 mls @ 100 mls/hr IV Q6HP PRN; Protocol PRN Reason: PAIN/FEVER > 101 Last Infusion: 06/17/22 20:10 Dose: 0 mls/hr Documented By: Admin: 06/17/22 19:26 Dose: 100 mls/hr Documented By: Infusion: 06/14/22 18:08 Dose: 100 mls/hr Documented By: Admin: 06/14/22 17:17 Dose: 100 mls/hr Documented By: Infusion: 06/13/22 06:27 Dose: 0 mls/hr Documented By: Admin: 06/13/22 02:39 Dose: 100 mls/hr Documented By: Infusion: 06/12/22 21:17 Dose: 0 mls/hr Documented By: Admin: 06/12/22 18:46 Dose: 100 mls/hr Documented By: Infusion: 06/12/22 10:06 Dose: 0 mls/hr Documented By: Admin: 06/12/22 09:33 Dose: 100 mls/hr Documented By: Infusion: 06/11/22 23:14 Dose: 0 mls/hr Documented By: Admin: 06/11/22 20:22 Dose: 100 mls/hr Documented By: Infusion: 06/11/22 11:43 Dose: 0 mls/hr Documented By: Admin: 06/11/22 11:08 Dose: 100 mls/hr Documented By: Infusion: 06/11/22 00:19 Dose: 0 mls/hr Documented By: Admin: 06/10/22 23:36 Dose: 100 mls/hr Documented By: Infusion: 06/10/22 15:26 Dose: 0 mls/hr Documented By: Admin: 06/10/22 14:56 Dose: 100 mls/hr Documented By: Infusion: 06/10/22 06:37 Dose: 0 mls/hr Documented By: Admin: 06/10/22 05:11 Dose: 100 mls/hr Documented By: Infusion: 06/09/22 19:24 Dose: 0 mls/hr Documented By: Admin: 06/09/22 18:54 Dose: 100 mls/hr Documented By: Infusion: 06/09/22 06:15 Dose: 0 mls/hr Documented By: Admin: 06/09/22 05:12 Dose: 100 mls/hr Documented By: Infusion: 06/08/22 23:55 Dose: 0 mls/hr Documented By: Admin: 06/08/22 23:22 Dose: 100 mls/hr Documented By: Infusion: 06/08/22 14:10 Dose: 0 mls/hr Documented By: [email or web address] Admin: 06/08/22 13:35 Dose: 650 mls/hr Documented By: [email or web address] Infusion: 06/08/22 06:54 Dose: 0 mls/hr Documented By: [email or web address] Admin: 06/08/22 05:32 Dose: 100 mls/hr Documented By: Infusion: 06/08/22 00:13 Dose: 0 mls/hr Documented By: Admin: 06/07/22 23:43 Dose: 100 mls/hr Documented By: Infusion: 06/07/22 18:30 Dose: 0 mls/hr Documented By: Admin: 06/07/22 18:00 Dose: 100 mls/hr Documented By: ISHAN Latanoprost (Latanoprost Ophth Drops 2.5ml Bottle) 1 gtt OU QPM [facility] Last Admin: 06/18/22 21:01 Dose: 1 gtt Documented By: Admin: 06/17/22 20:08 Dose: 1 gtt Documented By: Admin: 06/16/22 20:55 Dose: 1 gtt Documented By: Admin: 06/15/22 20:55 Dose: Not Given Documented By: Admin: 06/14/22 22:00 Dose: Not Given Documented By: Admin: 06/13/22 20:26 Dose: 1 gtt Documented By: Admin: 06/12/22 23:51 Dose: Not Given Documented By: Admin: 06/11/22 20:58 Dose: Not Given Documented By: Admin: 06/10/22 22:06 Dose: Not Given Documented By: MELINA Melatonin (Melatonin 3 Mg Tablet) 6 mg PO HSP PRN PRN Reason: Sleep Last Admin: 06/17/22 20:07 Dose: 6 mg Documented By: LAURENCE Metoprolol Succinate (Metoprolol Succinate 50 Mg Tab.Xl.24h) 100 mg PO BID [facility] Last Admin: 06/19/22 08:13 Dose: 100 mg Documented By: Admin: 06/18/22 21:00 Dose: 100 mg Documented By: RACH Metoprolol Tartrate (Metoprolol Tartrate 5 Mg/5 Ml Vial) 5 mg IV Q2HP PRN PRN Reason: Tachyarrhythmias HR>110 Last Admin: 06/18/22 14:53 Dose: 5 mg Documented By: Admin: 06/18/22 03:31 Dose: 5 mg Documented By: Admin: 06/17/22 21:10 Dose: 5 mg Documented By: Admin: 06/17/22 01:00 Dose: 5 mg Documented By: Admin: 06/16/22 19:17 Dose: 5 mg Documented By: Admin: 06/16/22 16:33 Dose: 5 mg Documented By: Admin: 06/14/22 14:18 Dose: 5 mg Documented By: Admin: 06/11/22 17:57 Dose: 5 mg Documented By: Admin: 06/11/22 00:21 Dose: 5 mg Documented By: Admin: 06/10/22 19:33 Dose: 5 mg Documented By: MELINA Ondansetron HCl (Ondansetron 4 Mg/2 Ml Vial) 4 mg IV Q6HP PRN PRN Reason: Nausea And Vomiting Last Admin: 06/17/22 20:51 Dose: 4 mg Documented By: Admin: 06/14/22 09:51 Dose: 4 mg Documented By: Admin: 06/08/22 22:37 Dose: 4 mg Documented By: Admin: 06/08/22 03:50 Dose: 4 mg Documented By: ISHAN Oxycodone HCl (Oxycodone Hcl 5 Mg Tablet) 5 mg PO Q4-6HP PRN; Protocol PRN Reason: Per Pain Protocol Last Admin: 06/18/22 14:52 Dose: 5 mg Documented By: Admin: 06/17/22 23:26 Dose: 5 mg Documented By: Admin: 06/17/22 19:15 Dose: 5 mg Documented By: Admin: 06/17/22 16:25 Dose: 5 mg Documented By: Admin: 06/17/22 05:23 Dose: 5 mg Documented By: Admin: 06/16/22 23:43 Dose: 5 mg Documented By: Admin: 06/16/22 19:29 Dose: 5 mg Documented By: Admin: 06/16/22 10:04 Dose: 5 mg Documented By: Admin: 06/16/22 03:31 Dose: 5 mg Documented By: Admin: 06/15/22 22:42 Dose: 5 mg Documented By: Admin: 06/15/22 17:35 Dose: 5 mg Documented By: Admin: 06/15/22 08:47 Dose: 5 mg Documented By: DRU Sodium Chloride (0.9 % Sodium Chloride 10 Ml Syringe) 10 ml IV Q8 [facility] Last Admin: 06/19/22 06:34 Dose: Not Given Documented By: Admin: 06/18/22 21:02 Dose: 10 ml Documented By: Admin: 06/18/22 13:51 Dose: 10 ml Documented By: Admin: 06/18/22 06:03 Dose: Not Given Documented By: Admin: 06/18/22 03:31 Dose: 10 ml Documented By: Admin: 06/17/22 21:10 Dose: 10 ml Documented By: Admin: 06/17/22 20:52 Dose: 10 ml Documented By: Admin: 06/17/22 20:11 Dose: 10 ml Documented By: Admin: 06/17/22 18:33 Dose: 10 ml Documented By: Admin: 06/17/22 14:17 Dose: 10 ml Documented By: Admin: 06/17/22 05:26 Dose: 10 ml Documented By: Admin: 06/17/22 01:00 Dose: 10 ml Documented By: Admin: 06/16/22 20:54 Dose: 10 ml Documented By: Admin: 06/16/22 19:29 Dose: 10 ml Documented By: Admin: 06/16/22 16:34 Dose: 10 ml Documented By: Admin: 06/16/22 06:03 Dose: 10 ml Documented By: Admin: 06/16/22 00:20 Dose: 10 ml Documented By: Admin: 06/15/22 20:47 Dose: 10 ml Documented By: Admin: 06/15/22 12:27 Dose: Not Given Documented By: Admin: 06/15/22 05:11 Dose: Not Given Documented By: Admin: 06/14/22 20:49 Dose: Not Given Documented By: Admin: 06/14/22 14:18 Dose: 10 ml Documented By: Admin: 06/14/22 05:24 Dose: Not Given Documented By: Admin: 06/13/22 20:20 Dose: Not Given Documented By: Admin: 06/13/22 15:09 Dose: Not Given Documented By: Admin: 06/13/22 07:01 Dose: Not Given Documented By: Admin: 06/12/22 23:52 Dose: Not Given Documented By: Admin: 06/12/22 16:25 Dose: Not Given Documented By: Admin: 06/12/22 05:15 Dose: 10 ml Documented By: Admin: 06/11/22 20:58 Dose: 10 ml Documented By: Admin: 06/11/22 13:51 Dose: 10 ml Documented By: Admin: 06/11/22 06:49 Dose: Not Given Documented By: Admin: 06/10/22 22:00 Dose: Not Given Documented By: Admin: 06/10/22 15:14 Dose: Not Given Documented By: Admin: 06/10/22 04:57 Dose: Not Given Documented By: Admin: 06/09/22 20:50 Dose: Not Given Documented By: Admin: 06/09/22 13:00 Dose: Not Given Documented By: Admin: 06/09/22 05:13 Dose: Not Given Documented By: Admin: 06/08/22 22:12 Dose: Not Given Documented By: Admin: 06/08/22 15:33 Dose: Not Given Documented By: Admin: 06/08/22 04:37 Dose: Not Given Documented By: Admin: 06/07/22 23:43 Dose: Not Given Documented By: Admin: 06/07/22 14:26 Dose: Not Given Documented By: MAGALY Warfarin Sodium (Warfarin Per Pharmacy) 1 order PO DAILY@1400 [facility] Last Admin: 06/18/22 13:51 Dose: Not Given Documented By: Admin: 06/17/22 14:13 Dose: Not Given Documented By: Admin: 06/16/22 16:46 Dose: Not Given Documented By: KAYE Shift Summary 06/19/22 03:51 Shift Summary by Madalyn Fuentes Addendum entered by Madalyn Fuentes RN 06/19/22 04:43: Soft Bp's this shift Original Note: Primary Diagnosis: Partial SBO Registration Status: IP Date of Surgery (if applicable): 06/10- exploratory lap with lysis of adhesion Pertinent Medical Dx/Issue(s): Diverticulitis, COPD, A-fib Med management (antibiotics, diuretics, BP): Digoxin 0.25mcg given x 4 doses then to 0.125mcg daily; scheduled PO metoprolol; PRN IV Metoprolol 5mg for rate above 110. ACCU checks Skin/Wound Care: Abd midline incision is C/D/I, no s/s of infection noted Vital Signs with Trends: Elevated irregular HR all other VSS on 2L NC Pain management (acute vs. chronic): chronic pain; Pt did not s/s of pain on this shift. Pt requested pain meds earlier in the shift but was too soon to give med at that time, pt did not request any pain meds for rest of shift. Lab/Rad (abnormal, trends): AM labs drawn, results pending Abd CT completed on this shift, findings: IMPRESSION: 1. Findings consistent with left rectus sheath hematoma 2. Bilateral pleural effusions are new since 06/07/2022. Mild bilateral lower lobe atelectasis 3. Small amount of ascites in the perihepatic space and pelvis 4. Distended stomach partially filled with contrast. Small bowel is dilated but there is no high-grade small bowel obstruction. Contrast material is identified within the colon 5. Left adrenal nodule, unchanged 6. Generalized subcutaneous edema consistent with anasarca *Dr. Grant ordered Warm compresses to be applied to LLQ d/t hematoma Q2 hrs while awake Neuro/Mental Status: Alert and oriented x4; pleasant and cooperative Cardiac Rhythm, Alarm Settings: A-fib/tachy Urinary Elimination Device: Voiding per BSC d/t decreased stamina/increased HR. Urinary output greater than 30mL/hr? unknown urine/stool mixture this shift. Date of last BM: Lg liquid stools x2 this shift Lines/Tubes: IV to L wrist SL and RAC SL Activity: Up 1 person assist to BSC; did not ambulate d/t pain and rapid heart rate; Bed alarm on d/t pt transferring self to BR. Discharge Plan (needs, disposition, etc): TBD; Pt wants to return home when medically cleared Initialized on 06/19/22 03:51 - END OF NOTE
--- NOTE | 2022-06-19 10:53 | Cardiology Progress Note ---
SUBJECTIVE Subjective Patient information: Note initiated : 06/19/22 at 10:48 am Service Date, if different from initiated Date: [] Patient: Tatyana Cordero 76 y/o F admitted on 06/07/22 for Lower Chest Pain. Chief Complaint: [Atrial fibrillation with RR and hypotension] Principal diagnosis: Partial SBO, postop day #8 status post exploratory laparotomy with TMAMY Interval history: No change in cardiac symptoms. Is recommended she was initiated on digoxin loading dose. Carvedilol was stopped and she was started on metoprolol succinate. Since that her rate has been adequately controlled with resting rates less than 100. No pauses no asystole's. And no concerning bradycardias. Constitutional Vitals: Vital Signs Temp Pulse Resp BP Pulse Ox O2 Del Method O2 Flow Rate 98.7 F 86 20 96/55 97 2 06/19/22 07:49 06/19/22 07:49 06/19/22 07:49 06/19/22 07:49 06/19/22 07:49 06/19/22 07:49 06/19/22 07:49 Period Temp Pulse Resp BP Sys/Solomon Pulse Ox O2 Del Method O2 Flow Rate Last 24 Hr 97.9 F-99.5 F 86-136 20-24 95-102/51-66 94-97 Nasal Cannula- Nasal Cannula 2-2 Intake and Output 06/18/22 06/19/22 06/19/22 21:59 05:59 13:59 Intake Total 400 300 Output Total 350 250 Balance 50 50 Weight 52.753 kg Intake & Output: Intake & Output 06/18/22 06/19/22 06/19/22 21:59 05:59 13:59 Intake Total 400 300 Output Total 350 250 Balance 50 50 Weight 52.753 kg Intake: Oral 400 300 Output: Void Amount 150 Urine/Stool Mix 250 Stool 200 Other: Meal Lunch Percent of Meal Consumed 25% Feeding Ability Assist with Tray Set Up Urine Appearance Clear Urine Color Yellow Urine Odor Strong Stool Size Moderate Small Stool Color Brown Brown Stool Consistency Liquid Liquid Loose # Bowel Movements 1 # of times incontinent of 1 Bowels Respiratory Respiratory exam: Present normal respiratory exam Cardiovascular Cardiovascular exam: Present irregular rhythm Additional comments: Rate controlled Extremities Exam Additional comments: No edema A/P Narrative A/P Narrative: Patient has chronic atrial fibrillation. Heart rate controlled is now adequate with ventricular rates less than 110 bpm. There are no findings of asystole's nor pauses. She may continue on warfarin INR 2-3 for thromboembolic prophylaxis. She should continue on metoprolol and digoxin as currently dosed for rate control. She may follow-up with cardiology in 1 to 2 weeks after discharge. Time Spent With Patient Time: Total time spent is greater than 50% in coordination of care (as documented) at patient's floor/unit and/or counseling patient:
[2022-06-19] MEDS ORDERED: DIGOXIN 125 MCG TABLET PO SCH ×2 (14:00)
[2022-06-19] MEDS: oxyCODONE HCL 5 MG TABLET PO PRN (14:25)
== END 2022-06-19 14:55 | disposition home or self-care (01) | DRG 336 ==
LOC: ED 08:14 → MEDSUR 13:55 → ICU 06-11 02:28 → MEDSUR 06-13 17:17
PROVIDERS: ADMIT Surgery; ATTEND Surgery